=== PATIENT | female | born 1950 | race Caucasian/White ===

== ENCOUNTER 2017-08-13 12:01 | Emergency (ER) | payer MEDICARE, MEDICAID ==
[2017-08-13 12:45] VITALS: BP 138/78
--- NOTE | 2017-08-13 13:11 | EDM.PDOCBH ---
ED HPI GENERAL MEDICAL PROBLEM - General Chief Complaint: Drug or Alcohol Abuse Stated Complaint: DRINKING FOR A WHILD Time Seen by Provider: 08/13/17 13:10 Source of Information: Reports: Patient, Family History Limitations: Reports: No Limitations - History of Present Illness INITIAL COMMENTS - FREE TEXT/NARRATIVE: pt has been drinking heavily since mid May. She is drinking about a liter per day. She has been dry for a long time and then started drinking heavily again. Onset: Other ( drinking for several monthes/ ) Duration: Week(s): Associated Symptoms: Reports: No Other Symptoms - Related Data Allergies Allergy/AdvReac Type Severity Reaction Status Date / Time No Known Allergies Allergy Verified 08/13/17 12:45 Home Meds: Home Meds Atenolol 02/27/16 [History] DULoxetine [Cymbalta] 02/27/16 [History] Folic Acid 02/27/16 [History] Furosemide [Lasix] 02/27/16 [History] Gabapentin [Neurontin] 02/27/16 [History] Levothyroxine 02/27/16 [History] Omeprazole 02/27/16 [History] traZODone 50 mg PO BEDTIME 02/27/16 [History] Past Medical History HEENT History: Reports: Cataract, Impaired Vision Cardiovascular History: Reports: Heart Failure, Hypertension 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 Psychiatric History: Reports: Addiction - Past Surgical History Female Surgical History: Reports: Cervical Conization Musculoskeletal Surgical History: Reports: Shoulder Surgery Social & Family History - Tobacco Use Smoking Status *Q: Never Smoker - Alcohol Use Days Per Week of Alcohol Use: 7 Number of Drinks Per Day: 10 Total Drinks Per Week: 70 - Recreational Drug Use Recreational Drug Use: Yes Recreational Drug Type: Reports: Marijuana/Hashish Recreational Drug Use Frequency: Daily ED ROS GENERAL - Review of Systems Review Of Systems: See Below Constitutional: Reports: No Symptoms HEENT: Reports: No Symptoms Respiratory: Reports: No Symptoms Cardiovascular: Reports: No Symptoms Endocrine: Reports: No Symptoms GI/Abdominal: Reports: No Symptoms, Other (pt has not been omiting. ) : Reports: No Symptoms Musculoskeletal: Reports: No Symptoms Neurological: Reports: Other (pt is intoxicated. ) Psychiatric: Reports: Other (pt is intoxicated. ) ED EXAM, BEHAVIORAL HEALTH - Physical Exam Exam: See Below Text/Narrative:: pt arrived with a history of heavy drinking for several monthes . She wants help and wants to go to detox. Exam Limited By: No Limitations General Appearance: Alert, Other (pt is able to answer questions. She is intoxicated but has not been vomiting. ) Ears: Normal TMs Nose: Normal Inspection Throat/Mouth: Normal Inspection Head: Atraumatic Neck: Normal Inspection Respiratory/Chest: No Respiratory Distress, Other (pt has no rales present. ) Cardiovascular: Regular Rate, Rhythm GI/Abdominal: Soft, Non-Tender (Female) Exam: Deferred Rectal (Female) Exam: Deferred Back Exam: Normal Inspection Extremities: Normal Inspection Neurological: Alert, Normal Cognition, Other (intoxicated. ) Psychiatric: Alert, Normal Cognition COURSE, BEHAVIORAL HEALTH COMP - Course Vital Signs: Last Vital Signs Temp 35.9 C 08/13/17 12:43 Pulse 79 08/13/17 12:43 Resp 16 08/13/17 12:43 BP 138/78 08/13/17 12:43 Pulse Ox 90 L 08/13/17 12:43 Orders, Labs, Meds: Active Orders 24 hr Category Date Time Status UA W/MICROSCOPIC [URIN] Urgent Lab 08/13/17 12:46 Ordered Laboratory Tests 08/13/17 08/13/17 08/13/17 Range/Units 12:32 12:32 12:32 WBC 7.0 (4.5-11.0) K/uL RBC 4.93 (3.30-5.50) M/uL Hgb 15.2 H (12.0-15.0) g/dL Hct 45.8 (36.0-48.0) % MCV 93 (80-98) fL MCH 31 (27-31) pg MCHC 33 (32-36) % Plt Count 332 (150-400) K/uL Neut % (Auto) 36 (36-66) % Lymph % (Auto) 57 H (24-44) % [place] % (Auto) 6 (2-6) % Eos % (Auto) 1 L (2-4) % Baso % (Auto) 1 (0-1) % Sodium 148 (140-148) mmol/L Potassium 3.9 (3.6-5.2) mmol/L Chloride 105 (100-108) mmol/L Carbon Dioxide 34 H (21-32) mmol/L Anion Gap 12.9 (5.0-14.0) mmol/L BUN 7 (7-18) mg/dL Creatinine 0.6 (0.6-1.0) mg/dL Est Cr Clr Drug Dosing 80.72 mL/min Estimated GFR (MDRD) > 60 (>60) Glucose 92 (74-106) mg/dL Calcium 9.0 (8.5-10.1) mg/dL Total Bilirubin 0.2 (0.2-1.0) mg/dL AST 21 (15-37) U/L ALT 26 (12-78) U/L Alkaline Phosphatase 66 (46-116) U/L Total Protein 7.8 (6.4-8.2) g/dL Albumin 4.2 (3.4-5.0) g/dL Globulin 3.6 H (2.3-3.5) g/dL Albumin/Globulin Ratio 1.2 (1.2-2.2) Ethyl Alcohol 346 mg/dL Medications Discontinued Medications Generic Name Dose Route Start Last Admin Trade Name Freq PRN Reason Stop Dose Admin Lorazepam 1 mg 08/13/17 13:39 Ativan PO 08/13/17 13:40 ONETIME ONE Medical Clearance: 08/13/17 13:16 pt has a etoh level of .346, her other labs look good except she is on the dry side. oral fluids will be pushed. 08/13/17 13:59 The daughter in law was not able to take her to detox. She left her car keys here at the hospital. There is no other transportation to [place] and there is no bed until tomorrow at [facility]. Departure - Departure Time of Disposition: 14:01 Disposition: Home, Self-Care 01 Clinical Impression: Acute alcohol intoxication - Discharge Information Referrals: PCP,None [Primary Care Provider] - Forms: ED Department Discharge Care Plan Goals: pt is cleared for [facility]-- go to [facility] tomorrow. put labs in a envelope. - My Orders Last 24 Hours: My Active Orders 08/13/17 12:46 UA W/MICROSCOPIC [URIN] Urgent - Assessment/Plan Last 24 Hours: My Active Orders 08/13/17 12:46 UA W/MICROSCOPIC [URIN] Urgent
[2017-08-13] MEDS ORDERED: LORazepam 1 MG Tab PO ONE (13:39)
== END 2017-08-13 14:57 | disposition home or self-care (01) ==
LOC: JP.ED 12:01
DX: F10.129 Alcohol abuse with intoxication, unspecified (principal); Y90.8 Blood alcohol level of 240 mg/100 ml or more; I11.0 Hypertensive heart disease with heart failure; I50.9 Heart failure, unspecified
CPT/HCPCS: 36415; 80053; 85025; 99284; A9270; G0480

== ENCOUNTER 2017-08-30 08:15 | Emergency (ER) | payer MEDICARE, BC ==
[2017-08-30] MEDS ORDERED: LORazepam 1 MG Tab PO ONE (08:44)
--- NOTE | 2017-08-30 08:50 | EDM.PDOCBH ---
ED HPI GENERAL MEDICAL PROBLEM - General Chief Complaint: Drug or Alcohol Abuse Stated Complaint: EVAL FOR DETOX Time Seen by Provider: 08/30/17 08:45 Source of Information: Reports: Patient History Limitations: Reports: No Limitations - History of Present Illness INITIAL COMMENTS - FREE TEXT/NARRATIVE: pt arrived stating that she definitely wants to quit drinking. Her mother and grandmother were alcoholics. She has had a drinking problem all of her life. Onset: Other (pt hs not drank since yesterday and she is very shakey. ) Duration: Hour(s):, Other ( Pt was dry for year and now she is back drinking heavily. ) Location: Reports: Generalized Associated Symptoms: Reports: Other (pt is very shakey and is already starting withdrawal. 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 Psychiatric History: Reports: Addiction Endocrine/Metabolic History: Reports: Hypothyroidism - Past Surgical History Female Surgical History: Reports: Cervical Conization Musculoskeletal Surgical History: Reports: Shoulder Surgery Social & Family History - Tobacco Use Smoking Status *Q: Unknown Ever Smoked - Alcohol Use Days Per Week of Alcohol Use: 7 Number of Drinks Per Day: 10 Total Drinks Per Week: 70 - Recreational Drug Use Recreational Drug Use: Yes Recreational Drug Type: Reports: Marijuana/Hashish Recreational Drug Use Frequency: Daily ED ROS GENERAL - Review of Systems Review Of Systems: See Below Constitutional: Reports: Weakness, Other (pt is very shakey. ) HEENT: Reports: No Symptoms Respiratory: Reports: No Symptoms Cardiovascular: Reports: No Symptoms Endocrine: Reports: No Symptoms GI/Abdominal: Reports: No Symptoms : Reports: No Symptoms Musculoskeletal: Reports: Other ( very shakey) Skin: Reports: No Symptoms Neurological: Reports: Other ( withdrawal tremor) ED EXAM, BEHAVIORAL HEALTH - Physical Exam Exam: See Below Text/Narrative:: pt arrived stating that she had her last drink yesterday. She is very shakey. She was evaluated 2 weeks ago but [facility] not [facility] a bed. Exam Limited By: No Limitations General Appearance: Alert, Mild Distress, Other ( very shakey. pupils are equal and reactive. ) Ears: Normal TMs Nose: Normal Inspection Throat/Mouth: Normal Inspection Head: Atraumatic Neck: Normal Inspection Respiratory/Chest: No Respiratory Distress Cardiovascular: Regular Rate, Rhythm, Tachycardia GI/Abdominal: Soft, Non-Tender (Female) Exam: Deferred Rectal (Female) Exam: Deferred Back Exam: Normal Inspection Extremities: Normal Inspection Neurological: Alert, Normal Cognition Psychiatric: Alert COURSE, BEHAVIORAL HEALTH COMP - Course Vital Signs: Last Vital Signs Temp 36.5 C 08/30/17 08:26 Pulse 111 H 08/30/17 08:26 Resp 16 08/30/17 08:26 BP 131/94 H 08/30/17 08:26 Pulse Ox 99 08/30/17 08:26 Orders, Labs, Meds: Active Orders 24 hr Category Date Time Status DRUG SCREEN, URINE [URCHEM] Stat Lab 08/30/17 08:57 Ordered TSH ULTRASENSITIVE [CHEM] Stat Lab 08/30/17 09:13 Ordered UA W/MICROSCOPIC [URIN] Urgent Lab 08/30/17 08:57 Ordered Levofloxacin/Dextrose 5%-Water [Levaquin in D5W 500 MG/ Med 08/30/17 09:17 Active 100 ML] 500 mg Premix Bag 1 bag IV ONETIME Sodium Chloride 0.9% [Normal Saline] 1,000 ml Med 08/30/17 09:30 Active IV ASDIRECTED Medication Orders Sodium Chloride (Normal Saline) 1,000 mls @ 999 mls/hr IV ASDIRECTED NIRAJ Levofloxacin/Dextrose 500 mg/ (Premix) 100 mls @ 100 mls/hr IV ONETIME ONE Stop: 08/30/17 10:16 Laboratory Tests 08/30/17 08/30/17 08/30/17 Range/Units 08:51 08:51 08:51 WBC 12.8 H (4.5-11.0) K/uL RBC 5.79 H (3.30-5.50) M/uL Hgb 17.6 H D (12.0-15.0) g/dL Hct 51.6 H (36.0-48.0) % MCV 89 (80-98) fL MCH 30 (27-31) pg MCHC 34 (32-36) % Plt Count 368 (150-400) K/uL Neut % (Auto) 81 H (36-66) % Lymph % (Auto) 10 L (24-44) % [place] % (Auto) 8 H (2-6) % Eos % (Auto) 0 L (2-4) % Baso % (Auto) 0 (0-1) % Sodium 134 L (140-148) mmol/L Potassium 3.7 (3.6-5.2) mmol/L Chloride 92 L (100-108) mmol/L Carbon Dioxide 22 (21-32) mmol/L Anion Gap 23.7 H (5.0-14.0) mmol/L BUN 7 (7-18) mg/dL Creatinine 0.9 (0.6-1.0) mg/dL Est Cr Clr Drug Dosing 53.81 mL/min Estimated GFR (MDRD) > 60 (>60) Glucose 136 H (74-106) mg/dL Calcium 9.9 (8.5-10.1) mg/dL Total Bilirubin 1.4 H D (0.2-1.0) mg/dL AST 32 (15-37) U/L ALT 34 (12-78) U/L Alkaline Phosphatase 72 (46-116) U/L Total Protein 8.1 (6.4-8.2) g/dL Albumin 4.4 (3.4-5.0) g/dL Globulin 3.7 H (2.3-3.5) g/dL Albumin/Globulin Ratio 1.2 (1.2-2.2) Urine Color Urine Appearance Urine pH (4.5-8.0) Ur Specific [place] (1.008-1.030) Urine Protein (NEGATIVE) mg/dL Urine Glucose (UA) (NEGATIVE) mg/dL Urine Ketones (NEGATIVE) mg/dL Urine Occult Blood (NEGATIVE) Urine Nitrite (NEGATIVE) Urine Bilirubin (NEGATIVE) Urine Urobilinogen (NORMAL) mg/dL Ur Leukocyte Esterase (NEGATIVE) Urine RBC (0-5) Urine WBC (0-5) Ur Epithelial Cells Amorphous Sediment Urine Bacteria Urine Mucus Urine Other Urine Opiates Screen (NEGATIVE) Ur Oxycodone Screen (NEGATIVE) Urine Methadone Screen (NEGATIVE) Ur Propoxyphene Screen (NEGATIVE) Ur Barbiturates Screen (NEGATIVE) Ur Tricyclics Screen (NEGATIVE) Ur Phencyclidine Scrn (NEGATIVE) Ur Amphetamine Screen (NEGATIVE) U Methamphetamines Scrn (NEGATIVE) Urine MDMA Screen (NEGATIVE) U Benzodiazepines Scrn (NEGATIVE) U Cocaine Metab Screen (NEGATIVE) U Marijuana (THC) Screen (NEGATIVE) Ethyl Alcohol < 3 mg/dL 08/30/17 08/30/17 Range/Units 08:57 08:57 WBC (4.5-11.0) K/uL RBC (3.30-5.50) M/uL Hgb (12.0-15.0) g/dL Hct (36.0-48.0) % MCV (80-98) fL MCH (27-31) pg MCHC (32-36) % Plt Count (150-400) K/uL Neut % (Auto) (36-66) % Lymph % (Auto) (24-44) % [place] % (Auto) (2-6) % Eos % (Auto) (2-4) % Baso % (Auto) (0-1) % Sodium (140-148) mmol/L Potassium (3.6-5.2) mmol/L Chloride (100-108) mmol/L Carbon Dioxide (21-32) mmol/L Anion Gap (5.0-14.0) mmol/L BUN (7-18) mg/dL Creatinine (0.6-1.0) mg/dL Est Cr Clr Drug Dosing mL/min Estimated GFR (MDRD) (>60) Glucose (74-106) mg/dL Calcium (8.5-10.1) mg/dL Total Bilirubin (0.2-1.0) mg/dL AST (15-37) U/L ALT (12-78) U/L Alkaline Phosphatase (46-116) U/L Total Protein (6.4-8.2) g/dL Albumin (3.4-5.0) g/dL Globulin (2.3-3.5) g/dL Albumin/Globulin Ratio (1.2-2.2) Urine Color Yellow Urine Appearance Cloudy Urine pH 5.0 (4.5-8.0) Ur Specific [place] 1.025 (1.008-1.030) Urine Protein 500 H (NEGATIVE) mg/dL Urine Glucose (UA) 50 H (NEGATIVE) mg/dL Urine Ketones 150 H (NEGATIVE) mg/dL Urine Occult Blood Moderate (NEGATIVE) Urine Nitrite Negative (NEGATIVE) Urine Bilirubin Small (NEGATIVE) Urine Urobilinogen 1 (NORMAL) mg/dL Ur Leukocyte Esterase Large (NEGATIVE) Urine RBC 5-10 H (0-5) Urine WBC 30-40 H (0-5) Ur Epithelial Cells Moderate Amorphous Sediment Few Urine Bacteria Many Urine Mucus Many Urine Other See note Urine Opiates Screen Positive H (NEGATIVE) Ur Oxycodone Screen Negative (NEGATIVE) Urine Methadone Screen Negative (NEGATIVE) Ur Propoxyphene Screen Negative (NEGATIVE) Ur Barbiturates Screen Negative (NEGATIVE) Ur Tricyclics Screen Negative (NEGATIVE) Ur Phencyclidine Scrn Negative (NEGATIVE) Ur Amphetamine Screen Negative (NEGATIVE) U Methamphetamines Scrn Negative (NEGATIVE) Urine MDMA Screen Negative (NEGATIVE) U Benzodiazepines Scrn Negative (NEGATIVE) U Cocaine Metab Screen Negative (NEGATIVE) U Marijuana (THC) Screen Positive H (NEGATIVE) Ethyl Alcohol mg/dL Medications Generic Name Dose Route Start Last Admin Trade Name Freq PRN Reason Stop Dose Admin Sodium Chloride 1,000 mls @ 999 mls/hr 08/30/17 09:30 Normal Saline IV ASDIRECTED NIRAJ Levofloxacin/Dextrose 500 mg/ 100 mls @ 100 mls/hr 08/30/17 09:17 Premix IV 08/30/17 10:16 ONETIME ONE Discontinued Medications Generic Name Dose Route Start Last Admin Trade Name Freq PRN Reason Stop Dose Admin Lorazepam 1 mg 08/30/17 08:44 08/30/17 08:50 Ativan PO 08/30/17 08:45 1 mg ONETIME ONE Administration Medical Clearance: 08/30/17 09:18 pt is dehydrated and was found to have a UTI. She does have opiates in her urine and marajauna. 08/30/17 09:19 Pt will have a liter of fluid and levoquin Departure - Departure Time of Disposition: 09:20 Disposition: DC/Tfer to [facility] Hosp/Unit 65 Condition: Fair Clinical Impression: Withdrawal symptoms, alcohol, Dehydration, UTI (urinary tract infection) - Discharge Information Referrals: PCP,None [Primary Care Provider] - Forms: ED Department Discharge Care Plan Goals: transfer to [facility] 500mg bid for UTI - My Orders Last 24 Hours: My Active Orders 08/30/17 08:57 DRUG SCREEN, URINE [URCHEM] Stat UA W/MICROSCOPIC [URIN] Urgent 08/30/17 09:13 TSH ULTRASENSITIVE [CHEM] Stat 08/30/17 09:17 Levofloxacin/Dextrose 5%-Water [Levaquin in D5W 500 MG/100 ML] 500 mg Premix Bag 1 bag IV ONETIME 08/30/17 09:30 Sodium Chloride 0.9% [Normal Saline] 1,000 ml IV ASDIRECTED - Assessment/Plan Last 24 Hours: My Active Orders 08/30/17 08:57 DRUG SCREEN, URINE [URCHEM] Stat UA W/MICROSCOPIC [URIN] Urgent 08/30/17 09:13 TSH ULTRASENSITIVE [CHEM] Stat 08/30/17 09:17 Levofloxacin/Dextrose 5%-Water [Levaquin in D5W 500 MG/100 ML] 500 mg Premix Bag 1 bag IV ONETIME 08/30/17 09:30 Sodium Chloride 0.9% [Normal Saline] 1,000 ml IV ASDIRECTED
[2017-08-30] MEDS ORDERED: Levofloxacin/Dextrose 5%-Water 500 MG in Premix Bag 1 BAG IV ONE (09:17)
[2017-08-30] MEDS ORDERED: LORazepam 2 MG/ML SDV IVPUSH ONE (09:23)
[2017-08-30] MEDS ORDERED: Sodium Chloride 0.9% 1,000 ML IV SCH (09:30)
[2017-08-30 11:02] VITALS: BP 127/71
== END 2017-08-30 11:04 ==
LOC: JP.ED 08:15
DX: N39.0 Urinary tract infection, site not specified (principal); E86.0 Dehydration; I11.0 Hypertensive heart disease with heart failure; I50.9 Heart failure, unspecified; Z79.899 Other long term (current) drug therapy
CPT/HCPCS: 36415; 80053; 80305; 81001; 84443; 85025; 96365; 96375; 99285; A9270; G0480; J1956; J2060; J7040

== ENCOUNTER 2017-09-04 09:32 | Emergency (ER) | payer MEDICARE, MEDICAID ==
[2017-09-04 09:51] VITALS: BP 119/50
--- NOTE | 2017-09-04 10:18 | EDM.PDOCBH ---
ED HPI GENERAL MEDICAL PROBLEM - General Chief Complaint: Drug or Alcohol Abuse Stated Complaint: DRINKING PAST SEVERAL DAYS Time Seen by Provider: 09/04/17 10:11 Source of Information: Reports: Patient, Family, Old Records, RN Notes Reviewed History Limitations: Reports: Intoxication - History of Present Illness INITIAL COMMENTS - FREE TEXT/NARRATIVE: 67-year-old female presents to the emergency department today requesting detoxification facility placement. She was recently here on 30 August the same evaluation found to have a urinary tract infection at that time treated with Levaquin. She did go to [facility] detoxification facility was discharged on Tuesday, started drinking again over the last 24 hours now has return to the emergency department requesting detoxification - Related Data Allergies Allergy/AdvReac Type Severity Reaction Status Date / Time No Known Allergies Allergy Verified 08/30/17 08:28 Home Meds: Home Meds DULoxetine [Cymbalta] 60 mg PO DAILY 02/27/16 [History] Furosemide [Lasix] 20 mg PO ASDIRECTED PRN 02/27/16 [History] Gabapentin [Neurontin] 300 mg PO BID 02/27/16 [History] Levothyroxine 150 mcg PO DAILY 02/27/16 [History] Omeprazole 20 mg PO ASDIRECTED PRN 02/27/16 [History] traZODone 200 mg PO BEDTIME 02/27/16 [History] Past Medical History HEENT History: Reports: Cataract, Impaired Vision 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 Psychiatric History: Reports: Addiction Endocrine/Metabolic History: Reports: Hypothyroidism - Past Surgical History GI Surgical History: Reports: Hernia, Abdominal Other GI Surgeries/Procedures: tummy tuck Female Surgical History: Reports: Cervical Conization Musculoskeletal Surgical History: Reports: Shoulder Surgery Social & Family History - Tobacco Use Smoking Status *Q: Never Smoker - Caffeine Use Caffeine Use: Reports: Coffee, Energy Drinks, Soda, Tea - Alcohol Use Date of Last Drink: 09/04/17 - Recreational Drug Use Recreational Drug Type: Reports: Marijuana/Hashish Recreational Drug Use Frequency: Daily ED ROS GENERAL - Review of Systems Review Of Systems: ROS reveals no pertinent complaints other than HPI. ED EXAM, BEHAVIORAL HEALTH - Physical Exam Exam: See Below Exam Limited By: Intoxication General Appearance: Alert, No Apparent Distress Respiratory/Chest: No Respiratory Distress, Lungs Clear, Normal Breath Sounds, No Accessory Muscle Use Cardiovascular: Regular Rate, Rhythm, No Murmur GI/Abdominal: Soft, Non-Tender COURSE, BEHAVIORAL HEALTH COMP - Course Vital Signs: Last Vital Signs Temp 96.4 F 09/04/17 09:49 Pulse 80 09/04/17 09:49 Resp 20 09/04/17 09:49 BP 119/50 L 09/04/17 09:49 Pulse Ox 95 09/04/17 09:49 Orders, Labs, Meds: Active Orders 24 hr Category Date Time Status DRUG SCREEN, URINE [URCHEM] Stat Lab 09/04/17 10:26 Ordered Laboratory Tests 09/04/17 09/04/17 09/04/17 Range/Units 10:26 10:26 10:26 WBC 5.5 (4.5-11.0) K/uL RBC 4.63 (3.30-5.50) M/uL Hgb 14.5 D (12.0-15.0) g/dL Hct 43.0 (36.0-48.0) % MCV 93 (80-98) fL MCH 31 (27-31) pg MCHC 34 (32-36) % Plt Count 247 (150-400) K/uL Neut % (Auto) 36 (36-66) % Lymph % (Auto) 53 H (24-44) % [place] % (Auto) 8 H (2-6) % Eos % (Auto) 2 (2-4) % Baso % (Auto) 1 (0-1) % Sodium 148 (140-148) mmol/L Potassium 4.1 (3.6-5.2) mmol/L Chloride 108 (100-108) mmol/L Carbon Dioxide 32 (21-32) mmol/L Anion Gap 7.7 (5.0-14.0) mmol/L BUN 9 (7-18) mg/dL Creatinine 0.6 (0.6-1.0) mg/dL Est Cr Clr Drug Dosing 80.72 mL/min Estimated GFR (MDRD) > 60 (>60) Glucose 91 (74-106) mg/dL Calcium 8.1 L D (8.5-10.1) mg/dL Total Bilirubin 0.2 D (0.2-1.0) mg/dL AST 19 (15-37) U/L ALT 26 (12-78) U/L Alkaline Phosphatase 60 (46-116) U/L Total Protein 7.2 (6.4-8.2) g/dL Albumin 3.7 (3.4-5.0) g/dL Globulin 3.5 (2.3-3.5) g/dL Albumin/Globulin Ratio 1.1 L (1.2-2.2) Urine Opiates Screen (NEGATIVE) Ur Oxycodone Screen (NEGATIVE) Urine Methadone Screen (NEGATIVE) Ur Propoxyphene Screen (NEGATIVE) Ur Barbiturates Screen (NEGATIVE) Ur Tricyclics Screen (NEGATIVE) Ur Phencyclidine Scrn (NEGATIVE) Ur Amphetamine Screen (NEGATIVE) U Methamphetamines Scrn (NEGATIVE) Urine MDMA Screen (NEGATIVE) U Benzodiazepines Scrn (NEGATIVE) U Cocaine Metab Screen (NEGATIVE) U Marijuana (THC) Screen (NEGATIVE) Ethyl Alcohol 292 mg/dL 09/04/17 Range/Units 10:26 WBC (4.5-11.0) K/uL RBC (3.30-5.50) M/uL Hgb (12.0-15.0) g/dL Hct (36.0-48.0) % MCV (80-98) fL MCH (27-31) pg MCHC (32-36) % Plt Count (150-400) K/uL Neut % (Auto) (36-66) % Lymph % (Auto) (24-44) % [place] % (Auto) (2-6) % Eos % (Auto) (2-4) % Baso % (Auto) (0-1) % Sodium (140-148) mmol/L Potassium (3.6-5.2) mmol/L Chloride (100-108) mmol/L Carbon Dioxide (21-32) mmol/L Anion Gap (5.0-14.0) mmol/L BUN (7-18) mg/dL Creatinine (0.6-1.0) mg/dL Est Cr Clr Drug Dosing mL/min Estimated GFR (MDRD) (>60) Glucose (74-106) mg/dL Calcium (8.5-10.1) mg/dL Total Bilirubin (0.2-1.0) mg/dL AST (15-37) U/L ALT (12-78) U/L Alkaline Phosphatase (46-116) U/L Total Protein (6.4-8.2) g/dL Albumin (3.4-5.0) g/dL Globulin (2.3-3.5) g/dL Albumin/Globulin Ratio (1.2-2.2) Urine Opiates Screen Negative (NEGATIVE) Ur Oxycodone Screen Positive H (NEGATIVE) Urine Methadone Screen Positive H (NEGATIVE) Ur Propoxyphene Screen Negative (NEGATIVE) Ur Barbiturates Screen Negative (NEGATIVE) Ur Tricyclics Screen Negative (NEGATIVE) Ur Phencyclidine Scrn Negative (NEGATIVE) Ur Amphetamine Screen Negative (NEGATIVE) U Methamphetamines Scrn Negative (NEGATIVE) Urine MDMA Screen Negative (NEGATIVE) U Benzodiazepines Scrn Negative (NEGATIVE) U Cocaine Metab Screen Negative (NEGATIVE) U Marijuana (THC) Screen Negative (NEGATIVE) Ethyl Alcohol mg/dL Medications Discontinued Medications Generic Name Dose Route Start Last Admin Trade Name Freq PRN Reason Stop Dose Admin Lorazepam 2 mg 09/04/17 10:48 09/04/17 10:58 Ativan PO 09/04/17 10:49 2 mg ONETIME ONE Administration Departure - Departure Time of Disposition: 11:21 Disposition: DC/Tfer to In Rehab Fac 62 Condition: Poor Clinical Impression: Acute alcohol intoxication Qualifiers: Complication of substance-induced condition: uncomplicated Qualified Code(s): F10.929 - Alcohol use, unspecified with intoxication, unspecified - Discharge Information Referrals: PCP,None [Primary Care Provider] - Forms: ED Department Discharge Additional Instructions: Please report to [facility] for treatment - My Orders Last 24 Hours: My Active Orders 09/04/17 10:26 DRUG SCREEN, URINE [URCHEM] Stat - Assessment/Plan Last 24 Hours: My Active Orders 09/04/17 10:26 DRUG SCREEN, URINE [URCHEM] Stat Plan: Assessment Acuity = acute Site and laterality = alcohol abuse and intoxication Etiology = EtOH Manifestations = none Location of injury = Home Lab values = alcohol level is 292, CBC, CMP unremarkable urine drug screen positive for methadone and opiates Plan There is a bed available at [facility] family members will drive her to this facility This note was dictated using [email or web address] voice recognition software please call with any questions on syntax or grammar.
[2017-09-04] MEDS ORDERED: LORazepam 1 MG Tab PO ONE (10:48)
== END 2017-09-04 11:43 ==
LOC: JP.ED 09:32
DX: F10.120 Alcohol abuse with intoxication, uncomplicated (principal); Y90.8 Blood alcohol level of 240 mg/100 ml or more; I11.0 Hypertensive heart disease with heart failure; I50.9 Heart failure, unspecified; E03.9 Hypothyroidism, unspecified; Z79.899 Other long term (current) drug therapy
CPT/HCPCS: 36415; 80053; 85025; 99284; A9270; G0480

== ENCOUNTER 2017-10-01 13:52 | Emergency (ER) | payer MEDICARE, BC ==
[2017-10-01] MEDS ORDERED: LORazepam 2 MG/ML SDV IM ONE (14:25)
--- NOTE | 2017-10-01 14:36 | EDM.PDOCBH ---
ED HPI GENERAL MEDICAL PROBLEM - General Chief Complaint: Drug or Alcohol Abuse Stated Complaint: WITHDRAWEL, DETOX Time Seen by Provider: 10/01/17 14:19 Source of Information: Reports: Patient, EMS Notes Reviewed, RN Notes Reviewed History Limitations: Reports: No Limitations - History of Present Illness INITIAL COMMENTS - FREE TEXT/NARRATIVE: 7-year-old female presents emergency department with complaint of alcohol abuse and is requesting, she emergency department multiple times does have a plan to go to a focus group in [place] for alcohol treatment. Last consumed alcohol this morning - Related Data Allergies Allergy/AdvReac Type Severity Reaction Status Date / Time No Known Allergies Allergy Verified 10/01/17 14:23 Home Meds: Home Meds DULoxetine [Cymbalta] 60 mg PO DAILY 02/27/16 [History] Furosemide [Lasix] 20 mg PO ASDIRECTED PRN 02/27/16 [History] Gabapentin [Neurontin] 300 mg PO BID 02/27/16 [History] Levothyroxine 150 mcg PO DAILY 02/27/16 [History] Omeprazole 20 mg PO ASDIRECTED PRN 02/27/16 [History] traZODone 200 mg PO BEDTIME 02/27/16 [History] Past Medical History HEENT History: Reports: Cataract, Impaired Vision Cardiovascular History: Reports: Heart Failure, Hypertension 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 Psychiatric History: Reports: Addiction Endocrine/Metabolic History: Reports: Hypothyroidism - Past Surgical History GI Surgical History: Reports: Hernia, Abdominal Other GI Surgeries/Procedures: tummy tuck Female Surgical History: Reports: Cervical Conization Musculoskeletal Surgical History: Reports: Shoulder Surgery Social & Family History - Tobacco Use Smoking Status *Q: Current Every Day Smoker - Caffeine Use Caffeine Use: Reports: Coffee, Energy Drinks, Soda, Tea ED ROS GENERAL - Review of Systems Review Of Systems: See Below Constitutional: Reports: No Symptoms HEENT: Reports: No Symptoms Respiratory: Reports: No Symptoms Cardiovascular: Reports: No Symptoms GI/Abdominal: Reports: No Symptoms Musculoskeletal: Reports: No Symptoms Skin: Reports: No Symptoms Neurological: Reports: Tremors ED EXAM, BEHAVIORAL HEALTH - Physical Exam Exam: See Below Exam Limited By: Intoxication General Appearance: Alert, WD/WN, No Apparent Distress Neck: Normal Inspection, Supple, Non-Tender, Full Range of Motion Respiratory/Chest: No Respiratory Distress, Lungs Clear, Normal Breath Sounds, No Accessory Muscle Use, Chest Non-Tender Cardiovascular: Regular Rate, Rhythm, No Murmur GI/Abdominal: Soft, Non-Tender COURSE, BEHAVIORAL HEALTH COMP - Course Vital Signs: Last Vital Signs Temp 97.4 F 10/01/17 14:16 Pulse 87 10/01/17 14:16 Resp 16 10/01/17 14:16 BP 143/59 H 10/01/17 14:16 Pulse Ox 92 L 10/01/17 14:16 Orders, Labs, Meds: Active Orders 24 hr Category Date Time Status DRUG SCREEN, URINE [URCHEM] Stat Lab 10/01/17 14:30 Ordered UA W/MICROSCOPIC [URIN] Urgent Lab 10/01/17 14:30 Ordered Laboratory Tests 10/01/17 10/01/17 10/01/17 Range/Units 14:30 14:30 14:43 WBC 5.2 (4.5-11.0) K/uL RBC 4.72 (3.30-5.50) M/uL Hgb 14.8 (12.0-15.0) g/dL Hct 43.8 (36.0-48.0) % MCV 93 (80-98) fL MCH 31 (27-31) pg MCHC 34 (32-36) % Plt Count 265 (150-400) K/uL Neut % (Auto) 39 (36-66) % Lymph % (Auto) 52 H (24-44) % [place] % (Auto) 8 H (2-6) % Eos % (Auto) 1 L (2-4) % Baso % (Auto) 1 (0-1) % Sodium (140-148) mmol/L Potassium (3.6-5.2) mmol/L Chloride (100-108) mmol/L Carbon Dioxide (21-32) mmol/L Anion Gap (5.0-14.0) mmol/L BUN (7-18) mg/dL Creatinine (0.6-1.0) mg/dL Est Cr Clr Drug Dosing mL/min Estimated GFR (MDRD) (>60) Glucose (74-106) mg/dL Calcium (8.5-10.1) mg/dL Total Bilirubin (0.2-1.0) mg/dL AST (15-37) U/L ALT (12-78) U/L Alkaline Phosphatase (46-116) U/L Total Protein (6.4-8.2) g/dL Albumin (3.4-5.0) g/dL Globulin (2.3-3.5) g/dL Albumin/Globulin Ratio (1.2-2.2) Urine Color Yellow Urine Appearance Clear Urine pH 6.0 (4.5-8.0) Ur Specific [place] 1.010 (1.008-1.030) Urine Protein Negative (NEGATIVE) mg/dL Urine Glucose (UA) Normal (NEGATIVE) mg/dL Urine Ketones Negative (NEGATIVE) mg/dL Urine Occult Blood Negative (NEGATIVE) Urine Nitrite Negative (NEGATIVE) Urine Bilirubin Negative (NEGATIVE) Urine Urobilinogen Normal (NORMAL) mg/dL Ur Leukocyte Esterase Negative (NEGATIVE) Urine RBC Not seen (0-5) Urine WBC 0-5 (0-5) Ur Epithelial Cells Rare Amorphous Sediment Not seen Urine Bacteria Rare Urine Mucus Not seen Urine Opiates Screen Negative (NEGATIVE) Ur Oxycodone Screen Negative (NEGATIVE) Urine Methadone Screen Negative (NEGATIVE) Ur Propoxyphene Screen Negative (NEGATIVE) Ur Barbiturates Screen Negative (NEGATIVE) Ur Tricyclics Screen Negative (NEGATIVE) Ur Phencyclidine Scrn Negative (NEGATIVE) Ur Amphetamine Screen Negative (NEGATIVE) U Methamphetamines Scrn Negative (NEGATIVE) Urine MDMA Screen Negative (NEGATIVE) U Benzodiazepines Scrn Positive H (NEGATIVE) U Cocaine Metab Screen Negative (NEGATIVE) U Marijuana (THC) Screen Positive H (NEGATIVE) Ethyl Alcohol mg/dL 10/01/17 10/01/17 Range/Units 14:43 14:43 WBC (4.5-11.0) K/uL RBC (3.30-5.50) M/uL Hgb (12.0-15.0) g/dL Hct (36.0-48.0) % MCV (80-98) fL MCH (27-31) pg MCHC (32-36) % Plt Count (150-400) K/uL Neut % (Auto) (36-66) % Lymph % (Auto) (24-44) % [place] % (Auto) (2-6) % Eos % (Auto) (2-4) % Baso % (Auto) (0-1) % Sodium 140 (140-148) mmol/L Potassium 4.0 (3.6-5.2) mmol/L Chloride 101 (100-108) mmol/L Carbon Dioxide 32 (21-32) mmol/L Anion Gap 7.2 (5.0-14.0) mmol/L BUN 6 L (7-18) mg/dL Creatinine 0.7 (0.6-1.0) mg/dL Est Cr Clr Drug Dosing 69.19 mL/min Estimated GFR (MDRD) > 60 (>60) Glucose 77 (74-106) mg/dL Calcium 8.3 L (8.5-10.1) mg/dL Total Bilirubin 0.3 (0.2-1.0) mg/dL AST 22 (15-37) U/L ALT 28 (12-78) U/L Alkaline Phosphatase 69 (46-116) U/L Total Protein 7.2 (6.4-8.2) g/dL Albumin 3.8 (3.4-5.0) g/dL Globulin 3.4 (2.3-3.5) g/dL Albumin/Globulin Ratio 1.1 L (1.2-2.2) Urine Color Urine Appearance Urine pH (4.5-8.0) Ur Specific [place] (1.008-1.030) Urine Protein (NEGATIVE) mg/dL Urine Glucose (UA) (NEGATIVE) mg/dL Urine Ketones (NEGATIVE) mg/dL Urine Occult Blood (NEGATIVE) Urine Nitrite (NEGATIVE) Urine Bilirubin (NEGATIVE) Urine Urobilinogen (NORMAL) mg/dL Ur Leukocyte Esterase (NEGATIVE) Urine RBC (0-5) Urine WBC (0-5) Ur Epithelial Cells Amorphous Sediment Urine Bacteria Urine Mucus Urine Opiates Screen (NEGATIVE) Ur Oxycodone Screen (NEGATIVE) Urine Methadone Screen (NEGATIVE) Ur Propoxyphene Screen (NEGATIVE) Ur Barbiturates Screen (NEGATIVE) Ur Tricyclics Screen (NEGATIVE) Ur Phencyclidine Scrn (NEGATIVE) Ur Amphetamine Screen (NEGATIVE) U Methamphetamines Scrn (NEGATIVE) Urine MDMA Screen (NEGATIVE) U Benzodiazepines Scrn (NEGATIVE) U Cocaine Metab Screen (NEGATIVE) U Marijuana (THC) Screen (NEGATIVE) Ethyl Alcohol 214 mg/dL Medications Discontinued Medications Generic Name Dose Route Start Last Admin Trade Name Freq PRN Reason Stop Dose Admin Lorazepam 1 mg 10/01/17 14:25 10/01/17 14:50 Ativan IM 10/01/17 14:26 1 mg ONETIME ONE Administration Departure - Departure Time of Disposition: 15:40 Disposition: DC/Tfer to Inpt Rehab Fac 62 Condition: Poor Clinical Impression: Alcohol abuse Acute alcohol intoxication Qualifiers: Complication of substance-induced condition: uncomplicated Qualified Code(s): F10.929 - Alcohol use, unspecified with intoxication, unspecified - Discharge Information Referrals: PCP,None [Primary Care Provider] - Forms: ED Department Discharge Additional Instructions: Please report to [facility] for further treatment - My Orders Last 24 Hours: My Active Orders 10/01/17 14:30 DRUG SCREEN, URINE [URCHEM] Stat UA W/MICROSCOPIC [URIN] Urgent - Assessment/Plan Last 24 Hours: My Active Orders 10/01/17 14:30 DRUG SCREEN, URINE [URCHEM] Stat UA W/MICROSCOPIC [URIN] Urgent Plan: Assessment Acuity = acute Site and laterality = alcohol abuse and dependence complicated with cannabis use Etiology = EtOH Manifestations = none Location of injury = Home Lab values = CBC CMP unremarkable urine drug screen positive for benzodiazepines and cannabis alcohol level at 214 Plan Female that was available at [facility] detox[facility] facility she will be transported with family members This note was dictated using [employer] voice recognition software please call with any questions on syntax or grammar.
[2017-10-01 15:44] VITALS: BP 106/57
== END 2017-10-01 16:02 ==
LOC: JP.ED 13:52
DX: F10.120 Alcohol abuse with intoxication, uncomplicated (principal); Y90.7 Blood alcohol level of 200-239 mg/100 ml; F12.90 Cannabis use, unspecified, uncomplicated; Z79.899 Other long term (current) drug therapy; F17.200 Nicotine dependence, unspecified, uncomplicated; I11.0 Hypertensive heart disease with heart failure; I50.9 Heart failure, unspecified; E03.9 Hypothyroidism, unspecified
CPT/HCPCS: 36415; 80053; 80305; 81001; 85025; 99284; G0480; J2060

== ENCOUNTER 2018-05-17 17:17 | Emergency (ER) | payer MEDICARE, BC ==
--- NOTE | 2018-05-17 17:51 | EDM.PDOCBH ---
ED HPI GENERAL MEDICAL PROBLEM - General Chief Complaint: Drug or Alcohol Abuse Stated Complaint: MEDICAL VIA [facility] Time Seen by Provider: 05/17/18 17:35 Source of Information: Reports: Patient, EMS History Limitations: Reports: No Limitations - History of Present Illness INITIAL COMMENTS - FREE TEXT/NARRATIVE: 67-year-old female, chronic alcoholic who has been drinking for 5 straight days and wants to go to detox. This is a chronic recurring problem. She has no other complaints. Onset: Unknown/Unsure Associated Symptoms: Reports: No Other Symptoms general Pain Score (Numeric/FACES): 4 - Related Data Allergies Allergy/AdvReac Type Severity Reaction Status Date / Time No Known Allergies Allergy Verified 05/17/18 17:23 Home Meds: Home Meds DULoxetine [Cymbalta] 60 mg PO DAILY 02/27/16 [History] Furosemide [Lasix] 20 mg PO ASDIRECTED PRN 02/27/16 [History] Gabapentin [Neurontin] 900 mg PO BID 02/27/16 [History] Levothyroxine 88 mcg PO DAILY 02/27/16 [History] Omeprazole 20 mg PO ASDIRECTED PRN 02/27/16 [History] traZODone 200 mg PO BEDTIME 02/27/16 [History] Potassium Chloride [Klor-Con M20] 20 meq PO DAILY PRN 11/22/17 [History] Spironolactone [Aldactone] 25 mg PO DAILY 11/22/17 [History] busPIRone [Buspar] 10 mg PO BID 11/22/17 [History] hydrOXYzine pamoate [Vistaril] 1 - 2 tab PO QID PRN 11/22/17 [History] Past Medical History HEENT History: Reports: Cataract, Impaired Vision Cardiovascular History: Reports: Heart Failure, Hypertension 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 Psychiatric History: Reports: Addiction, Anxiety, Depression Endocrine/Metabolic History: Reports: Hypothyroidism - Past Surgical History GI Surgical History: Reports: Hernia, Abdominal Other GI Surgeries/Procedures: tummy tuck Female Surgical History: Reports: Cervical Conization Musculoskeletal Surgical History: Reports: Shoulder Surgery Social & Family History - Family History Family Medical History: Noncontributory - Tobacco Use Smoking Status *Q: Never Smoker - Caffeine Use Caffeine Use: Reports: Coffee - Alcohol Use Days Per Week of Alcohol Use: 7 Number of Drinks Per Day: 12 Total Drinks Per Week: 84 - Recreational Drug Use Recreational Drug Use: Yes Recreational Drug Type: Reports: Marijuana/Hashish Recreational Drug Use Frequency: Monthly ED ROS GENERAL - Review of Systems Review Of Systems: See Below Constitutional: Reports: Malaise, Decreased Appetite. Denies: Fever, Chills Respiratory: Denies: Shortness of Breath Cardiovascular: Denies: Chest Pain GI/Abdominal: Reports: Nausea. Denies: Abdominal Pain, Vomiting : Reports: No Symptoms Neurological: Denies: Headache Psychiatric: Reports: No Symptoms ED EXAM, BEHAVIORAL HEALTH - Physical Exam Exam: See Below Exam Limited By: Intoxication General Appearance: Alert, No Apparent Distress Eye Exam: Bilateral Eye: EOMI Head: Atraumatic Respiratory/Chest: No Respiratory Distress, Lungs Clear Cardiovascular: Regular Rate, Rhythm Extremities: Normal Inspection Neurological: Alert, Other (Patient is fairly intoxicated) Skin Exam: Warm, Dry COURSE, BEHAVIORAL HEALTH COMP - Course Vital Signs: Last Vital Signs Temp 95.3 F L 05/17/18 22:20 Pulse 89 05/17/18 22:20 Resp 16 05/17/18 22:20 BP 149/84 H 05/17/18 22:20 Pulse Ox 89 L 05/17/18 22:20 Orders, Labs, Meds: Laboratory Tests 05/17/18 05/17/18 05/17/18 Range/Units 18:00 18:00 18:00 WBC 7.2 (4.5-11.0) K/uL RBC 4.98 (3.30-5.50) M/uL Hgb 16.1 H (12.0-15.0) g/dL Hct 47.4 (36.0-48.0) % MCV 95 (80-98) fL MCH 32 H (27-31) pg MCHC 34 (32-36) % Plt Count 286 (150-400) K/uL Neut % (Auto) 51 (36-66) % Lymph % (Auto) 43 (24-44) % [place] % (Auto) 5 (2-6) % Eos % (Auto) 1 L (2-4) % Baso % (Auto) 1 (0-1) % Sodium 145 (140-148) mmol/L Potassium 3.9 (3.6-5.2) mmol/L Chloride 105 (100-108) mmol/L Carbon Dioxide 26 (21-32) mmol/L Anion Gap 14.0 (5.0-14.0) mmol/L BUN 8 D (7-18) mg/dL Creatinine 0.6 (0.6-1.0) mg/dL Est Cr Clr Drug Dosing 80.72 mL/min Estimated GFR (MDRD) > 60 (>60) Glucose 85 (74-106) mg/dL Calcium 8.5 (8.5-10.1) mg/dL Ethyl Alcohol 348 mg/dL Medications Discontinued Medications Generic Name Dose Route Start Last Admin Trade Name Freq PRN Reason Stop Dose Admin Lorazepam 1 mg 05/17/18 20:00 05/17/18 20:13 Ativan PO 05/17/18 20:01 1 mg ONETIME ONE Administration Re-Assessment/Re-Exam: EtOH is 0.348, CBC and CMP were otherwise reassuring. Normal saline was continued and arrangements were made for the patient to go to [facility] for detoxification. Departure - Departure Time of Disposition: 22:25 Disposition: DC/Tfer to Other 70 Condition: Fair Clinical Impression: Alcohol abuse, Alcohol intoxication - Discharge Information Instructions: Alcohol Intoxication, [id number] Referrals: PCP,None [Primary Care Provider] - Forms: ED Department Discharge Care Plan Goals: Patient is to be transferred to [place] for detoxification and possibly treatment.
[2018-05-17] MEDS ORDERED: LORazepam 1 MG Tab PO ONE (20:00)
[2018-05-17 22:21] VITALS: BP 149/84
== END 2018-05-17 22:15 | disposition other institution (70) ==
LOC: JP.ED 17:17
DX: F10.129 Alcohol abuse with intoxication, unspecified (principal); Y90.8 Blood alcohol level of 240 mg/100 ml or more; I50.9 Heart failure, unspecified; I10 Essential (primary) hypertension; G89.29 Other chronic pain; M54.9 Dorsalgia, unspecified; M54.2 Cervicalgia; M79.7 Fibromyalgia; F41.9 Anxiety disorder, unspecified; F32.9 Major depressive disorder, single episode, unspecified; E03.9 Hypothyroidism, unspecified; Z79.899 Other long term (current) drug therapy
CPT/HCPCS: 36415; 80048; 85025; 99285; A9270; G0480

== ENCOUNTER 2018-06-06 23:54 | Emergency (ER) | payer MEDICARE, BC ==
[2018-06-06 23:58] VITALS: BP 139/84
--- NOTE | 2018-06-07 01:02 | EDM.PDOC ---
<Oscar Bacon - Last Filed: 06/07/18 06:48> ED HPI GENERAL MEDICAL PROBLEM - General Chief Complaint: Drug or Alcohol Abuse Stated Complaint: ETOH ABUSE Time Seen by Provider: 06/07/18 00:15 Source of Information: Reports: Patient, EMS History Limitations: Reports: Intoxication - History of Present Illness INITIAL COMMENTS - FREE TEXT/NARRATIVE: 67-year-old female with chronic alcoholism, who I just sent to detox 2 weeks ago arrives by ambulance after drinking several liters of alcohol over the past several days. She again wants to go to detox. Onset: Unknown/Unsure Associated Symptoms: Reports: No Other Symptoms Throat Pain Score (Numeric/FACES): 3 - Related Data Allergies Allergy/AdvReac Type Severity Reaction Status Date / Time No Known Allergies Allergy Verified 06/07/18 00:00 Home Meds: Home Meds DULoxetine [Cymbalta] 60 mg PO DAILY 02/27/16 [History] Furosemide [Lasix] 20 mg PO ASDIRECTED PRN 02/27/16 [History] Gabapentin [Neurontin] 900 mg PO BID 02/27/16 [History] Levothyroxine 88 mcg PO DAILY 02/27/16 [History] Omeprazole 20 mg PO ASDIRECTED PRN 02/27/16 [History] traZODone 200 mg PO BEDTIME 02/27/16 [History] Potassium Chloride [Klor-Con M20] 20 meq PO DAILY PRN 11/22/17 [History] Spironolactone [Aldactone] 25 mg PO DAILY 11/22/17 [History] busPIRone [Buspar] 10 mg PO BID 11/22/17 [History] hydrOXYzine pamoate [Vistaril] 1 - 2 tab PO QID PRN 11/22/17 [History] Acamprosate Calcium 333 mg PO TID 06/06/18 [History] Past Medical History HEENT History: Reports: Cataract, Impaired Vision Cardiovascular History: Reports: Heart Failure, Hypertension 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 Psychiatric History: Reports: Addiction, Anxiety, Depression Endocrine/Metabolic History: Reports: Hypothyroidism - Past Surgical History GI Surgical History: Reports: Hernia, Abdominal Other GI Surgeries/Procedures: cesia bro Female Surgical History: Reports: Cervical Conization Musculoskeletal Surgical History: Reports: Shoulder Surgery Social & Family History - Family History Family Medical History: Noncontributory - Tobacco Use Smoking Status *Q: Never Smoker - Caffeine Use Caffeine Use: Reports: Coffee - Alcohol Use Days Per Week of Alcohol Use: 7 Number of Drinks Per Day: 40 Total Drinks Per Week: 280 Date of Last Drink: 06/07/18 - Recreational Drug Use Recreational Drug Use: Yes Drug Use in Last 12 Months: Yes Recreational Drug Type: Reports: Marijuana/Hashish Recreational Drug Use Frequency: Weekly ED ROS GENERAL - Review of Systems Review Of Systems: See Below Constitutional: Denies: Fever Respiratory: Denies: Shortness of Breath Cardiovascular: Denies: Chest Pain GI/Abdominal: Denies: Vomiting Neurological: Denies: Headache - Physical Exam Exam: See Below Exam Limited By: Intoxication General Appearance: Alert, No Apparent Distress, Other (Patient is fairly intoxicated, very sleepy and difficult to get a history from) Respiratory/Chest: No Respiratory Distress Cardiovascular: Regular Rate, Rhythm Neuro Exam (Abbreviated): Slow to Respond, Other (Very intoxicated) Course - Vital Signs Last Recorded V/S: Last Vital Signs Temp 94.6 F L 06/06/18 23:57 Pulse 95 06/06/18 23:57 Resp 16 06/06/18 23:57 BP 139/84 06/06/18 23:57 Pulse Ox 90 L 06/06/18 23:57 - Orders/Labs/Meds Labs: Laboratory Tests 06/07/18 Range/Units 00:25 Ethyl Alcohol 250 mg/dL - Re-Assessments/Exams Free Text/Narrative Re-Assessment/Exam: 06/07/18 01:02 EtOH is 0.250. Unfortunately [facility] no female beds available. She has no way to get home, her boyfriend doesn't drive. She'll be able to rest here tonight and [facility] may have a bed opening in the morning, if not she'll have to find a way home. 06/07/18 06:48 Patient slept all night, stable. Did get up wants to go to the bathroom and seemed much more coherent. [facility] may have a bed opening up this morning. Care is turned over to Dr. Boyd pending discharge. Departure - Departure Disposition: Home, Self-Care 01 Clinical Impression: Alcohol abuse - Discharge Information Referrals: PCP,Brina [Primary Care Provider] - Forms: ED Department Discharge Additional Instructions: Recommend stop using alcohol, Please followup with your primary care provider in 3-5 days if not better, please call return to the emergency department with worsening of symptoms. <Lukasz Boyd - Last Filed: 06/07/18 08:34> Departure - Departure Time of Disposition: 08:34 Condition: Poor - Assessment/Plan Plan: Assessment Acuity = acute on chronic Site and laterality = alcohol abuse and intoxication Etiology = EtOH Manifestations = none Location of injury = Home Lab values = alcohol level is 250 Plan She declined further help or treatment to go to detoxification prefer to be discharged home recommend refrain from alcohol follow-up with primary care as needed This note was dictated using [employer] voice recognition software please call with any questions on syntax or grammar.
[2018-06-07] MEDS ORDERED: Ibuprofen 600 MG Tab PO ONE (09:58)
== END 2018-06-07 11:13 | disposition home or self-care (01) ==
LOC: JP.ED 23:54
DX: F10.129 Alcohol abuse with intoxication, unspecified (principal); F41.9 Anxiety disorder, unspecified; F32.9 Major depressive disorder, single episode, unspecified; Y90.8 Blood alcohol level of 240 mg/100 ml or more
CPT/HCPCS: 36415; 99284; A9270; G0480

== ENCOUNTER 2018-07-29 20:31 | Emergency (ER) | payer BC, MEDICARE ==
[2018-07-29 20:39] VITALS: BP 142/78
--- NOTE | 2018-07-29 21:30 | EDM.PDOCBH ---
ED HPI GENERAL MEDICAL PROBLEM - General Chief Complaint: Drug or Alcohol Abuse Stated Complaint: MEDICAL VIA [facility] Time Seen by Provider: 07/29/18 20:50 Source of Information: Reports: Patient, EMS History Limitations: Reports: Intoxication - History of Present Illness INITIAL COMMENTS - FREE TEXT/NARRATIVE: 68-year-old chronic alcoholic is drinking again, brought in by ambulance requesting detox at [facility]. She has no pain or significant nausea or vomiting. Onset: Unknown/Unsure Associated Symptoms: Reports: No Other Symptoms - Related Data Allergies Allergy/AdvReac Type Severity Reaction Status Date / Time No Known Allergies Allergy Verified 07/29/18 20:39 Home Meds: Home Meds DULoxetine [Cymbalta] 60 mg PO DAILY 02/27/16 [History] Furosemide [Lasix] 20 mg PO ASDIRECTED PRN 02/27/16 [History] Gabapentin [Neurontin] 900 mg PO BID 02/27/16 [History] Levothyroxine 88 mcg PO DAILY 02/27/16 [History] Omeprazole 20 mg PO ASDIRECTED PRN 02/27/16 [History] traZODone 200 mg PO BEDTIME 02/27/16 [History] Potassium Chloride [Klor-Con M20] 20 meq PO DAILY PRN 11/22/17 [History] Spironolactone [Aldactone] 25 mg PO DAILY 11/22/17 [History] busPIRone [Buspar] 10 mg PO BID 11/22/17 [History] Metoprolol Succinate 1 tab PO 07/29/18 [History] Past Medical History HEENT History: Reports: Cataract, Impaired Vision Cardiovascular History: Reports: Heart Failure, Hypertension 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 Psychiatric History: Reports: Addiction, Anxiety, Depression Endocrine/Metabolic History: Reports: Hypothyroidism - Past Surgical History GI Surgical History: Reports: Hernia, Abdominal Other GI Surgeries/Procedures: tummy tuck Female Surgical History: Reports: Cervical Conization Musculoskeletal Surgical History: Reports: Shoulder Surgery Social & Family History - Family History Family Medical History: Noncontributory - Tobacco Use Smoking Status *Q: Never Smoker - Caffeine Use Caffeine Use: Reports: Coffee ED ROS GENERAL - Review of Systems Review Of Systems: See Below Constitutional: Denies: Fever, Chills Respiratory: Denies: Shortness of Breath Cardiovascular: Denies: Chest Pain GI/Abdominal: Denies: Abdominal Pain, Nausea, Vomiting Skin: Reports: No Symptoms. Denies: Bruising Neurological: Denies: Headache ED EXAM, BEHAVIORAL HEALTH - Physical Exam Exam: See Below Exam Limited By: Intoxication General Appearance: Alert, No Apparent Distress Eye Exam: Bilateral Eye: EOMI (No jaundice) Respiratory/Chest: No Respiratory Distress, Lungs Clear Cardiovascular: Regular Rate, Rhythm GI/Abdominal: Non-Tender Neurological: Alert Psychiatric: No: Depressed Mood, Flat Affect Skin Exam: Warm, Dry COURSE, BEHAVIORAL HEALTH COMP - Course Vital Signs: Last Vital Signs Temp 94.8 F L 07/29/18 20:46 Pulse 84 07/29/18 20:46 Resp 16 07/29/18 20:46 BP 142/78 H 07/29/18 20:46 Pulse Ox 96 07/29/18 20:46 Orders, Labs, Meds: Laboratory Tests 07/29/18 07/29/18 07/29/18 Range/Units 20:52 20:52 20:52 WBC 6.8 (4.5-11.0) K/uL RBC 4.71 (3.30-5.50) M/uL Hgb 14.8 (12.0-15.0) g/dL Hct 44.2 (36.0-48.0) % MCV 94 (80-98) fL MCH 31 (27-31) pg MCHC 34 (32-36) % Plt Count 229 (150-400) K/uL Neut % (Auto) 40 (36-66) % Lymph % (Auto) 50 H (24-44) % [place] % (Auto) 7 H (2-6) % Eos % (Auto) 3 (2-4) % Baso % (Auto) 0 (0-1) % Sodium 140 (140-148) mmol/L Potassium 4.3 (3.6-5.2) mmol/L Chloride 102 (100-108) mmol/L Carbon Dioxide 30 (21-32) mmol/L Anion Gap 8.2 (5.0-14.0) mmol/L BUN 10 (7-18) mg/dL Creatinine 0.7 (0.6-1.0) mg/dL Est Cr Clr Drug Dosing 71.14 mL/min Estimated GFR (MDRD) > 60 (>60) Glucose 84 (74-106) mg/dL Calcium 8.9 (8.5-10.1) mg/dL Ethyl Alcohol 231 mg/dL Re-Assessment/Re-Exam: CBC and CMP are normal, EtOH was 0.324. She is accepted to [facility] and transferred. Departure - Departure Time of Disposition: 21:44 Disposition: DC/Tfer to Other Condition: Fair Clinical Impression: Alcohol abuse Alcohol intoxication Qualifiers: Complication of substance-induced condition: uncomplicated Qualified Code(s): F10.920 - Alcohol use, unspecified with intoxication, uncomplicated - Discharge Information Instructions: Alcohol Intoxication, [id number] Referrals: PCP,None [Primary Care Provider] - Forms: ED Department Discharge Care Plan Goals: Patient will be transferred to [facility] for detoxification.
== END 2018-07-29 21:44 | disposition other institution (70) ==
LOC: JP.ED 20:31
DX: F10.120 Alcohol abuse with intoxication, uncomplicated (principal); Y90.7 Blood alcohol level of 200-239 mg/100 ml; I11.0 Hypertensive heart disease with heart failure; I50.9 Heart failure, unspecified; F41.9 Anxiety disorder, unspecified; F32.9 Major depressive disorder, single episode, unspecified; Z79.899 Other long term (current) drug therapy
CPT/HCPCS: 36415; 80048; 85025; 99284; G0480

== ENCOUNTER 2018-09-03 21:26 | Emergency (ER) | payer MEDICARE, BC ==
--- NOTE | 2018-09-03 21:39 | EDM.PDOC ---
<Omar Reynolds G - Last Filed: 09/03/18 23:30> ED HPI GENERAL MEDICAL PROBLEM - General Chief Complaint: Drug or Alcohol Abuse Stated Complaint: medical Time Seen by Provider: 09/03/18 22:00 Source of Information: Reports: Patient, EMS, Old Records History Limitations: Reports: No Limitations - History of Present Illness INITIAL COMMENTS - FREE TEXT/NARRATIVE: 68 yo female alcoholic comes in from her home via EMS requesting detox at [place]. Wants alcohol rehab. Has done both detox and rehab several times. Developed some chest pain in the ambulance that completely resolved with NTG SL x 1. She does not have a hx of CAD, but says she has CHF for over 5 yrs. She had her thyroid level checked within the past 6 mos. She has never smoked and denies lung dz, but thinks she may have sleep apnea. She does not feel that she has worse SOB than usual currently. Onset: Unknown/Unsure (recurrent) Duration: Chronic (alcoholism), Recurring Location: Reports: Generalized Quality: Reports: Dull (chest pain, now gone) Severity: Mild Improves with: Reports: Medication (NTG) Worsens with: Reports: Other (unknown) Context: Reports: Other (See HPI) Associated Symptoms: Reports: Other (alcohol intoxication) Treatments CLAMP REMOVER: Reports: Nitroglycerin (x one dose ) - Related Data Allergies Allergy/AdvReac Type Severity Reaction Status Date / Time No Known Allergies Allergy Verified 09/03/18 21:39 Home Meds: Home Meds DULoxetine [Cymbalta] 60 mg PO DAILY 02/27/16 [History] Furosemide [Lasix] 20 mg PO ASDIRECTED PRN 02/27/16 [History] Gabapentin [Neurontin] 900 mg PO BID 02/27/16 [History] Levothyroxine 88 mcg PO DAILY 02/27/16 [History] Omeprazole 20 mg PO DAILY 02/27/16 [History] traZODone 200 mg PO BEDTIME 02/27/16 [History] Potassium Chloride [Klor-Con M20] 20 meq PO DAILY PRN 11/22/17 [History] Spironolactone [Aldactone] 25 mg PO DAILY 11/22/17 [History] busPIRone [Buspar] 20 mg PO BID 11/22/17 [History] Metoprolol Succinate 25 mg PO DAILY 07/29/18 [History] Cholecalciferol (Vitamin D3) [Vitamin D3] 1,000 unit PO DAILY 08/22/18 [History] FA/Lycopene/Lut/MV,Ca,Iron,Min [Centrum] 1 tab PO DAILY 08/22/18 [History] Gluc 2KCl/Chondr/Maggi Hy/Hy Ac [Glucosamine & Chondroitin Cap] 1 tab PO DAILY [History] L.acidoph,Paracasei, B.lactis [Probiotic] 1 tab PO DAILY 08/22/18 [History] Milk Thistle 150 mg PO DAILY 08/22/18 [History] Multivitamin with Minerals [Hair, Skin and Nails] 1 tab PO DAILY 08/22/18 [ History] Turmeric 400 mg PO DAILY 08/22/18 [History] Ubidecarenone/[place]-3/Vit E [Co Q-10-Vit E-Fish Oil Sfgl] 1 tab PO DAILY [History] Vitamin B Complex [B Complex] 1 each PO DAILY 08/22/18 [History] Past Medical History HEENT History: Reports: Cataract, Impaired Vision Cardiovascular History: Reports: Heart Failure, Hypertension Respiratory History: Reports: None Gastrointestinal History: Reports: None Genitourinary History: Reports: None 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 Psychiatric History: Reports: Addiction, Anxiety, Depression Endocrine/Metabolic History: Reports: Hypothyroidism Hematologic History: Reports: None Immunologic History: Reports: None Oncologic (Cancer) History: Reports: None Dermatologic History: Reports: None - Past Surgical History Head Surgeries/Procedures: Reports: None Cardiovascular Surgical History: Reports: None GI Surgical History: Reports: Hernia, Abdominal Other GI Surgeries/Procedures: tummy tuck Female Surgical History: Reports: Cervical Conization Musculoskeletal Surgical History: Reports: Shoulder Surgery Social & Family History - Family History Family Medical History: Noncontributory - Caffeine Use Caffeine Use: Reports: Coffee ED ROS GENERAL - Review of Systems Review Of Systems: See Below Constitutional: Reports: No Symptoms HEENT: Reports: Other (dry mouth) Respiratory: Reports: Shortness of Breath (mild chronic) Cardiovascular: Reports: Chest Pain (now gone) Endocrine: Reports: No Symptoms, Polyuria : Reports: No Symptoms Musculoskeletal: Reports: No Symptoms Skin: Reports: No Symptoms Neurological: Reports: No Symptoms Psychiatric: Reports: Other (intoxication) - Physical Exam Exam: See Below Exam Limited By: Intoxication General Appearance: Alert, WD/WN, No Apparent Distress Eye Exam: Bilateral Eye: Normal Inspection Ears: Normal External Exam, Normal Canal, Hearing Grossly Normal, Normal TMs Nose: Normal Inspection, Normal Mucosa, No Blood Throat/Mouth: Normal Inspection, Normal Oropharynx, Normal Voice, No Airway Compromise, Other (dry lips and oral mucosa) Head Exam: Atraumatic, Normocephalic Neck: Normal Inspection, Non-Tender Respiratory/Chest: No Respiratory Distress, Lungs Clear, Normal Breath Sounds, No Accessory Muscle Use Cardiovascular: Regular Rate, Rhythm, No Edema GI/Abdominal: Normal Bowel Sounds, Soft, Non-Tender, No Distention Neuro Exam (Abbreviated): Alert, Oriented, CN II-XII Intact, Normal Cognition, No Motor/Sensory Deficits, Other (alcohol intoxication) Back Exam: Normal Inspection. No: CVA Tenderness (R), CVA Tenderness (L) Extremities: Normal Inspection, Normal Range of Motion, Non-Tender, No Pedal Edema Psychiatric: Normal Affect, Normal Mood Skin Exam: Warm, Dry, Intact, Normal Color, No Rash EKG INTERPRETATION EKG Date: 09/03/18 Time: 21:45 Rhythm: NSR Rate (Beats/Min): 80 [place]: Normal P-Wave: Present QRS: Normal ST-T: Normal QT: Normal Comparison: NA - No Prior EKG (Old Q's in III, and AVF) Course - Vital Signs Last Recorded V/S: Last Vital Signs Temp 98.4 F 09/03/18 22:08 Pulse 75 09/04/18 06:10 Resp 12 09/03/18 23:01 BP 122/65 09/04/18 06:10 Pulse Ox 96 09/04/18 06:10 - Orders/Labs/Meds Orders: Active Orders 24 hr Category Date Time Status EKG Documentation Completion [RC] ASDIRECTED Care 09/03/18 21:31 Active EKG 12 Lead [EK] Routine Ther 09/03/18 21:31 Ordered Labs: Laboratory Tests 09/03/18 09/03/18 09/03/18 Range/Units 22:07 22:07 22:07 D-Dimer, Quantitative (0.0-400.0) ng/mL Sodium 144 (140-148) mmol/L Potassium 4.1 (3.6-5.2) mmol/L Chloride 104 (100-108) mmol/L Carbon Dioxide 30 (21-32) mmol/L Anion Gap 10.1 (5.0-14.0) mmol/L BUN 11 (7-18) mg/dL Creatinine 0.8 (0.6-1.0) mg/dL Est Cr Clr Drug Dosing 59.73 mL/min Estimated GFR (MDRD) > 60 (>60) Glucose 98 (74-106) mg/dL Calcium 8.7 (8.5-10.1) mg/dL Troponin I < 0.017 (0.000-0.056) ng/mL Urine Color Urine Appearance Urine pH (4.5-8.0) Ur Specific [place] (1.008-1.030) Urine Protein (NEGATIVE) mg/dL Urine Glucose (UA) (NEGATIVE) mg/dL Urine Ketones (NEGATIVE) mg/dL Urine Occult Blood (NEGATIVE) Urine Nitrite (NEGATIVE) Urine Bilirubin (NEGATIVE) Urine Urobilinogen (NORMAL) mg/dL Ur Leukocyte Esterase (NEGATIVE) Urine RBC (0-5) Urine WBC (0-5) Ur Epithelial Cells Amorphous Sediment Urine Bacteria Urine Mucus Urine Opiates Screen (NEGATIVE) Ur Oxycodone Screen (NEGATIVE) Urine Methadone Screen (NEGATIVE) Ur Propoxyphene Screen (NEGATIVE) Ur Barbiturates Screen (NEGATIVE) Ur Tricyclics Screen (NEGATIVE) Ur Phencyclidine Scrn (NEGATIVE) Ur Amphetamine Screen (NEGATIVE) U Methamphetamines Scrn (NEGATIVE) Urine MDMA Screen (NEGATIVE) U Benzodiazepines Scrn (NEGATIVE) U Cocaine Metab Screen (NEGATIVE) U Marijuana (THC) Screen (NEGATIVE) Ethyl Alcohol 310 mg/dL 09/03/18 09/03/18 09/03/18 Range/Units 22:08 23:12 23:12 D-Dimer, Quantitative 171 (0.0-400.0) ng/mL Sodium (140-148) mmol/L Potassium (3.6-5.2) mmol/L Chloride (100-108) mmol/L Carbon Dioxide (21-32) mmol/L Anion Gap (5.0-14.0) mmol/L BUN (7-18) mg/dL Creatinine (0.6-1.0) mg/dL Est Cr Clr Drug Dosing mL/min Estimated GFR (MDRD) (>60) Glucose (74-106) mg/dL Calcium (8.5-10.1) mg/dL Troponin I (0.000-0.056) ng/mL Urine Color Yellow Urine Appearance Clear Urine pH 5.0 (4.5-8.0) Ur Specific [place] 1.010 (1.008-1.030) Urine Protein Negative (NEGATIVE) mg/dL Urine Glucose (UA) Normal (NEGATIVE) mg/dL Urine Ketones Negative (NEGATIVE) mg/dL Urine Occult Blood Negative (NEGATIVE) Urine Nitrite Negative (NEGATIVE) Urine Bilirubin Negative (NEGATIVE) Urine Urobilinogen Normal (NORMAL) mg/dL Ur Leukocyte Esterase Negative (NEGATIVE) Urine RBC 0-5 (0-5) Urine WBC 0-5 (0-5) Ur Epithelial Cells Few Amorphous Sediment Not seen Urine Bacteria Few Urine Mucus Not seen Urine Opiates Screen Negative (NEGATIVE) Ur Oxycodone Screen Negative (NEGATIVE) Urine Methadone Screen Negative (NEGATIVE) Ur Propoxyphene Screen Negative (NEGATIVE) Ur Barbiturates Screen Negative (NEGATIVE) Ur Tricyclics Screen Presumptive positive H (NEGATIVE) Ur Phencyclidine Scrn Negative (NEGATIVE) Ur Amphetamine Screen Negative (NEGATIVE) U Methamphetamines Scrn Negative (NEGATIVE) Urine MDMA Screen Negative (NEGATIVE) U Benzodiazepines Scrn Presumptive positive H (NEGATIVE) U Cocaine Metab Screen Negative (NEGATIVE) U Marijuana (THC) Screen Negative (NEGATIVE) Ethyl Alcohol mg/dL Meds: Medications Discontinued Medications Generic Name Dose Route Start Last Admin Trade Name Freq PRN Reason Stop Dose Admin Diazepam 5 mg 09/04/18 07:46 09/04/18 07:51 Valium. PO 09/04/18 07:47 5 mg ONETIME ONE Administration - Radiology Interpretation Free Text/Narrative:: CXR-negative Departure - Departure Disposition: Home, Self-Care 01 Condition: Fair Clinical Impression: Alcoholism Alcohol intoxication Qualifiers: Complication of substance-induced condition: uncomplicated Qualified Code(s): F10.920 - Alcohol use, unspecified with intoxication, uncomplicated - Discharge Information *PRESCRIPTION DRUG MONITORING PROGRAM REVIEWED*: No *COPY OF PRESCRIPTION DRUG MONITORING REPORT IN PATIENT SYEDA: No Instructions: Alcohol Use Disorder Referrals: PCP,None [Primary Care Provider] - Forms: ED Department Discharge Additional Instructions: Recommend refraining from alcohol, Please followup with your primary care provider in 3-5 days if not better, please call return to the emergency department with worsening of symptoms. <OfficerLukasz - Last Filed: 09/04/18 10:27> Departure - Departure Time of Disposition: 10:27 Condition: Poor - Assessment/Plan Plan: Took over care from Dr. Teran at 7 AM Assessment Acuity = acute Site and laterality = alcohol abuse and dependence Etiology = EtOH] Manifestations = none Location of injury = Home Lab values = alcohol is at 350, CBC, CMP, urinalysis unremarkable Plan She was offered treatment a bed was available however she declined she is going to go home with family member This note was dictated using [employer] voice recognition software please call with any questions on syntax or grammar.
--- NOTE | 2018-09-03 23:40 | CRLCR ---
Indication: Mild hypoxia Technique: Chest 2 views Comparison: None Findings: Cardiovascular and mediastinum: Normal heart size with aortic tortuosity. Lungs and pleural spaces: Lungs are clear. No sign of infiltrate or mass. No sign of pleural effusion. No pneumothorax. Bones and soft tissues: Status post cervical spine surgery. Status post distal right clavicular resection. Old T12 compression fracture. Impression: No acute cardiopulmonary abnormality. Dictated by Ivan Campbell MD @ Sep 03 2018 11:36PM Signed by Dr. Ivan Campbell @ Sep 03 2018 11:39PM
[2018-09-04 06:10] VITALS: BP 122/65
[2018-09-04] MEDS ORDERED: Diazepam 5 MG Tab PO ONE (07:46)
== END 2018-09-04 10:33 | disposition home or self-care (01) ==
LOC: JP.ED 21:26
DX: F10.20 Alcohol dependence, uncomplicated (principal); Y90.8 Blood alcohol level of 240 mg/100 ml or more; I11.0 Hypertensive heart disease with heart failure; I50.9 Heart failure, unspecified; F41.9 Anxiety disorder, unspecified; F32.9 Major depressive disorder, single episode, unspecified; E03.9 Hypothyroidism, unspecified; Z79.899 Other long term (current) drug therapy
CPT/HCPCS: 36415; 71046; 80048; 80305; 81001; 84484; 85379; 93005; 99284; A9270; G0480

== ENCOUNTER 2018-09-09 17:50 | Emergency (ER) | payer MEDICARE, BC ==
[2018-09-09 18:15] VITALS: BP 179/71
[2018-09-09] MEDS ORDERED: LORazepam 1 MG Tab PO ONE (19:06)
--- NOTE | 2018-09-09 19:47 | EDM.PDOCBH ---
ED HPI GENERAL MEDICAL PROBLEM - General Chief Complaint: Drug or Alcohol Abuse Stated Complaint: DETOX Time Seen by Provider: 09/09/18 19:30 Source of Information: Reports: Patient History Limitations: Reports: No Limitations - History of Present Illness INITIAL COMMENTS - FREE TEXT/NARRATIVE: 69-year-old female has a history of chronic alcoholism. She is seeking admission to [facility]. This is voluntary. She has been instructed to come to the emergency room to have an alcohol level done prior to transfer. She has been drinking alcohol today and her last drink was about an hour ago. She does not appear intoxicated at this time. She does complain of little bit of withdrawal and is feeling shaky. She does have a history of alcohol withdrawal seizures in the past. She has no other physical complaints at this time. Denies any drug abuse. Lower Back Pain Score (Numeric/FACES): 5 - Related Data Allergies Allergy/AdvReac Type Severity Reaction Status Date / Time No Known Allergies Allergy Verified 09/09/18 18:23 Home Meds: Home Meds DULoxetine [Cymbalta] 60 mg PO DAILY 02/27/16 [History] Furosemide [Lasix] 20 mg PO ASDIRECTED PRN 02/27/16 [History] Gabapentin [Neurontin] 900 mg PO BID 02/27/16 [History] Levothyroxine 88 mcg PO DAILY 02/27/16 [History] Omeprazole 20 mg PO DAILY 02/27/16 [History] traZODone 200 mg PO BEDTIME 02/27/16 [History] Potassium Chloride [Klor-Con M20] 20 meq PO DAILY PRN 11/22/17 [History] Spironolactone [Aldactone] 25 mg PO DAILY 11/22/17 [History] busPIRone [Buspar] 20 mg PO BID 11/22/17 [History] Metoprolol Succinate 25 mg PO DAILY 07/29/18 [History] Cholecalciferol (Vitamin D3) [Vitamin D3] 1,000 unit PO DAILY 08/22/18 [History] FA/Lycopene/Lut/MV,Ca,Iron,Min [Centrum] 1 tab PO DAILY 08/22/18 [History] Gluc 2KCl/Chondr/Maggi Hy/Hy Ac [Glucosamine & Chondroitin Cap] 1 tab PO DAILY [History] L.acidoph,Paracasei, B.lactis [Probiotic] 1 tab PO DAILY 08/22/18 [History] Milk Thistle 150 mg PO DAILY 08/22/18 [History] Multivitamin with Minerals [Hair, Skin and Nails] 1 tab PO DAILY 08/22/18 [ History] Turmeric 400 mg PO DAILY 08/22/18 [History] Ubidecarenone/[facility]-3/Vit E [Co Q-10-Vit E-Fish Oil Sfgl] 1 tab PO DAILY [History] Vitamin B Complex [B Complex] 1 each PO DAILY 08/22/18 [History] Past Medical History HEENT History: Reports: Cataract, Impaired Vision Cardiovascular History: Reports: Heart Failure, Hypertension Respiratory History: Reports: None Gastrointestinal History: Reports: None Genitourinary History: Reports: None 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, Musculoskeletal History: Reports: Back Pain, Chronic, Fibromyalgia, Neck Pain, Chronic Other Musculoskeletal History: torn rotator cuff Neurological History: Reports: Concussion, Seizure, Other (See Below) Other Neuro History: 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 Psychiatric History: Reports: Addiction, Anxiety, Depression, Panic Attack, PTSD Endocrine/Metabolic History: Reports: Hypothyroidism, Obesity/BMI 30+ Hematologic History: Reports: None Immunologic History: Reports: None Oncologic (Cancer) History: Reports: None Dermatologic History: Reports: None - Past Surgical History Head Surgeries/Procedures: Reports: None HEENT Surgical History: Reports: Cataract Surgery Cardiovascular Surgical History: Reports: None GI Surgical History: Reports: Hernia, Abdominal Other GI Surgeries/Procedures: tummy tuck Female Surgical History: Reports: Cervical Conization Endocrine Surgical History: Reports: None Neurological Surgical History: Reports: Spinal Fusion Musculoskeletal Surgical History: Reports: Shoulder Surgery Dermatological Surgical History: Reports: None Social & Family History - Family History Family Medical History: Noncontributory - Tobacco Use Smoking Status *Q: Never Smoker Second Hand Smoke Exposure: No - Caffeine Use Caffeine Use: Reports: Coffee, Soda - Alcohol Use Days Per Week of Alcohol Use: 7 Number of Drinks Per Day: 1 Total Drinks Per Week: 7 - Recreational Drug Use Recreational Drug Use: Yes Drug Use in Last 12 Months: No ED ROS GENERAL - Review of Systems Review Of Systems: See Below Constitutional: Denies: Fever, Chills, Weakness HEENT: Reports: No Symptoms Respiratory: Reports: No Symptoms Cardiovascular: Reports: No Symptoms GI/Abdominal: Reports: Nausea. Denies: Abdominal Pain, Vomiting : Reports: No Symptoms Psychiatric: Reports: No Symptoms ED EXAM, BEHAVIORAL HEALTH - Physical Exam Exam: See Below Exam Limited By: No Limitations General Appearance: Alert, No Apparent Distress Ears: Normal External Exam Nose: Normal Inspection Throat/Mouth: Normal Inspection Neck: Normal Inspection Respiratory/Chest: No Respiratory Distress, Lungs Clear, Normal Breath Sounds Cardiovascular: Normal Peripheral Pulses, Regular Rate, Rhythm Neurological: Alert, Normal Mood/Affect, Normal Cognition, Other (Mild shakiness.) Psychiatric: Alert, Normal Cognition COURSE, BEHAVIORAL HEALTH COMP - Course Vital Signs: Last Vital Signs Temp 35.9 C 09/09/18 18:26 Pulse 92 09/09/18 18:26 Resp 16 09/09/18 18:26 BP 179/71 H 09/09/18 18:26 Pulse Ox 94 L 09/09/18 18:26 Orders, Labs, Meds: Laboratory Tests 09/09/18 Range/Units 18:51 Ethyl Alcohol 163 mg/dL Medications Discontinued Medications Generic Name Dose Route Start Last Admin Trade Name Anu PRN Reason Stop Dose Admin Lorazepam 1 mg 09/09/18 19:06 09/09/18 19:19 Ativan PO 09/09/18 19:07 1 mg ONETIME ONE Administration Re-Assessment/Re-Exam: She was given 1 mg of Ativan by mouth for her shakiness caused by withdrawal. Departure - Departure Time of Disposition: 22:50 Disposition: DC/Tfer to [facility]/Unit 65 Condition: Good Clinical Impression: Desire for detoxification - Discharge Information *PRESCRIPTION DRUG MONITORING PROGRAM REVIEWED*: No *COPY OF PRESCRIPTION DRUG MONITORING REPORT IN PATIENT SYEDA: No Instructions: Alcohol Use Disorder Referrals: Van Perez MD [Primary Care Provider] - Forms: ED Department Discharge Care Plan Goals: Patient will be transferred to [place] at this time. - Problem List & Annotations (1) Desire for detoxification SNOMED Code(s): 271712222 Code(s): CYG5552 - Status: Acute
== END 2018-09-09 22:51 ==
LOC: JP.ED 17:50
DX: F10.239 Alcohol dependence with withdrawal, unspecified (principal); I11.0 Hypertensive heart disease with heart failure; I50.9 Heart failure, unspecified; E66.9 Obesity, unspecified; Z79.899 Other long term (current) drug therapy; Z98.49 Cataract extraction status, unspecified eye; Y90.6 Blood alcohol level of 120-199 mg/100 ml
CPT/HCPCS: 36415; 99285; A9270; G0480

== ENCOUNTER 2018-09-23 12:44 | Emergency (ER) | payer BC, MEDICARE ==
[2018-09-23 13:18] VITALS: BP 147/91
--- NOTE | 2018-09-23 13:38 | EDM.PDOC ---
ED HPI GENERAL MEDICAL PROBLEM - General Chief Complaint: Drug or Alcohol Abuse Stated Complaint: EVAL-DETOX Time Seen by Provider: 09/23/18 13:15 Source of Information: Reports: Patient, Family, RN Notes Reviewed History Limitations: Reports: Intoxication - History of Present Illness INITIAL COMMENTS - FREE TEXT/NARRATIVE: Juanis presents today with request to go to [facility] for detox. She denies fever, chills, nausea, vomiting, recent injury, trauma, falling or other drug use. - Related Data Allergies Allergy/AdvReac Type Severity Reaction Status Date / Time No Known Allergies Allergy Verified 09/23/18 13:05 Home Meds: Home Meds DULoxetine [Cymbalta] 60 mg PO DAILY 02/27/16 [History] Furosemide [Lasix] 20 mg PO ASDIRECTED PRN 02/27/16 [History] Gabapentin [Neurontin] 900 mg PO BID 02/27/16 [History] Levothyroxine 88 mcg PO DAILY 02/27/16 [History] Omeprazole 20 mg PO DAILY 02/27/16 [History] traZODone 200 mg PO BEDTIME 02/27/16 [History] Potassium Chloride [Klor-Con M20] 20 meq PO DAILY PRN 11/22/17 [History] Spironolactone [Aldactone] 25 mg PO DAILY 11/22/17 [History] busPIRone [Buspar] 20 mg PO BID 11/22/17 [History] Metoprolol Succinate 25 mg PO DAILY 07/29/18 [History] Cholecalciferol (Vitamin D3) [Vitamin D3] 1,000 unit PO DAILY 08/22/18 [History] FA/Lycopene/Lut/MV,Ca,Iron,Min [Centrum] 1 tab PO DAILY 08/22/18 [History] Gluc 2KCl/Chondr/Maggi Hy/Hy Ac [Glucosamine & Chondroitin Cap] 1 tab PO DAILY [History] L.acidoph,Paracasei, B.lactis [Probiotic] 1 tab PO DAILY 08/22/18 [History] Milk Thistle 150 mg PO DAILY 08/22/18 [History] Multivitamin with Minerals [Hair, Skin and Nails] 1 tab PO DAILY 08/22/18 [ History] Turmeric 400 mg PO DAILY 08/22/18 [History] Ubidecarenone/[place]-3/Vit E [Co Q-10-Vit E-Fish Oil Sfgl] 1 tab PO DAILY [History] Vitamin B Complex [B Complex] 1 each PO DAILY 08/22/18 [History] Past Medical History HEENT History: Reports: Cataract, Impaired Vision Cardiovascular History: Reports: Heart Failure, Hypertension Respiratory History: Reports: None Gastrointestinal History: Reports: None Genitourinary History: Reports: None 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: Reports: None, Musculoskeletal History: Reports: Back Pain, Chronic, Fibromyalgia, Neck Pain, Chronic Other Musculoskeletal History: torn rotator cuff Neurological History: Reports: Concussion, Seizure, Other (See Below) Other Neuro History: 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 Psychiatric History: Reports: Addiction, Anxiety, Depression, Panic Attack, PTSD Endocrine/Metabolic History: Reports: Hypothyroidism, Obesity/BMI 30+ Hematologic History: Reports: None Immunologic History: Reports: None Oncologic (Cancer) History: Reports: None Dermatologic History: Reports: None - Past Surgical History Head Surgeries/Procedures: Reports: None HEENT Surgical History: Reports: Cataract Surgery Cardiovascular Surgical History: Reports: None GI Surgical History: Reports: Hernia, Abdominal Other GI Surgeries/Procedures: tummy tuck Female Surgical History: Reports: Cervical Conization Endocrine Surgical History: Reports: None Neurological Surgical History: Reports: Spinal Fusion Musculoskeletal Surgical History: Reports: Shoulder Surgery Oncologic Surgical History: Reports: None Dermatological Surgical History: Reports: None Social & Family History - Family History Family Medical History: Noncontributory - Tobacco Use Smoking Status *Q: Never Smoker Second Hand Smoke Exposure: No - Caffeine Use Caffeine Use: Reports: Soda - Alcohol Use Days Per Week of Alcohol Use: 7 Number of Drinks Per Day: 1 Total Drinks Per Week: 7 - Recreational Drug Use Recreational Drug Use: No ED ROS GENERAL - Review of Systems Review Of Systems: See Below Constitutional: Reports: No Symptoms HEENT: Reports: No Symptoms Respiratory: Reports: No Symptoms Cardiovascular: Reports: No Symptoms Endocrine: Reports: No Symptoms GI/Abdominal: Reports: No Symptoms : Reports: No Symptoms Musculoskeletal: Reports: No Symptoms Skin: Reports: No Symptoms Neurological: Reports: Other (intoxicated). Denies: Confusion, Dizziness, Headache, Numbness, Tingling, Difficulty Walking, Weakness, Gait Disturbance Psychiatric: Reports: No Symptoms Hematologic/Lymphatic: Reports: No Symptoms Immunologic: Reports: No Symptoms ED EXAM, GENERAL - Physical Exam Exam: See Below Exam Limited By: Intoxication General Appearance: Alert, WD/WN, No Apparent Distress Eye Exam: Bilateral Eye: EOMI, Normal Inspection, PERRL Ears: Normal External Exam, Normal Canal, Hearing Grossly Normal, Normal TMs Ear Exam: Bilateral Ear: Auricle Normal, Canal Normal, TM normal Nose: Normal Inspection, Normal Mucosa, No Blood Throat/Mouth: Normal Inspection, Normal Lips, Normal Teeth, Normal Gums, Normal Oropharynx, Normal Voice, No Airway Compromise Head: Atraumatic, Normocephalic Neck: Normal Inspection, Supple, Non-Tender, Full Range of Motion. No: Lymphadenopathy (R), Lymphadenopathy (L) Respiratory/Chest: No Respiratory Distress, Lungs Clear, Normal Breath Sounds, No Accessory Muscle Use, Chest Non-Tender Cardiovascular: Normal Peripheral Pulses, Regular Rate, Rhythm, No Edema, No Gallop, No Murmur, No Rub Peripheral Pulses: 2+: Radial (L), Radial (R) GI/Abdominal: Normal Bowel Sounds, Soft, Non-Tender, No Organomegaly, No Distention, No Mass Back Exam: Normal Inspection, Full Range of Motion. No: CVA Tenderness (R), CVA Tenderness (L) Extremities: Normal Inspection, Normal Range of Motion, Non-Tender, No Pedal Edema, Normal Capillary Refill Neurological: Alert, Oriented, Normal Cognition, Normal Gait, No Motor/Sensory Deficits, Other (ETOH on board) Psychiatric: Normal Affect, Normal Mood Skin Exam: Warm, Dry, Intact, Normal Color, No Rash Lymphatic: No Adenopathy Course - Vital Signs Last Recorded V/S: Last Vital Signs Temp 36.2 C 09/23/18 13:22 Pulse 77 09/23/18 13:22 Resp 22 H 09/23/18 13:22 BP 147/91 H 09/23/18 13:22 Pulse Ox 90 L 09/23/18 13:22 - Orders/Labs/Meds Labs: Laboratory Tests 09/23/18 Range/Units 13:01 Ethyl Alcohol 287 mg/dL Patient notified of blood alcohol level, [facility]incon contacted. Patient transferred to [facility]. Departure - Departure Time of Disposition: 13:37 Disposition: Home, Self-Care 01 Condition: Fair Clinical Impression: Alcohol abuse - Discharge Information *PRESCRIPTION DRUG MONITORING PROGRAM REVIEWED*: Not Applicable *COPY OF PRESCRIPTION DRUG MONITORING REPORT IN PATIENT SYEDA: Not Applicable Instructions: Alcohol Use Disorder Referrals: Van Perez MD [Primary Care Provider] - Forms: ED Department Discharge Additional Instructions: Report to [facility] rincon as directed. - Assessment/Plan Assessment:: Alcohol use disorder Plan: Patient evaluated for safety to detox. Blood alcohol under 300. Patient will report to [facility] Rincon as arranged.
== END 2018-09-23 13:45 | disposition home or self-care (01) ==
LOC: JP.ED 12:44
DX: F10.10 Alcohol abuse, uncomplicated (principal); Y90.8 Blood alcohol level of 240 mg/100 ml or more; I11.0 Hypertensive heart disease with heart failure; I50.9 Heart failure, unspecified; F41.9 Anxiety disorder, unspecified; F32.9 Major depressive disorder, single episode, unspecified; E03.9 Hypothyroidism, unspecified; Z79.899 Other long term (current) drug therapy
CPT/HCPCS: 36415; 99284; G0480

== ENCOUNTER 2018-10-13 19:53 | Emergency (ER) | payer MEDICARE ==
[2018-10-13 20:10] VITALS: BP 134/80
--- NOTE | 2018-10-13 20:44 | EDM.PDOCBH ---
ED HPI GENERAL MEDICAL PROBLEM - General Chief Complaint: Drug or Alcohol Abuse Stated Complaint: EVAL Time Seen by Provider: 10/13/18 20:30 Source of Information: Reports: Patient, Old Records, RN History Limitations: Reports: No Limitations - History of Present Illness INITIAL COMMENTS - FREE TEXT/NARRATIVE: 68 yo female presents for medical clearance before going to [facility]. Drinks mostly beer and wine. Has been to detox several times, the last time 3 weeks ago. Denies any fever, bleeding, seizures or dysuria. Has not felt well the last week, but when she drinks it makes her feel better. Can't tell me how much she drank today. Onset: Gradual Duration: Chronic, Waxing/Waning Location: Reports: Generalized Quality: Reports: Other (Some migratory abdominal and R flank pain, has been worked up and nothing found so far. ) Severity: Moderate Improves with: Reports: Other (unknown) Worsens with: Reports: Other (? drinking ETOH) Context: Reports: Other (alcoholism) Associated Symptoms: Reports: Malaise Treatments GANG TAILER: Reports: Other (see below) (none) Lower Back Pain Score (Numeric/FACES): 6 - Related Data Allergies Allergy/AdvReac Type Severity Reaction Status Date / Time No Known Allergies Allergy Verified 09/23/18 13:05 Home Meds: Home Meds DULoxetine [Cymbalta] 60 mg PO DAILY 02/27/16 [History] Furosemide [Lasix] 20 mg PO ASDIRECTED PRN 02/27/16 [History] Gabapentin [Neurontin] 900 mg PO BID 02/27/16 [History] Levothyroxine 88 mcg PO DAILY 02/27/16 [History] Omeprazole 20 mg PO DAILY 02/27/16 [History] traZODone 200 mg PO BEDTIME 02/27/16 [History] Potassium Chloride [Klor-Con M20] 20 meq PO DAILY PRN 11/22/17 [History] Spironolactone [Aldactone] 25 mg PO DAILY 11/22/17 [History] busPIRone [Buspar] 20 mg PO BID 11/22/17 [History] Metoprolol Succinate 25 mg PO DAILY 07/29/18 [History] Cholecalciferol (Vitamin D3) [Vitamin D3] 1,000 unit PO DAILY 08/22/18 [History] FA/Lycopene/Lut/MV,Ca,Iron,Min [Centrum] 1 tab PO DAILY 08/22/18 [History] Gluc 2KCl/Chondr/Maggi Hy/Hy Ac [Glucosamine & Chondroitin Cap] 1 tab PO DAILY [History] L.acidoph,Paracasei, B.lactis [Probiotic] 1 tab PO DAILY 08/22/18 [History] Milk Thistle 150 mg PO DAILY 08/22/18 [History] Multivitamin with Minerals [Hair, Skin and Nails] 1 tab PO DAILY 08/22/18 [ History] Turmeric 400 mg PO DAILY 08/22/18 [History] Ubidecarenone/[place]-3/Vit E [Co Q-10-Vit E-Fish Oil Sfgl] 1 tab PO DAILY [History] Vitamin B Complex [B Complex] 1 each PO DAILY 08/22/18 [History] Past Medical History HEENT History: Reports: Cataract, Impaired Vision Cardiovascular History: Reports: Heart Failure, Hypertension Respiratory History: Reports: None Gastrointestinal History: Reports: None Genitourinary History: Reports: None 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, Musculoskeletal History: Reports: Back Pain, Chronic, Fibromyalgia, Neck Pain, Chronic Other Musculoskeletal History: torn rotator cuff Neurological History: Reports: Concussion, Seizure, Other (See Below) Other Neuro History: 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 Psychiatric History: Reports: Addiction, Anxiety, Depression, Panic Attack, PTSD Endocrine/Metabolic History: Reports: Hypothyroidism, Obesity/BMI 30+ Hematologic History: Reports: None Immunologic History: Reports: None Oncologic (Cancer) History: Reports: None Dermatologic History: Reports: None - Past Surgical History Head Surgeries/Procedures: Reports: None HEENT Surgical History: Reports: Cataract Surgery Cardiovascular Surgical History: Reports: None GI Surgical History: Reports: Hernia, Abdominal Other GI Surgeries/Procedures: tummy tuck Female Surgical History: Reports: Cervical Conization Endocrine Surgical History: Reports: None Neurological Surgical History: Reports: Spinal Fusion Musculoskeletal Surgical History: Reports: Shoulder Surgery Oncologic Surgical History: Reports: None Dermatological Surgical History: Reports: None Social & Family History - Family History Family Medical History: Noncontributory - Tobacco Use Smoking Status *Q: Never Smoker - Caffeine Use Caffeine Use: Reports: Soda Caffeine Use Comment: none lately - Alcohol Use Days Per Week of Alcohol Use: 7 Number of Drinks Per Day: 10 Total Drinks Per Week: 70 Date of Last Drink: 10/13/18 Time of Last Drink: 19:00 - Recreational Drug Use Recreational Drug Use: No ED ROS GENERAL - Review of Systems Review Of Systems: See Below Constitutional: Reports: Malaise HEENT: Reports: No Symptoms Respiratory: Reports: No Symptoms Cardiovascular: Reports: No Symptoms GI/Abdominal: Reports: Abdominal Pain (intermittently). Denies: Black Stool, Constipation, Diarrhea, Hematemesis, Hematochezia, Melena, Nausea, Vomiting : Reports: Flank Pain (R side at times) Musculoskeletal: Reports: No Symptoms Skin: Reports: No Symptoms Neurological: Reports: No Symptoms ED EXAM, BEHAVIORAL HEALTH - Physical Exam Exam: See Below Exam Limited By: No Limitations General Appearance: Alert, WD/WN, No Apparent Distress Eye Exam: Bilateral Eye: EOMI, Nystagmus, PERRL Ears: Normal External Exam, Normal Canal, Hearing Grossly Normal, Normal TMs Nose: Normal Inspection, No Blood Throat/Mouth: Normal Inspection, Normal Lips, Normal Oropharynx, Normal Voice, No Airway Compromise Head: Atraumatic, Normocephalic Neck: Normal Inspection, Non-Tender Respiratory/Chest: No Respiratory Distress, Lungs Clear, Normal Breath Sounds, No Accessory Muscle Use Cardiovascular: Regular Rate, Rhythm, No Edema GI/Abdominal: Normal Bowel Sounds, Soft, Non-Tender, No Distention Back Exam: Normal Inspection. No: CVA Tenderness (R), CVA Tenderness (L) Extremities: Normal Inspection, Normal Range of Motion, Non-Tender, No Pedal Edema Neurological: Alert, Normal Mood/Affect, CN II-XII Intact, Normal Cognition, No Motor/Sensory Deficits, Oriented x 3 Psychiatric: Alert, Normal Affect, Normal Cognition, Normal Mood, Other ( alcohol intoxication) Skin Exam: Warm, Dry, Intact, Normal color, No rash COURSE, BEHAVIORAL HEALTH COMP - Course Vital Signs: Last Vital Signs Temp 35.6 C 10/13/18 20:06 Pulse 94 10/13/18 20:06 Resp 12 10/13/18 20:06 BP 134/80 10/13/18 20:06 Pulse Ox 93 L 10/13/18 20:06 Orders, Labs, Meds: Laboratory Tests 10/13/18 10/13/18 Range/Units 20:45 20:46 Urine Opiates Screen Negative (NEGATIVE) Ur Oxycodone Screen Negative (NEGATIVE) Urine Methadone Screen Negative (NEGATIVE) Ur Propoxyphene Screen Negative (NEGATIVE) Ur Barbiturates Screen Negative (NEGATIVE) Ur Tricyclics Screen Negative (NEGATIVE) Ur Phencyclidine Scrn Negative (NEGATIVE) Ur Amphetamine Screen Negative (NEGATIVE) U Methamphetamines Scrn Negative (NEGATIVE) Urine MDMA Screen Negative (NEGATIVE) U Benzodiazepines Scrn Presumptive positive H (NEGATIVE) U Cocaine Metab Screen Negative (NEGATIVE) U Marijuana (THC) Screen Negative (NEGATIVE) Ethyl Alcohol 253 mg/dL Medical Clearance: 10/13/18 21:13 Accepted by [facility], bed available there starting at 11 pm. Departure - Departure Time of Disposition: 23:00 Disposition: DC/Tfer to Other 70 Condition: Fair Clinical Impression: Alcohol abuse Alcohol intoxication Qualifiers: Complication of substance-induced condition: uncomplicated Qualified Code(s): F10.920 - Alcohol use, unspecified with intoxication, uncomplicated Alcohol dependence Qualifiers: Substance use status: with intoxication Complication of substance-induced condition: uncomplicated Qualified Code(s): F10.220 - Alcohol dependence with intoxication, uncomplicated - Discharge Information *PRESCRIPTION DRUG MONITORING PROGRAM REVIEWED*: No *COPY OF PRESCRIPTION DRUG MONITORING REPORT IN PATIENT SYEDA: No Referrals: Van Perez MD [Primary Care Provider] - Forms: ED Department Discharge
== END 2018-10-13 21:34 | disposition other institution (70) ==
LOC: JP.ED 19:53
DX: F10.129 Alcohol abuse with intoxication, unspecified (principal); Z79.899 Other long term (current) drug therapy; Y90.8 Blood alcohol level of 240 mg/100 ml or more; I11.0 Hypertensive heart disease with heart failure; I50.9 Heart failure, unspecified; E03.9 Hypothyroidism, unspecified; F41.9 Anxiety disorder, unspecified; F32.9 Major depressive disorder, single episode, unspecified; E66.9 Obesity, unspecified; Z68.33 Body mass index [BMI] 33.0-33.9, adult
CPT/HCPCS: 36415; 80305; 99284; G0480

== ENCOUNTER 2018-10-14 13:26 | Emergency (ER) | payer MEDICARE ==
[2018-10-14 13:31] VITALS: BP 131/81
--- NOTE | 2018-10-14 14:09 | EDM.PDOCBH ---
ED HPI GENERAL MEDICAL PROBLEM - General Chief Complaint: Drug or Alcohol Abuse Stated Complaint: VIA [facility] AM Time Seen by Provider: 10/14/18 13:28 Source of Information: Reports: Patient History Limitations: Reports: No Limitations - History of Present Illness INITIAL COMMENTS - FREE TEXT/NARRATIVE: 68 yo female presents with etOH intoxication and request to go to [facility]. She had presented to ER last night but do to her having to go after dark she was unable to go last evening do to transportation issues. She continued to drink through the night and presented to ER via ambulance this afternoon - Related Data Allergies Allergy/AdvReac Type Severity Reaction Status Date / Time No Known Allergies Allergy Verified 10/14/18 13:31 Home Meds: Home Meds DULoxetine [Cymbalta] 60 mg PO DAILY 02/27/16 [History] Furosemide [Lasix] 20 mg PO ASDIRECTED PRN 02/27/16 [History] Gabapentin [Neurontin] 900 mg PO BID 02/27/16 [History] Levothyroxine 88 mcg PO DAILY 02/27/16 [History] Omeprazole 20 mg PO DAILY 02/27/16 [History] traZODone 200 mg PO BEDTIME 02/27/16 [History] Potassium Chloride [Klor-Con M20] 20 meq PO DAILY PRN 11/22/17 [History] Spironolactone [Aldactone] 25 mg PO DAILY 11/22/17 [History] busPIRone [Buspar] 20 mg PO BID 11/22/17 [History] Metoprolol Succinate 25 mg PO DAILY 07/29/18 [History] Cholecalciferol (Vitamin D3) [Vitamin D3] 1,000 unit PO DAILY 08/22/18 [History] FA/Lycopene/Lut/MV,Ca,Iron,Min [Centrum] 1 tab PO DAILY 08/22/18 [History] Gluc 2KCl/Chondr/Maggi Hy/Hy Ac [Glucosamine & Chondroitin Cap] 1 tab PO DAILY [History] L.acidoph,Paracasei, B.lactis [Probiotic] 1 tab PO DAILY 08/22/18 [History] Milk Thistle 150 mg PO DAILY 08/22/18 [History] Multivitamin with Minerals [Hair, Skin and Nails] 1 tab PO DAILY 08/22/18 [ History] Turmeric 400 mg PO DAILY 08/22/18 [History] Ubidecarenone/[place]-3/Vit E [Co Q-10-Vit E-Fish Oil Sfgl] 1 tab PO DAILY [History] Vitamin B Complex [B Complex] 1 each PO DAILY 08/22/18 [History] Past Medical History HEENT History: Reports: Cataract, Impaired Vision Cardiovascular History: Reports: Heart Failure, Hypertension Respiratory History: Reports: None Gastrointestinal History: Reports: None Genitourinary History: Reports: None 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, Musculoskeletal History: Reports: Back Pain, Chronic, Fibromyalgia, Neck Pain, Chronic Other Musculoskeletal History: torn rotator cuff Neurological History: Reports: Concussion, Seizure, Other (See Below) Other Neuro History: 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 Psychiatric History: Reports: Addiction, Anxiety, Depression, Panic Attack, PTSD Endocrine/Metabolic History: Reports: Hypothyroidism, Obesity/BMI 30+ Hematologic History: Reports: None Immunologic History: Reports: None Oncologic (Cancer) History: Reports: None Dermatologic History: Reports: None - Past Surgical History Head Surgeries/Procedures: Reports: None HEENT Surgical History: Reports: Cataract Surgery Cardiovascular Surgical History: Reports: None GI Surgical History: Reports: Hernia, Abdominal Other GI Surgeries/Procedures: tummy tuck Female Surgical History: Reports: Cervical Conization Endocrine Surgical History: Reports: None Neurological Surgical History: Reports: Spinal Fusion Musculoskeletal Surgical History: Reports: Shoulder Surgery Oncologic Surgical History: Reports: None Dermatological Surgical History: Reports: None Social & Family History - Family History Family Medical History: Noncontributory - Tobacco Use Smoking Status *Q: Never Smoker Second Hand Smoke Exposure: No - Caffeine Use Caffeine Use: Reports: Coffee Caffeine Use Comment: rare - Alcohol Use Days Per Week of Alcohol Use: 7 Number of Drinks Per Day: 10 Total Drinks Per Week: 70 Date of Last Drink: 10/14/18 Time of Last Drink: 12:00 - Recreational Drug Use Recreational Drug Use: Yes Drug Use in Last 12 Months: No Recreational Drug Type: Reports: Marijuana/Hashish Recreational Drug Use Frequency: Rarely ED ROS GENERAL - Review of Systems Review Of Systems: See Below Constitutional: Denies: Fever, Chills Respiratory: Denies: Shortness of Breath Cardiovascular: Denies: Chest Pain ED EXAM, BEHAVIORAL HEALTH - Physical Exam Exam: See Below Exam Limited By: Intoxication General Appearance: Alert, WD/WN Throat/Mouth: Other (dry mucous membranes) Head: Atraumatic, Normocephalic Respiratory/Chest: No Respiratory Distress, Lungs Clear, Normal Breath Sounds. No: Crackles, Rhonchi, Wheezing Cardiovascular: Normal Peripheral Pulses, Regular Rate, Rhythm, No Edema, No Murmur Neurological: Alert, Normal Mood/Affect Psychiatric: No: Suicidal Plan, Suicidal Thoughts Skin Exam: Warm, Dry, Intact COURSE, BEHAVIORAL HEALTH COMP - Course Vital Signs: Last Vital Signs Temp 35.6 C 10/14/18 13:27 Pulse 84 10/14/18 13:27 Resp 16 10/14/18 13:27 BP 131/81 10/14/18 13:27 Pulse Ox 90 L 10/14/18 13:27 Orders, Labs, Meds: Laboratory Tests 10/14/18 Range/Units 13:28 Ethyl Alcohol 277 mg/dL Discharge vs Psych Eval/Treatment:: 10/14/18 14:09 accepted at [facility] Departure - Departure Time of Disposition: 14:09 Disposition: DC/Tfer to Psych Hosp/Unit 65 Condition: Fair Clinical Impression: Alcohol dependence Qualifiers: Substance use status: with intoxication Complication of substance-induced condition: uncomplicated Qualified Code(s): F10.220 - Alcohol dependence with intoxication, uncomplicated - Discharge Information *PRESCRIPTION DRUG MONITORING PROGRAM REVIEWED*: Not Applicable *COPY OF PRESCRIPTION DRUG MONITORING REPORT IN PATIENT SYEDA: Not Applicable Instructions: Alcohol Use Disorder Referrals: PCP,None [Primary Care Provider] - Additional Instructions: transfer to [place]
== END 2018-10-14 15:19 ==
LOC: JP.ED 13:26
DX: F10.220 Alcohol dependence with intoxication, uncomplicated (principal); Y90.8 Blood alcohol level of 240 mg/100 ml or more; I11.0 Hypertensive heart disease with heart failure; I50.9 Heart failure, unspecified; E03.9 Hypothyroidism, unspecified; E66.9 Obesity, unspecified; Z79.899 Other long term (current) drug therapy; Z68.31 Body mass index [BMI] 31.0-31.9, adult
CPT/HCPCS: 36415; 99284; G0480

== ENCOUNTER 2019-06-02 17:13 | Emergency (ER) | payer MEDICAID, MEDICARE ==
--- NOTE | 2019-06-02 18:10 | EDM.PDOCBH ---
ED HPI GENERAL MEDICAL PROBLEM - General Chief Complaint: Drug or Alcohol Abuse Stated Complaint: MEDICAL [facility]IA [facility] Time Seen by Provider: 06/02/19 18:00 Source of Information: Reports: Patient, Old Records History Limitations: Reports: No Limitations - History of Present Illness INITIAL COMMENTS - FREE TEXT/NARRATIVE: 68 yo female from [place] arrives via EMS requesting detox at [facility]. Says she lives alone. May not be willing to go somewhere else for detox if no beds are available, but has no idea how she would get home in that event. Denies vomiting, diarrhea, or melena. No recent illnesses. Has been drinking since r developer. Has a pHx of ETOH abuse. Onset: Today Onset Date: 06/02/19 Onset Time: 08:00 Duration: Hour(s):, Constant Location: Reports: Generalized Quality: Reports: Other (denies pain) Severity: Moderate Improves with: Reports: None Worsens with: Reports: Other (alcohol consumption) Context: Reports: Other (see HPI) Associated Symptoms: Reports: Other (feels like she might pass out). 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 (see below) (none) - Related Data Allergies Allergy/AdvReac Type Severity Reaction Status Date / Time No Known Allergies Allergy Verified 06/02/19 17:28 Home Meds: Home Meds DULoxetine [Cymbalta] 90 mg PO DAILY 02/27/16 [History] Furosemide [Lasix] 20 mg PO ASDIRECTED PRN 02/27/16 [History] Gabapentin [Neurontin] 900 mg PO BID 02/27/16 [History] Levothyroxine 88 mcg PO DAILY 02/27/16 [History] Omeprazole 20 mg PO DAILY 02/27/16 [History] traZODone 200 mg PO BEDTIME PRN 02/27/16 [History] Potassium Chloride [Klor-Con M20] 20 meq PO DAILY PRN 11/22/17 [History] Spironolactone [Aldactone] 25 mg PO DAILY 11/22/17 [History] busPIRone [Buspar] 15 mg PO BID 11/22/17 [History] Metoprolol Succinate 25 mg PO DAILY 07/29/18 [History] Cholecalciferol (Vitamin D3) [Vitamin D3] 1,000 unit PO DAILY 08/22/18 [History] FA/Lycopene/Lut/MV,Ca,Iron,Min [Centrum] 1 tab PO DAILY 08/22/18 [History] Glucosam/Chondr/Collagn/Hyalur [Glucosamine & Chondroitin Cap] 1 tab PO DAILY [History] L.acidoph,Paracasei, B.lactis [Probiotic] 1 tab PO DAILY 08/22/18 [History] Milk Thistle 150 mg PO DAILY 08/22/18 [History] Multivitamin with Minerals [Hair, Skin and Nails] 1 tab PO DAILY 08/22/18 [ History] Turmeric 400 mg PO DAILY 08/22/18 [History] Ubidecarenone/[place]-3/Vit E [Co Q-10-Vit E-Fish Oil Sfgl] 1 tab PO DAILY [History] Vitamin B Complex [B Complex] 1 each PO DAILY 08/22/18 [History] Past Medical History HEENT History: Reports: Cataract, Impaired Vision Cardiovascular History: Reports: Heart Failure, Hypertension Respiratory History: Reports: None Gastrointestinal History: Reports: GERD Genitourinary History: Reports: None 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: Musculoskeletal History: Reports: Back Pain, Chronic, Fibromyalgia, Neck Pain, Chronic Other Musculoskeletal History: torn rotator cuff Neurological History: Reports: Concussion, Seizure, Other (See Below) Other Neuro History: 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 Psychiatric History: Reports: Addiction, Anxiety, Depression, Panic Attack, PTSD Endocrine/Metabolic History: Reports: Hypothyroidism, Obesity/BMI 30+ Hematologic History: Reports: None Immunologic History: Reports: None Oncologic (Cancer) History: Reports: None Dermatologic History: Reports: None - Past Surgical History Head Surgeries/Procedures: Reports: None HEENT Surgical History: Reports: Cataract Surgery Cardiovascular Surgical History: Reports: None GI Surgical History: Reports: Hernia, Abdominal Other GI Surgeries/Procedures: tummy tuck Female Surgical History: Reports: Cervical Conization Endocrine Surgical History: Reports: None Neurological Surgical History: Reports: Spinal Fusion Musculoskeletal Surgical History: Reports: Shoulder Surgery Oncologic Surgical History: Reports: None Dermatological Surgical History: Reports: None Social & Family History - Family History Family Medical History: Noncontributory - Tobacco Use Smoking Status *Q: Never Smoker - Caffeine Use Caffeine Use: Reports: Coffee Caffeine Use Comment: rare - Recreational Drug Use Recreational Drug Use: Yes Recreational Drug Type: Reports: Marijuana/Hashish ED ROS GENERAL - Review of Systems Review Of Systems: See Below Constitutional: Reports: Other (feels somewhat like she might pass out. ) HEENT: Reports: No Symptoms Respiratory: Reports: No Symptoms Cardiovascular: Reports: No Symptoms Endocrine: Reports: No Symptoms GI/Abdominal: Reports: No Symptoms : Reports: No Symptoms Musculoskeletal: Reports: No Symptoms Skin: Reports: No Symptoms Neurological: Reports: Other (intoxication) Psychiatric: Reports: No Symptoms ED EXAM, BEHAVIORAL HEALTH - Physical Exam Exam: See Below Exam Limited By: No Limitations General Appearance: Alert, WD/WN, No Apparent Distress Eye Exam: Bilateral Eye: Normal Inspection Ears: Normal External Exam, Normal Canal, Hearing Grossly Normal Nose: Normal Inspection, No Blood Throat/Mouth: Normal Inspection, Normal Lips, Normal Oropharynx, Normal Voice, No Airway Compromise Head: Atraumatic, Normocephalic Neck: Normal Inspection Respiratory/Chest: No Respiratory Distress, Lungs Clear, Normal Breath Sounds, No Accessory Muscle Use Cardiovascular: Regular Rate, Rhythm, No Edema GI/Abdominal: Normal Bowel Sounds, Soft, Non-Tender, No Distention Back Exam: Normal Inspection. No: CVA Tenderness (R), CVA Tenderness (L), Decreased Range of Motion, Paraspinal Tenderness Extremities: Normal Inspection, Normal Range of Motion, Non-Tender, No Pedal Edema Neurological: Alert, Normal Mood/Affect, CN II-XII Intact, Normal Cognition, No Motor/Sensory Deficits, Oriented x 3 Psychiatric: Alert, Normal Affect, Normal Cognition, Normal Mood, Oriented Skin Exam: Warm, Dry, Intact, Normal color, No rash COURSE, BEHAVIORAL HEALTH COMP - Course Vital Signs: Last Vital Signs Temp 35.5 C 06/02/19 17:30 Pulse 94 06/02/19 19:27 Resp 15 06/02/19 19:27 BP 108/60 06/02/19 19:27 Pulse Ox 95 06/02/19 18:30 Orders, Labs, Meds: Laboratory Tests 06/02/19 Range/Units 18:04 Ethyl Alcohol 260 mg/dL Departure - Departure Time of Disposition: 21:13 Disposition: Home, Self-Care 01 Condition: Fair Clinical Impression: Alcohol abuse Alcohol intoxication Qualifiers: Complication of substance-induced condition: uncomplicated Qualified Code(s): F10.920 - Alcohol use, unspecified with intoxication, uncomplicated - Discharge Information *PRESCRIPTION DRUG MONITORING PROGRAM REVIEWED*: No *COPY OF PRESCRIPTION DRUG MONITORING REPORT IN PATIENT SYEDA: No Instructions: Alcohol Use Disorder Referrals: PCP,None [Primary Care Provider] - Forms: ED Department Discharge Additional Instructions: No alcohol. Still recommend detox at [facility] or other once you can arrange for transportation. Follow up with your doctor as needed. Sepsis Event Note - Evaluation Sepsis Screening Result: No Definite Risk - Focused Exam Vital Signs: Vital Signs Temp Pulse Resp BP Pulse Ox 06/02/19 19:27 94 15 108/60 06/02/19 18:30 87 15 125/54 L 95 06/02/19 18:14 12 119/62 98 06/02/19 17:45 12 103/62 96 06/02/19 17:30 35.5 C 92 12 119/42 L 96 Date Exam was Performed: 06/02/19 Time Exam was Performed: 21:12
[2019-06-02 19:28] VITALS: BP 108/60; PULSE 94
== END 2019-06-02 22:04 | disposition home or self-care (01) ==
LOC: JP.ED 17:13
DX: F10.120 Alcohol abuse with intoxication, uncomplicated (principal); I11.0 Hypertensive heart disease with heart failure; I50.9 Heart failure, unspecified; K21.9 Gastro-esophageal reflux disease without esophagitis; E66.9 Obesity, unspecified; E03.9 Hypothyroidism, unspecified; F32.9 Major depressive disorder, single episode, unspecified; F41.9 Anxiety disorder, unspecified; Z79.890 Hormone replacement therapy; Z79.899 Other long term (current) drug therapy; Z68.28 Body mass index [BMI] 28.0-28.9, adult; Y90.8 Blood alcohol level of 240 mg/100 ml or more
CPT/HCPCS: 36415; 80307; 99283; 99284

== ENCOUNTER 2019-06-27 14:50 | Emergency (ER) | payer MEDICARE ==
[2019-06-27 15:01] VITALS: BP 105/52; PULSE 81
--- NOTE | 2019-06-27 15:04 | EDM.PDOCBH ---
ED HPI GENERAL MEDICAL PROBLEM - General Chief Complaint: Drug or Alcohol Abuse Stated Complaint: MEDICAL VIA [facility] Time Seen by Provider: 06/27/19 14:50 Source of Information: Reports: Patient, EMS, Old Records History Limitations: Reports: Intoxication - History of Present Illness Onset: Other (Known chronic alcoholic. Has been through previous months of sobriety. Wanted to stop drinking but developed precursor signs of drawl seizure (visual hallucinations) so she started drinking in order to prevent a seizure.) Duration: Chronic Associated Symptoms: Reports: No Other Symptoms - Related Data Allergies Allergy/AdvReac Type Severity Reaction Status Date / Time No Known Allergies Allergy Verified 06/27/19 15:01 Home Meds: Home Meds DULoxetine [Cymbalta] 90 mg PO DAILY 02/27/16 [History] Furosemide [Lasix] 20 mg PO ASDIRECTED PRN 02/27/16 [History] Gabapentin [Neurontin] 900 mg PO BID 02/27/16 [History] Levothyroxine 88 mcg PO DAILY 02/27/16 [History] Omeprazole 20 mg PO DAILY 02/27/16 [History] traZODone 200 mg PO BEDTIME PRN 02/27/16 [History] Potassium Chloride [Klor-Con M20] 20 meq PO DAILY PRN 11/22/17 [History] Spironolactone [Aldactone] 25 mg PO DAILY 11/22/17 [History] busPIRone [Buspar] 15 mg PO BID 11/22/17 [History] Metoprolol Succinate 25 mg PO DAILY 07/29/18 [History] Cholecalciferol (Vitamin D3) [Vitamin D3] 1,000 unit PO DAILY 08/22/18 [History] FA/Lycopene/Lut/MV,Ca,Iron,Min [Centrum] 1 tab PO DAILY 08/22/18 [History] Glucosam/Chondr/Collagn/Hyalur [Glucosamine & Chondroitin Cap] 1 tab PO DAILY [History] L.acidoph,Paracasei, B.lactis [Probiotic] 1 tab PO DAILY 08/22/18 [History] Milk Thistle 150 mg PO DAILY 08/22/18 [History] Multivitamin with Minerals [Hair, Skin and Nails] 1 tab PO DAILY 08/22/18 [ History] Turmeric 400 mg PO DAILY 08/22/18 [History] Ubidecarenone/[place]-3/Vit E [Co Q-10-Vit E-Fish Oil Sfgl] 1 tab PO DAILY [History] Vitamin B Complex [B Complex] 1 each PO DAILY 08/22/18 [History] Past Medical History HEENT History: Reports: Cataract, Impaired Vision Cardiovascular History: Reports: Heart Failure, Hypertension Respiratory History: Reports: None Gastrointestinal History: Reports: GERD Genitourinary History: Reports: 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: Musculoskeletal History: Reports: Back Pain, Chronic, Fibromyalgia, Neck Pain, Chronic Other Musculoskeletal History: torn rotator cuff Neurological History: Reports: Concussion, Seizure, Other (See Below) Other Neuro History: 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 Psychiatric History: Reports: Addiction, Anxiety, Depression, Panic Attack, PTSD Endocrine/Metabolic History: Reports: Hypothyroidism, Obesity/BMI 30+ Hematologic History: Reports: None Immunologic History: Reports: None Oncologic (Cancer) History: Reports: None Dermatologic History: Reports: None - Past Surgical History Head Surgeries/Procedures: Reports: None HEENT Surgical History: Reports: Cataract Surgery Cardiovascular Surgical History: Reports: None GI Surgical History: Reports: Hernia, Abdominal Other GI Surgeries/Procedures: tummy tuck Female Surgical History: Reports: Cervical Conization Endocrine Surgical History: Reports: None Neurological Surgical History: Reports: Spinal Fusion Musculoskeletal Surgical History: Reports: Shoulder Surgery Oncologic Surgical History: Reports: None Dermatological Surgical History: Reports: None Social & Family History - Family History Family Medical History: Noncontributory - Caffeine Use Caffeine Use: Reports: Coffee Caffeine Use Comment: rare - Alcohol Use Alcohol Use History: Yes Alcohol Use Frequency: Daily (In the last 24 hours has been drinking wine and vodka) ED ROS GENERAL - Review of Systems Review Of Systems: See Below Constitutional: Reports: Malaise, Diaphoresis HEENT: Reports: No Symptoms Respiratory: Denies: Shortness of Breath, Wheezing Endocrine: Reports: Fatigue GI/Abdominal: Reports: No Symptoms Musculoskeletal: Reports: No Symptoms Skin: Denies: Pallor, Rash Neurological: Denies: Headache, Seizure, Trouble Speaking Psychiatric: Reports: Depression (Intermittently tearful and makes self deprecating statements due to her recognition of alcoholism and inability to control herself) ED EXAM, BEHAVIORAL HEALTH - Physical Exam Exam: See Below Exam Limited By: Intoxication General Appearance: Alert, No Apparent Distress Eye Exam: Bilateral Eye: PERRL Ears: Normal External Exam Nose: Normal Mucosa Throat/Mouth: Normal Inspection, Normal Voice Head: Atraumatic, Normocephalic Neck: Supple, Non-Tender Respiratory/Chest: No Respiratory Distress, Lungs Clear Cardiovascular: Regular Rate, Rhythm, No JVD GI/Abdominal: Soft, Non-Tender Extremities: Normal Inspection, Normal Range of Motion Neurological: Alert, Normal Mood/Affect Psychiatric: Alert. No: Suicidal Thoughts Skin Exam: Warm, Dry, No rash COURSE, BEHAVIORAL HEALTH COMP - Course Vital Signs: Last Vital Signs Temp 34.8 C L 06/27/19 14:58 Pulse 81 06/27/19 14:58 Resp 18 06/27/19 14:58 BP 105/52 L 06/27/19 14:58 Pulse Ox 92 L 06/27/19 14:58 Orders, Labs, Meds: Active Orders 24 hr Category Date Time Status Overnight Pulse Oximetry [RC] Click to Edit Care 06/27/19 14:58 Active Pulse Oximetry Continuous Monitoring [OM.PC] Routine Oth 06/27/19 14:57 Ordered Laboratory Tests 06/27/19 06/27/19 06/27/19 Range/Units 15:01 15:01 15:01 WBC 4.5 (4.5-11.0) K/uL RBC 4.44 (3.30-5.50) M/uL Hgb 13.7 (12.0-15.0) g/dL Hct 43.9 (36.0-48.0) % MCV 99 H (80-98) fL MCH 31 (27-31) pg MCHC 31 L (32-36) % Plt Count 182 (150-400) K/uL Sodium 147 (140-148) mmol/L Potassium 3.9 (3.6-5.2) mmol/L Chloride 107 (100-108) mmol/L Carbon Dioxide 31 (21-32) mmol/L Anion Gap 9.4 (5.0-14.0) mmol/L BUN 8 (7-18) mg/dL Creatinine 0.7 (0.6-1.0) mg/dL Est Cr Clr Drug Dosing 70.18 mL/min Estimated GFR (MDRD) > 60 (>60) Glucose 79 (74-106) mg/dL Calcium 8.2 L (8.5-10.1) mg/dL Total Bilirubin 0.1 L D (0.2-1.0) mg/dL AST 22 (15-37) U/L ALT 28 (12-78) U/L Alkaline Phosphatase 68 (46-116) U/L Total Protein 7.0 (6.4-8.2) g/dL Albumin 3.7 (3.4-5.0) g/dL Globulin 3.3 (2.3-3.5) g/dL Albumin/Globulin Ratio 1.1 L (1.2-2.2) Urine Color (YELLOW) Urine Appearance (CLEAR) Urine pH (5.0-8.0) Ur Specific Welcome (1.008-1.030) Urine Protein (NEGATIVE) mg/dL Urine Glucose (UA) (NEGATIVE) mg/dL Urine Ketones (NEGATIVE) mg/dL Urine Occult Blood (NEGATIVE) Urine Nitrite (NEGATIVE) Urine Bilirubin (NEGATIVE) Urine Urobilinogen (0.2-1.0) EU/dL Ur Leukocyte Esterase (NEGATIVE) Urine RBC (0-5) Urine WBC (0-5) Ur Epithelial Cells Amorphous Sediment Urine Bacteria Urine Mucus Urine Opiates Screen (NEGATIVE) Ur Oxycodone Screen (NEGATIVE) Urine Methadone Screen (NEGATIVE) Ur Propoxyphene Screen (NEGATIVE) Ur Barbiturates Screen (NEGATIVE) Ur Tricyclics Screen (NEGATIVE) Ur Phencyclidine Scrn (NEGATIVE) Ur Amphetamine Screen (NEGATIVE) U Methamphetamines Scrn (NEGATIVE) Urine MDMA Screen (NEGATIVE) U Benzodiazepines Scrn (NEGATIVE) U Cocaine Metab Screen (NEGATIVE) U Marijuana (THC) Screen (NEGATIVE) Ethyl Alcohol 288 mg/dL 06/27/19 06/27/19 Range/Units 15:22 15:22 WBC (4.5-11.0) K/uL RBC (3.30-5.50) M/uL Hgb (12.0-15.0) g/dL Hct (36.0-48.0) % MCV (80-98) fL MCH (27-31) pg MCHC (32-36) % Plt Count (150-400) K/uL Sodium (140-148) mmol/L Potassium (3.6-5.2) mmol/L Chloride (100-108) mmol/L Carbon Dioxide (21-32) mmol/L Anion Gap (5.0-14.0) mmol/L BUN (7-18) mg/dL Creatinine (0.6-1.0) mg/dL Est Cr Clr Drug Dosing mL/min Estimated GFR (MDRD) (>60) Glucose (74-106) mg/dL Calcium (8.5-10.1) mg/dL Total Bilirubin (0.2-1.0) mg/dL AST (15-37) U/L ALT (12-78) U/L Alkaline Phosphatase (46-116) U/L Total Protein (6.4-8.2) g/dL Albumin (3.4-5.0) g/dL Globulin (2.3-3.5) g/dL Albumin/Globulin Ratio (1.2-2.2) Urine Color Yellow (YELLOW) Urine Appearance Clear (CLEAR) Urine pH 5.0 (5.0-8.0) Ur Specific Welcome 1.020 (1.008-1.030) Urine Protein Negative (NEGATIVE) mg/dL Urine Glucose (UA) Negative (NEGATIVE) mg/dL Urine Ketones Negative (NEGATIVE) mg/dL Urine Occult Blood Negative (NEGATIVE) Urine Nitrite Negative (NEGATIVE) Urine Bilirubin Negative (NEGATIVE) Urine Urobilinogen 0.2 (0.2-1.0) EU/dL Ur Leukocyte Esterase Negative (NEGATIVE) Urine RBC Not seen (0-5) Urine WBC 0-5 (0-5) Ur Epithelial Cells Few Amorphous Sediment Not seen Urine Bacteria Not seen Urine Mucus Not seen Urine Opiates Screen Negative (NEGATIVE) Ur Oxycodone Screen Negative (NEGATIVE) Urine Methadone Screen Negative (NEGATIVE) Ur Propoxyphene Screen Negative (NEGATIVE) Ur Barbiturates Screen Negative (NEGATIVE) Ur Tricyclics Screen Negative (NEGATIVE) Ur Phencyclidine Scrn Negative (NEGATIVE) Ur Amphetamine Screen Negative (NEGATIVE) U Methamphetamines Scrn Negative (NEGATIVE) Urine MDMA Screen Negative (NEGATIVE) U Benzodiazepines Scrn Presumptive positive H (NEGATIVE) U Cocaine Metab Screen Negative (NEGATIVE) U Marijuana (THC) Screen Presumptive positive H (NEGATIVE) Ethyl Alcohol mg/dL Medications Discontinued Medications Generic Name Dose Route Start Last Admin Trade Name Freq PRN Reason Stop Dose Admin Lorazepam 1 mg 06/27/19 14:56 06/27/19 15:30 Ativan IM 06/27/19 14:57 1 mg ONETIME ONE Administration Departure - Departure Time of Disposition: 15:40 (Prior to arrival patient had made arrangements for detoxification and she is planning on going there after being discharged from our facility.) Disposition: Home, Self-Care 01 Condition: Good Clinical Impression: Alcohol dependence Qualifiers: Substance use status: with intoxication Complication of substance-induced condition: uncomplicated Qualified Code(s): F10.220 - Alcohol dependence with intoxication, uncomplicated - Discharge Information Instructions: Alcohol Use Disorder Referrals: PCP,None [Primary Care Provider] - Forms: ED Department Discharge Sepsis Event Note - Focused Exam Vital Signs: Vital Signs Temp Pulse Resp BP Pulse Ox 06/27/19 14:58 34.8 C L 81 18 105/52 L 92 L Date Exam was Performed: 06/27/19 Time Exam was Performed: 15:42 - My Orders Last 24 Hours: My Active Orders 06/27/19 14:57 Pulse Oximetry Continuous Monitoring [OM.PC] Routine 06/27/19 14:58 Overnight Pulse Oximetry [RC] Click to Edit - Assessment/Plan Last 24 Hours: My Active Orders 06/27/19 14:57 Pulse Oximetry Continuous Monitoring [OM.PC] Routine 06/27/19 14:58 Overnight Pulse Oximetry [RC] Click to Edit
[2019-06-27] MEDS: LORazepam 2 MG/ML SDV IM ONE (15:30)
== END 2019-06-27 16:33 | disposition home or self-care (01) ==
LOC: JP.ED 14:50
DX: F10.220 Alcohol dependence with intoxication, uncomplicated (principal); I11.0 Hypertensive heart disease with heart failure; I50.9 Heart failure, unspecified; F41.9 Anxiety disorder, unspecified; F32.9 Major depressive disorder, single episode, unspecified; Z79.899 Other long term (current) drug therapy
CPT/HCPCS: 36415; 80053; 80305; 80307; 81001; 85027; 96372; 99283; 99285; J2060

== ENCOUNTER 2019-07-03 09:43 | Emergency (ER) | payer MEDICARE, MEDICAID ==
[2019-07-03 09:46] VITALS: BP 139/77; PULSE 87
[2019-07-03] MEDS ORDERED: LORazepam 1 MG Tab PO ONE ×2 (10:28→12:00)
--- NOTE | 2019-07-03 10:34 | EDM.PDOCBH ---
ED HPI GENERAL MEDICAL PROBLEM - General Chief Complaint: Drug or Alcohol Abuse Stated Complaint: FABRICIOEL Time Seen by Provider: 07/03/19 10:29 Source of Information: Reports: Patient History Limitations: Reports: No Limitations - History of Present Illness INITIAL COMMENTS - FREE TEXT/NARRATIVE: pt has been drinking heavily. She was at detox and left there this week end. She started drinking immediately. She had been sober from September to the first june. She was at the focus unit in [place] and she states that she does know what to do. Onset: Gradual Duration: Hour(s): Location: Reports: Generalized, Other (pt last drank this am. ) Associated Symptoms: Reports: Weakness - Related Data Allergies Allergy/AdvReac Type Severity Reaction Status Date / Time No Known Allergies Allergy Verified 07/03/19 09:52 Home Meds: Home Meds DULoxetine [Cymbalta] 90 mg PO DAILY 02/27/16 [History] Furosemide [Lasix] 20 mg PO ASDIRECTED PRN 02/27/16 [History] Gabapentin [Neurontin] 900 mg PO BID 02/27/16 [History] Levothyroxine 88 mcg PO DAILY 02/27/16 [History] Omeprazole 20 mg PO DAILY 02/27/16 [History] traZODone 200 mg PO BEDTIME PRN 02/27/16 [History] Potassium Chloride [Klor-Con M20] 20 meq PO DAILY PRN 11/22/17 [History] Spironolactone [Aldactone] 25 mg PO DAILY 11/22/17 [History] busPIRone [Buspar] 15 mg PO BID 11/22/17 [History] Metoprolol Succinate 25 mg PO DAILY 07/29/18 [History] Cholecalciferol (Vitamin D3) [Vitamin D3] 1,000 unit PO DAILY 08/22/18 [History] FA/Lycopene/Lut/MV,Ca,Iron,Min [Centrum] 1 tab PO DAILY 08/22/18 [History] Glucosam/Chondr/Collagn/Hyalur [Glucosamine & Chondroitin Cap] 1 tab PO DAILY [History] L.acidoph,Paracasei, B.lactis [Probiotic] 1 tab PO DAILY 08/22/18 [History] Milk Thistle 150 mg PO DAILY 08/22/18 [History] Multivitamin with Minerals [Hair, Skin and Nails] 1 tab PO DAILY 08/22/18 [ History] Turmeric 400 mg PO DAILY 08/22/18 [History] Ubidecarenone/[place]-3/Vit E [Co Q-10-Vit E-Fish Oil Sfgl] 1 tab PO DAILY [History] Vitamin B Complex [B Complex] 1 each PO DAILY 08/22/18 [History] Past Medical History HEENT History: Reports: Cataract, Impaired Vision Cardiovascular History: Reports: Heart Failure, Hypertension Respiratory History: Reports: None Gastrointestinal History: Reports: GERD Genitourinary History: Reports: 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: Musculoskeletal History: Reports: Back Pain, Chronic, Fibromyalgia, Neck Pain, Chronic Other Musculoskeletal History: torn rotator cuff Neurological History: Reports: Concussion, Seizure, Other (See Below) Other Neuro History: 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 Psychiatric History: Reports: Addiction, Anxiety, Depression, Panic Attack, PTSD Endocrine/Metabolic History: Reports: Hypothyroidism, Obesity/BMI 30+ Hematologic History: Reports: None Immunologic History: Reports: None Oncologic (Cancer) History: Reports: None Dermatologic History: Reports: None - Past Surgical History Head Surgeries/Procedures: Reports: None HEENT Surgical History: Reports: Cataract Surgery Cardiovascular Surgical History: Reports: None GI Surgical History: Reports: Hernia, Abdominal Other GI Surgeries/Procedures: tummy tuck Female Surgical History: Reports: Cervical Conization Endocrine Surgical History: Reports: None Neurological Surgical History: Reports: Spinal Fusion Musculoskeletal Surgical History: Reports: Shoulder Surgery Oncologic Surgical History: Reports: None Dermatological Surgical History: Reports: None Social & Family History - Family History Family Medical History: Noncontributory - Tobacco Use Smoking Status *Q: Never Smoker Second Hand Smoke Exposure: No - Caffeine Use Caffeine Use: Reports: Coffee Other Caffeine Use: 3 cups per day Caffeine Use Comment: rare - Alcohol Use Days Per Week of Alcohol Use: 7 Number of Drinks Per Day: 4 Total Drinks Per Week: 28 - Recreational Drug Use Recreational Drug Use: No ED ROS GENERAL - Review of Systems Review Of Systems: See Below Constitutional: Reports: No Symptoms HEENT: Reports: No Symptoms Respiratory: Reports: No Symptoms Cardiovascular: Reports: No Symptoms Endocrine: Reports: No Symptoms GI/Abdominal: Reports: No Symptoms : Reports: No Symptoms Musculoskeletal: Reports: No Symptoms Skin: Reports: No Symptoms ED EXAM, BEHAVIORAL HEALTH - Physical Exam Exam: See Below Text/Narrative:: pt is alert. She states she last drank this am. She talked at length and she states she definitely knows what to do. She states her boyfriend is coming back from [place] and he is a sober person. Exam Limited By: No Limitations General Appearance: Alert, No Apparent Distress, Other (pupils are equal and reactive. ) Ears: Normal TMs Nose: Normal Inspection Throat/Mouth: Normal Inspection Head: Atraumatic Neck: Normal Inspection Respiratory/Chest: No Respiratory Distress Cardiovascular: Regular Rate, Rhythm, Tachycardia GI/Abdominal: Soft, Non-Tender (Female) Exam: Deferred Rectal (Female) Exam: Deferred Back Exam: Normal Inspection Extremities: Normal Inspection Neurological: Alert, Normal Cognition COURSE, BEHAVIORAL HEALTH COMP - Course Vital Signs: Last Vital Signs Temp 36.3 C 07/03/19 09:49 Pulse 87 07/03/19 09:49 Resp 16 07/03/19 09:49 BP 139/77 07/03/19 09:49 Pulse Ox 93 L 07/03/19 09:49 Orders, Labs, Meds: Laboratory Tests 07/03/19 07/03/19 07/03/19 Range/Units 10:05 10:05 10:09 WBC 8.3 (4.5-11.0) K/uL RBC 4.78 (3.30-5.50) M/uL Hgb 14.8 (12.0-15.0) g/dL Hct 47.3 (36.0-48.0) % MCV 99 H (80-98) fL MCH 31 (27-31) pg MCHC 31 L (32-36) % Plt Count 328 (150-400) K/uL Neut % (Auto) 55 (36-66) % Lymph % (Auto) 36 (24-44) % [place] % (Auto) 8 H (2-6) % Eos % (Auto) 1 L (2-4) % Baso % (Auto) 1 (0-1) % Sodium (140-148) mmol/L Potassium (3.6-5.2) mmol/L Chloride (100-108) mmol/L Carbon Dioxide (21-32) mmol/L Anion Gap (5.0-14.0) mmol/L BUN (7-18) mg/dL Creatinine (0.6-1.0) mg/dL Est Cr Clr Drug Dosing mL/min Estimated GFR (MDRD) (>60) Glucose (74-106) mg/dL Calcium (8.5-10.1) mg/dL Total Bilirubin (0.2-1.0) mg/dL AST (15-37) U/L ALT (12-78) U/L Alkaline Phosphatase (46-116) U/L Total Protein (6.4-8.2) g/dL Albumin (3.4-5.0) g/dL Globulin (2.3-3.5) g/dL Albumin/Globulin Ratio (1.2-2.2) Urine Color Yellow (YELLOW) Urine Appearance Clear (CLEAR) Urine pH 5.5 (5.0-8.0) Ur Specific [place] 1.010 (1.008-1.030) Urine Protein Negative (NEGATIVE) mg/dL Urine Glucose (UA) Negative (NEGATIVE) mg/dL Urine Ketones Negative (NEGATIVE) mg/dL Urine Occult Blood Negative (NEGATIVE) Urine Nitrite Negative (NEGATIVE) Urine Bilirubin Negative (NEGATIVE) Urine Urobilinogen 0.2 (0.2-1.0) EU/dL Ur Leukocyte Esterase Small H (NEGATIVE) Urine RBC 0-5 (0-5) Urine WBC 5-10 H (0-5) Ur Epithelial Cells Few Amorphous Sediment Not seen Urine Bacteria Few Urine Mucus Not seen Urine Opiates Screen Negative (NEGATIVE) Ur Oxycodone Screen Negative (NEGATIVE) Urine Methadone Screen Negative (NEGATIVE) Ur Propoxyphene Screen Negative (NEGATIVE) Ur Barbiturates Screen Negative (NEGATIVE) Ur Tricyclics Screen Negative (NEGATIVE) Ur Phencyclidine Scrn Negative (NEGATIVE) Ur Amphetamine Screen Negative (NEGATIVE) U Methamphetamines Scrn Negative (NEGATIVE) Urine MDMA Screen Negative (NEGATIVE) U Benzodiazepines Scrn Presumptive positive H (NEGATIVE) U Cocaine Metab Screen Negative (NEGATIVE) U Marijuana (THC) Screen Negative (NEGATIVE) Ethyl Alcohol mg/dL 07/03/19 07/03/19 Range/Units 10:09 10:09 WBC (4.5-11.0) K/uL RBC (3.30-5.50) M/uL Hgb (12.0-15.0) g/dL Hct (36.0-48.0) % MCV (80-98) fL MCH (27-31) pg MCHC (32-36) % Plt Count (150-400) K/uL Neut % (Auto) (36-66) % Lymph % (Auto) (24-44) % [place] % (Auto) (2-6) % Eos % (Auto) (2-4) % Baso % (Auto) (0-1) % Sodium 143 (140-148) mmol/L Potassium 4.3 (3.6-5.2) mmol/L Chloride 102 (100-108) mmol/L Carbon Dioxide 34 H (21-32) mmol/L Anion Gap 11.3 (5.0-14.0) mmol/L BUN 8 (7-18) mg/dL Creatinine 0.6 (0.6-1.0) mg/dL Est Cr Clr Drug Dosing 81.87 mL/min Estimated GFR (MDRD) > 60 (>60) Glucose 97 (74-106) mg/dL Calcium 8.7 (8.5-10.1) mg/dL Total Bilirubin 0.2 D (0.2-1.0) mg/dL AST 15 (15-37) U/L ALT 27 (12-78) U/L Alkaline Phosphatase 62 (46-116) U/L Total Protein 7.5 (6.4-8.2) g/dL Albumin 3.9 (3.4-5.0) g/dL Globulin 3.6 H (2.3-3.5) g/dL Albumin/Globulin Ratio 1.1 L (1.2-2.2) Urine Color (YELLOW) Urine Appearance (CLEAR) Urine pH (5.0-8.0) Ur Specific [place] (1.008-1.030) Urine Protein (NEGATIVE) mg/dL Urine Glucose (UA) (NEGATIVE) mg/dL Urine Ketones (NEGATIVE) mg/dL Urine Occult Blood (NEGATIVE) Urine Nitrite (NEGATIVE) Urine Bilirubin (NEGATIVE) Urine Urobilinogen (0.2-1.0) EU/dL Ur Leukocyte Esterase (NEGATIVE) Urine RBC (0-5) Urine WBC (0-5) Ur Epithelial Cells Amorphous Sediment Urine Bacteria Urine Mucus Urine Opiates Screen (NEGATIVE) Ur Oxycodone Screen (NEGATIVE) Urine Methadone Screen (NEGATIVE) Ur Propoxyphene Screen (NEGATIVE) Ur Barbiturates Screen (NEGATIVE) Ur Tricyclics Screen (NEGATIVE) Ur Phencyclidine Scrn (NEGATIVE) Ur Amphetamine Screen (NEGATIVE) U Methamphetamines Scrn (NEGATIVE) Urine MDMA Screen (NEGATIVE) U Benzodiazepines Scrn (NEGATIVE) U Cocaine Metab Screen (NEGATIVE) U Marijuana (THC) Screen (NEGATIVE) Ethyl Alcohol 324 mg/dL Medications Discontinued Medications Generic Name Dose Route Start Last Admin Trade Name Boogieq PRN Reason Stop Dose Admin Lorazepam 1 mg 07/03/19 10:28 07/03/19 10:33 Ativan PO 07/03/19 10:29 1 mg ONETIME ONE Administration Medical Clearance: 07/03/19 10:39 pt has good looking labs. Her etoh is .324. She is willin to go to [facility] once again for detox. Departure - Departure Time of Disposition: 10:40 Disposition: DC/Tfer to [facility]/Unit [facility] Condition: Fair Clinical Impression: Acute alcohol intoxication, ETOH abuse - Discharge Information Referrals: PCP,None [Primary Care Provider] - Forms: ED Department Discharge Care Plan Goals: transfer to [facility] detox. Sepsis Event Note - Evaluation Sepsis Screening Result: No Definite Risk - Focused Exam Vital Signs: Vital Signs Temp Pulse Resp BP Pulse Ox 07/03/19 09:49 36.3 C 87 16 139/77 93 L 07/03/19 09:45 36.3 C 87 16 139/77 93 L Date Exam was Performed: 07/03/19 Time Exam was Performed: 10:39
== END 2019-07-03 12:40 ==
LOC: JP.ED 09:43
DX: F10.129 Alcohol abuse with intoxication, unspecified (principal); Y90.7 Blood alcohol level of 200-239 mg/100 ml; I11.0 Hypertensive heart disease with heart failure; I50.9 Heart failure, unspecified; K21.9 Gastro-esophageal reflux disease without esophagitis; F41.9 Anxiety disorder, unspecified; F32.9 Major depressive disorder, single episode, unspecified; E66.9 Obesity, unspecified; Z68.30 Body mass index [BMI] 30.0-30.9, adult; E03.9 Hypothyroidism, unspecified; Z79.899 Other long term (current) drug therapy
CPT/HCPCS: 36415; 80053; 80305; 80307; 81001; 85025; 99283; 99285; A9270

== ENCOUNTER 2019-08-15 16:11 | Emergency (ER) | payer MEDICARE ==
[2019-08-15 16:18] VITALS: BP 128/72; PULSE 79
--- NOTE | 2019-08-15 17:25 | EDM.PDOCBH ---
ED HPI GENERAL MEDICAL PROBLEM - General Chief Complaint: Drug or Alcohol Abuse Stated Complaint: DRINKING SINCE TUESDAY Time Seen by Provider: 08/15/19 16:20 Source of Information: Reports: Patient, EMS History Limitations: Reports: Intoxication - History of Present Illness INITIAL COMMENTS - FREE TEXT/NARRATIVE: 69-year-old female with chronic alcoholism, has been to detox 5 times in the last 5 weeks. She has been drinking for the past 6 days. Today she became nauseated and had one emesis, and wanted to go to detox so called the ambulance. No abdominal pain. Onset: Unknown/Unsure Associated Symptoms: Reports: Nausea/Vomiting. Denies: Confusion, Chest Pain, Cough, Fever/Chills, Shortness of Breath Right Back Pain Score (Numeric/FACES): 4 - Related Data Allergies Allergy/AdvReac Type Severity Reaction Status Date / Time No Known Allergies Allergy Verified 07/03/19 09:52 Home Meds: Home Meds DULoxetine [Cymbalta] 90 mg PO DAILY 02/27/16 [History] Furosemide [Lasix] 20 mg PO ASDIRECTED PRN 02/27/16 [History] Gabapentin [Neurontin] 900 mg PO BID 02/27/16 [History] Levothyroxine 88 mcg PO DAILY 02/27/16 [History] Omeprazole 20 mg PO DAILY 02/27/16 [History] traZODone 200 mg PO BEDTIME PRN 02/27/16 [History] Potassium Chloride [Klor-Con M20] 20 meq PO DAILY PRN 11/22/17 [History] Spironolactone [Aldactone] 25 mg PO DAILY 11/22/17 [History] busPIRone [Buspar] 15 mg PO BID 11/22/17 [History] Metoprolol Succinate 25 mg PO DAILY 07/29/18 [History] Cholecalciferol (Vitamin D3) [Vitamin D3] 1,000 unit PO DAILY 08/22/18 [History] FA/Lycopene/Lut/MV,Ca,Iron,Min [Centrum] 1 tab PO DAILY 08/22/18 [History] Glucosam/Chondr/Collagn/Hyalur [Glucosamine & Chondroitin Cap] 1 tab PO DAILY [History] L.acidoph,Paracasei, B.lactis [Probiotic] 1 tab PO DAILY 08/22/18 [History] Milk Thistle 150 mg PO DAILY 08/22/18 [History] Multivitamin with Minerals [Hair, Skin and Nails] 1 tab PO DAILY 08/22/18 [ History] Turmeric 400 mg PO DAILY 08/22/18 [History] Ubidecarenone/[place]-3/Vit E [Co Q-10-Vit E-Fish Oil Sfgl] 1 tab PO DAILY [History] Vitamin B Complex [B Complex] 1 each PO DAILY 08/22/18 [History] Past Medical History HEENT History: Reports: Cataract, Impaired Vision Cardiovascular History: Reports: Heart Failure, Hypertension Respiratory History: Reports: None Gastrointestinal History: Reports: GERD Genitourinary History: Reports: None [employer] History: Reports: Musculoskeletal History: Reports: Back Pain, Chronic, Fibromyalgia, Neck Pain, Chronic Other Musculoskeletal History: torn rotator cuff Neurological History: Reports: Concussion, Seizure, Other (See Below) Other Neuro History: 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 Psychiatric History: Reports: Addiction, Anxiety, Depression, Panic Attack, PTSD Endocrine/Metabolic History: Reports: Hypothyroidism, Obesity/BMI 30+ Hematologic History: Reports: None Immunologic History: Reports: None Oncologic (Cancer) History: Reports: None Dermatologic History: Reports: None - Past Surgical History Head Surgeries/Procedures: Reports: None HEENT Surgical History: Reports: Cataract Surgery Cardiovascular Surgical History: Reports: None GI Surgical History: Reports: Hernia, Abdominal Other GI Surgeries/Procedures: tummy tuck Female Surgical History: Reports: Cervical Conization Endocrine Surgical History: Reports: None Neurological Surgical History: Reports: Spinal Fusion Musculoskeletal Surgical History: Reports: Shoulder Surgery Oncologic Surgical History: Reports: None Dermatological Surgical History: Reports: None Social & Family History - Family History Family Medical History: Noncontributory - Tobacco Use Smoking Status *Q: Unknown Ever Smoked - Caffeine Use Caffeine Use: Reports: Coffee Other Caffeine Use: 3 cups per day Caffeine Use Comment: rare - Recreational Drug Use Recreational Drug Use: No ED ROS GENERAL - Review of Systems Review Of Systems: See Below Constitutional: Reports: Malaise. Denies: Fever, Chills HEENT: Reports: No Symptoms Respiratory: Denies: Shortness of Breath Cardiovascular: Denies: Chest Pain GI/Abdominal: Reports: Nausea, Vomiting. Denies: Abdominal Pain Skin: Reports: No Symptoms Neurological: Denies: Headache ED EXAM, BEHAVIORAL HEALTH - Physical Exam Exam: See Below Exam Limited By: No Limitations General Appearance: Alert, No Apparent Distress, Other (Patient is obviously intoxicated) Eye Exam: Bilateral Eye: Normal Inspection (No jaundice) Head: Atraumatic Respiratory/Chest: No Respiratory Distress, Lungs Clear Cardiovascular: Regular Rate, Rhythm GI/Abdominal: Soft, Non-Tender Extremities: Normal Inspection. No: Pedal Edema Psychiatric: Other (Patient is intoxicated) Skin Exam: Warm, Dry COURSE, BEHAVIORAL HEALTH COMP - Course Vital Signs: Last Vital Signs Temp 96.1 F L 08/15/19 16:18 Pulse 79 08/15/19 16:18 Resp 16 08/15/19 16:18 BP 128/72 08/15/19 16:18 Pulse Ox 96 08/15/19 16:18 Orders, Labs, Meds: Laboratory Tests 08/15/19 08/15/19 08/15/19 Range/Units 16:37 16:37 16:37 WBC 8.9 (4.5-11.0) K/uL RBC 4.95 (3.30-5.50) M/uL Hgb 15.5 H (12.0-15.0) g/dL Hct 47.8 (36.0-48.0) % MCV 97 (80-98) fL MCH 31 (27-31) pg MCHC 32 (32-36) % Plt Count 298 (150-400) K/uL Neut % (Auto) 52 (36-66) % Lymph % (Auto) 41 (24-44) % [place] % (Auto) 6 (2-6) % Eos % (Auto) 1 L (2-4) % Baso % (Auto) 1 (0-1) % Sodium 143 (140-148) mmol/L Potassium 3.8 (3.6-5.2) mmol/L Chloride 102 (100-108) mmol/L Carbon Dioxide 33 H (21-32) mmol/L Anion Gap 11.8 (5.0-14.0) mmol/L BUN 9 (7-18) mg/dL Creatinine 0.7 (0.6-1.0) mg/dL Est Cr Clr Drug Dosing 110.01 mL/min Estimated GFR (MDRD) > 60 (>60) Glucose 88 (74-106) mg/dL Calcium 8.7 (8.5-10.1) mg/dL Lipase 128 (73-393) U/L Ethyl Alcohol mg/dL 08/15/19 Range/Units 16:37 WBC (4.5-11.0) K/uL RBC (3.30-5.50) M/uL Hgb (12.0-15.0) g/dL Hct (36.0-48.0) % MCV (80-98) fL MCH (27-31) pg MCHC (32-36) % Plt Count (150-400) K/uL Neut % (Auto) (36-66) % Lymph % (Auto) (24-44) % [place] % (Auto) (2-6) % Eos % (Auto) (2-4) % Baso % (Auto) (0-1) % Sodium (140-148) mmol/L Potassium (3.6-5.2) mmol/L Chloride (100-108) mmol/L Carbon Dioxide (21-32) mmol/L Anion Gap (5.0-14.0) mmol/L BUN (7-18) mg/dL Creatinine (0.6-1.0) mg/dL Est Cr Clr Drug Dosing mL/min Estimated GFR (MDRD) (>60) Glucose (74-106) mg/dL Calcium (8.5-10.1) mg/dL Lipase (73-393) U/L Ethyl Alcohol 297 mg/dL Re-Assessment/Re-Exam: CBC and CMP are normal including a lipase. EtOH is 0.297. Explained to the patient that there are no inpatient beds available for detox at [place], patient then paid garcía to be transported back to her home in [place]. She was ambulating without problem and looked medically stable on discharge. She was also given 5 doses of Zofran to take as an as-needed basis for nausea and vomiting, encouraged to avoid further alcohol intake. Departure - Departure Time of Disposition: 18:00 Disposition: Home, Self-Care 01 Clinical Impression: Acute alcohol intoxication Qualifiers: Complication of substance-induced condition: uncomplicated Qualified Code(s): F10.920 - Alcohol use, unspecified with intoxication, uncomplicated - Discharge Information Instructions: Alcohol Intoxication Referrals: PCP,None [Primary Care Provider] - Forms: ED Department Discharge Care Plan Goals: Use Zofran under your tongue every 6-8 hours for nausea and vomiting, it is strongly recommended you avoid alcohol in the future. Sepsis Event Note - Evaluation Sepsis Screening Result: No Definite Risk - Focused Exam Vital Signs: Vital Signs Temp Pulse Resp BP Pulse Ox 08/15/19 16:18 96.1 F L 79 16 128/72 96 08/15/19 16:14 96.1 F L 79 16 128/72 96 Date Exam was Performed: 08/15/19 Time Exam was Performed: 18:57
== END 2019-08-15 18:00 | disposition home or self-care (01) ==
LOC: JP.ED 16:11
DX: F10.229 Alcohol dependence with intoxication, unspecified (principal); Y90.8 Blood alcohol level of 240 mg/100 ml or more; I11.0 Hypertensive heart disease with heart failure; I50.9 Heart failure, unspecified; K21.9 Gastro-esophageal reflux disease without esophagitis; R56.9 Unspecified convulsions; F41.9 Anxiety disorder, unspecified; F32.9 Major depressive disorder, single episode, unspecified; E03.9 Hypothyroidism, unspecified; E66.9 Obesity, unspecified; Z68.1 Body mass index [BMI] 19.9 or less, adult
CPT/HCPCS: 36415; 80048; 80307; 83690; 85025; 99283; 99284

== ENCOUNTER 2019-09-07 16:02 | Emergency (ER) | payer MEDICARE ==
[2019-09-07] MEDS ORDERED: Ondansetron 4 MG Tab.DIS PO ONE (16:26)
[2019-09-07] MEDS ORDERED: Thiamine 100 MG Tab PO ONE (16:26)
--- NOTE | 2019-09-07 16:33 | EDM.PDOCBH ---
<Omar Reynolds G - Last Filed: 09/07/19 16:58> ED HPI GENERAL MEDICAL PROBLEM - General Chief Complaint: Drug or Alcohol Abuse Stated Complaint: [facility] Time Seen by Provider: 09/07/19 16:15 Source of Information: Reports: Patient, EMS, Old Records History Limitations: Reports: No Limitations - History of Present Illness INITIAL COMMENTS - FREE TEXT/NARRATIVE: 69 yo female known alcoholic presents requesting admission to [facility]. Has had yellow diarrhea and several emesis recently. No blood in her emesis. Has been through detox multiple times and also rehab. Last drank right before EMS arrived. Onset: Unknown/Unsure Duration: Chronic, Getting Worse Location: Reports: Generalized Quality: Reports: Dull Severity: Mild (abdomen) Improves with: Reports: None Worsens with: Reports: Other (repetitive vomiting) Context: Reports: Other (see HPI) Associated Symptoms: Reports: Nausea/Vomiting, Other (diarrhea). 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: Other (see below) (EMS gave Versed 1 mg IV and Versed 4 mg IV) Abdominal Pain Score (Numeric/FACES): 2 - Related Data Allergies Allergy/AdvReac Type Severity Reaction Status Date / Time No Known Allergies Allergy Verified 09/07/19 16:15 Home Meds: Home Meds DULoxetine [Cymbalta] 90 mg PO DAILY 02/27/16 [History] Furosemide [Lasix] 20 mg PO ASDIRECTED PRN 02/27/16 [History] Gabapentin [Neurontin] 900 mg PO BID 02/27/16 [History] Levothyroxine 88 mcg PO DAILY 02/27/16 [History] Omeprazole 20 mg PO DAILY 02/27/16 [History] traZODone 200 mg PO BEDTIME PRN 02/27/16 [History] Potassium Chloride [Klor-Con M20] 20 meq PO DAILY PRN 11/22/17 [History] Spironolactone [Aldactone] 25 mg PO DAILY 11/22/17 [History] busPIRone [Buspar] 15 mg PO BID 11/22/17 [History] Metoprolol Succinate 25 mg PO DAILY 07/29/18 [History] Cholecalciferol (Vitamin D3) [Vitamin D3] 1,000 unit PO DAILY 08/22/18 [History] FA/Lycopene/Lut/MV,Ca,Iron,Min [Centrum] 1 tab PO DAILY 08/22/18 [History] Glucosam/Chondr/Collagn/Hyalur [Glucosamine & Chondroitin Cap] 1 tab PO DAILY [History] L.acidoph,Paracasei, B.lactis [Probiotic] 1 tab PO DAILY 08/22/18 [History] Milk Thistle 150 mg PO DAILY 08/22/18 [History] Multivitamin with Minerals [Hair, Skin and Nails] 1 tab PO DAILY 08/22/18 [ History] Turmeric 400 mg PO DAILY 08/22/18 [History] Ubidecarenone/Shannon-3/Vit E [Co Q-10-Vit E-Fish Oil Sfgl] 1 tab PO DAILY [History] Vitamin B Complex [B Complex] 1 each PO DAILY 08/22/18 [History] Past Medical History HEENT History: Reports: Cataract, Impaired Vision Cardiovascular History: Reports: Heart Failure, Hypertension Respiratory History: Reports: None Gastrointestinal History: Reports: GERD Genitourinary History: Reports: None 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: Musculoskeletal History: Reports: Back Pain, Chronic, Fibromyalgia, Neck Pain, Chronic Other Musculoskeletal History: torn rotator cuff Neurological History: Reports: Concussion, Seizure, Other (See Below) Other Neuro History: 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 Psychiatric History: Reports: Addiction, Anxiety, Depression, Panic Attack, PTSD Endocrine/Metabolic History: Reports: Hypothyroidism, Obesity/BMI 30+ Hematologic History: Reports: None Immunologic History: Reports: None Oncologic (Cancer) History: Reports: None Dermatologic History: Reports: None - Past Surgical History Head Surgeries/Procedures: Reports: None HEENT Surgical History: Reports: Cataract Surgery Cardiovascular Surgical History: Reports: None GI Surgical History: Reports: Hernia, Abdominal Other GI Surgeries/Procedures: tummy tuck Female Surgical History: Reports: Cervical Conization Endocrine Surgical History: Reports: None Neurological Surgical History: Reports: Spinal Fusion Musculoskeletal Surgical History: Reports: Shoulder Surgery Oncologic Surgical History: Reports: None Dermatological Surgical History: Reports: None Social & Family History - Family History Family Medical History: Noncontributory - Caffeine Use Caffeine Use: Reports: Coffee Other Caffeine Use: 3 cups per day Caffeine Use Comment: rare ED ROS GENERAL - Review of Systems Review Of Systems: See Below Constitutional: Reports: Malaise HEENT: Reports: No Symptoms Respiratory: Reports: No Symptoms Cardiovascular: Reports: No Symptoms GI/Abdominal: Reports: Diarrhea, Nausea, Vomiting. Denies: Black Stool, Bloody Stool, Constipation, Hematemesis, Hematochezia, Melena : Reports: No Symptoms Musculoskeletal: Reports: No Symptoms Skin: Reports: No Symptoms Neurological: Reports: No Symptoms Psychiatric: Reports: Anxiety ED EXAM, BEHAVIORAL HEALTH - Physical Exam Exam: See Below Exam Limited By: No Limitations General Appearance: Alert, WD/WN, Mild Distress Eye Exam: Bilateral Eye: Normal Inspection Ears: Normal External Exam, Normal Canal, Hearing Grossly Normal, Normal TMs Nose: Normal Inspection, No Blood Throat/Mouth: Normal Inspection, Normal Lips, Normal Oropharynx, Normal Voice, No Airway Compromise Head: Atraumatic, Normocephalic Neck: Normal Inspection Respiratory/Chest: No Respiratory Distress, Lungs Clear, Normal Breath Sounds, No Accessory Muscle Use Cardiovascular: Regular Rate, Rhythm, No Edema, Tachycardia GI/Abdominal: Soft. No: Guarding, Rigid, Rebound Back Exam: Normal Inspection. No: CVA Tenderness (R), CVA Tenderness (L) Extremities: Normal Inspection, Normal Range of Motion, Non-Tender, No Pedal Edema Neurological: Alert, Normal Mood/Affect, CN II-XII Intact, Normal Cognition, No Motor/Sensory Deficits Psychiatric: Alert, Normal Affect, Normal Cognition, Normal Mood, Oriented Skin Exam: Warm, Dry, Intact, Normal color, No rash COURSE, BEHAVIORAL HEALTH COMP - Course Vital Signs: Last Vital Signs Temp 96.7 F L 09/07/19 16:10 Pulse 94 09/07/19 17:34 Resp 18 09/07/19 16:10 BP 130/80 09/07/19 17:34 Pulse Ox 96 09/07/19 16:10 Orders, Labs, Meds: Laboratory Tests 09/07/19 09/07/19 09/07/19 Range/Units 16:32 16:32 17:31 Sodium 141 (140-148) mmol/L Potassium 3.7 (3.6-5.2) mmol/L Chloride 101 (100-108) mmol/L Carbon Dioxide 24 (21-32) mmol/L Anion Gap 16.2 H (5.0-14.0) mmol/L BUN 3 L D (7-18) mg/dL Creatinine 0.6 (0.6-1.0) mg/dL Est Cr Clr Drug Dosing 91.78 mL/min Estimated GFR (MDRD) > 60 (>60) Glucose 75 (74-106) mg/dL Calcium 9.1 (8.5-10.1) mg/dL Total Bilirubin 0.5 D (0.2-1.0) mg/dL AST 22 (15-37) U/L ALT 31 (12-78) U/L Alkaline Phosphatase 62 (46-116) U/L Total Protein 8.0 (6.4-8.2) g/dL Albumin 4.3 (3.4-5.0) g/dL Globulin 3.7 H (2.3-3.5) g/dL Albumin/Globulin Ratio 1.2 (1.2-2.2) Urine Opiates Screen Negative (NEGATIVE) Ur Oxycodone Screen Negative (NEGATIVE) Urine Methadone Screen Negative (NEGATIVE) Ur Propoxyphene Screen Negative (NEGATIVE) Ur Barbiturates Screen Negative (NEGATIVE) Ur Tricyclics Screen Negative (NEGATIVE) Ur Phencyclidine Scrn Negative (NEGATIVE) Ur Amphetamine Screen Negative (NEGATIVE) U Methamphetamines Scrn Negative (NEGATIVE) Urine MDMA Screen Negative (NEGATIVE) U Benzodiazepines Scrn Presumptive positive H (NEGATIVE) U Cocaine Metab Screen Negative (NEGATIVE) U Marijuana (THC) Screen Negative (NEGATIVE) Ethyl Alcohol 221 mg/dL Medications Discontinued Medications Generic Name Dose Route Start Last Admin Trade Name Freq PRN Reason Stop Dose Admin Famotidine 40 mg 09/07/19 16:58 09/07/19 17:06 Pepcid PO 09/07/19 16:59 40 mg ONETIME ONE Administration Lorazepam 1 mg 09/07/19 16:36 09/07/19 16:39 Ativan PO 09/07/19 16:37 1 mg ONETIME ONE Administration Ondansetron HCl 4 mg 09/07/19 16:26 09/07/19 16:38 Zofran Odt PO 09/07/19 16:27 4 mg ONETIME ONE Administration Thiamine HCl 100 mg 09/07/19 16:26 09/07/19 16:38 Vitamin B-1 PO 09/07/19 16:27 100 mg ONETIME ONE Administration Departure - Departure Disposition: DC/Tfer to Other 70 Condition: Fair Clinical Impression: Alcohol intoxication Qualifiers: Complication of substance-induced condition: with unspecified complication Qualified Code(s): F10.929 - Alcohol use, unspecified with intoxication, unspecified Alcohol dependence Qualifiers: Substance use status: with intoxication Complication of substance-induced condition: uncomplicated Qualified Code(s): F10.220 - Alcohol dependence with intoxication, uncomplicated Alcoholic gastritis without bleeding Qualifiers: Chronicity: acute Qualified Code(s): K29.20 - Alcoholic gastritis without bleeding - Discharge Information *PRESCRIPTION DRUG MONITORING PROGRAM REVIEWED*: Not Applicable *COPY OF PRESCRIPTION DRUG MONITORING REPORT IN PATIENT SYEDA: Not Applicable Referrals: PCP,None [Primary Care Provider] - Forms: ED Department Discharge Sepsis Event Note - Evaluation Sepsis Screening Result: No Definite Risk - Focused Exam Vital Signs: Vital Signs Temp Pulse Resp BP Pulse Ox 09/07/19 17:34 94 130/80 09/07/19 16:28 100 122/95 H 09/07/19 16:10 96.7 F L 107 H 18 130/63 96 Date Exam was Performed: 09/07/19 Time Exam was Performed: 16:58 <OfficerLukasz - Last Filed: 09/07/19 18:14> Departure - Departure Time of Disposition: 18:14 Sepsis Event Note - Focused Exam Date Exam was Performed: 09/07/19 Time Exam was Performed: 18:13 - Assessment/Plan Plan: Assessment Alcohol abuse and intoxication Plan Acceptance to [facility] facility will be transported via law enforcement
[2019-09-07] MEDS ORDERED: LORazepam 1 MG Tab PO ONE (16:36)
[2019-09-07] MEDS ORDERED: Famotidine 20 MG Tab PO ONE (16:58)
[2019-09-07 18:36] VITALS: BP 138/86; PULSE 100
== END 2019-09-07 19:03 | disposition other institution (70) ==
LOC: JP.ED 16:02
DX: F10.220 Alcohol dependence with intoxication, uncomplicated (principal); K29.20 Alcoholic gastritis without bleeding; I11.0 Hypertensive heart disease with heart failure; I50.9 Heart failure, unspecified; K21.9 Gastro-esophageal reflux disease without esophagitis; R56.9 Unspecified convulsions; E03.9 Hypothyroidism, unspecified; E66.9 Obesity, unspecified; F41.9 Anxiety disorder, unspecified; F32.9 Major depressive disorder, single episode, unspecified; Z68.27 Body mass index [BMI] 27.0-27.9, adult
CPT/HCPCS: 36415; 80053; 80305; 80307; 99283; 99285; A9270

== ENCOUNTER 2019-10-19 18:06 | Emergency (ER) | payer MEDICARE ==
[2019-10-19 18:27] VITALS: BP 168/76; PULSE 111
[2019-10-19] MEDS ORDERED: LORazepam 1 MG Tab PO ONE (18:43)
--- NOTE | 2019-10-19 19:16 | EDM.PDOCBH ---
ED HPI GENERAL MEDICAL PROBLEM - General Chief Complaint: Drug or Alcohol Abuse Stated Complaint: EVAL Time Seen by Provider: 10/19/19 18:40 Source of Information: Reports: Patient History Limitations: Reports: No Limitations - History of Present Illness INITIAL COMMENTS - FREE TEXT/NARRATIVE: Juanis is a 69 year old female, long standing hx of ETOH abuse, recently at [facility] 2 weeks ago for detox, presents today wanting to return to [facility] to help with her alcoholism, patient has been drinking wine and beer today to help with her shaking, last drink prior to arrival. patient has hx of ETOH withdrawal seizures, started "seeing things" so she figured it was time to get some help. Patient denies any suicidal ideation. Patient denies any other drug use. Patient feels she was doing well until COVID 19, now she hasn't had any AA meetings to go to. Patient arrives here mildly tachycardic and hypertensive. - Related Data Allergies Allergy/AdvReac Type Severity Reaction Status Date / Time No Known Allergies Allergy Verified 10/19/19 18:10 Home Meds: Home Meds DULoxetine [Cymbalta] 90 mg PO DAILY 02/27/16 [History] Furosemide [Lasix] 20 mg PO ASDIRECTED PRN 02/27/16 [History] Gabapentin [Neurontin] 900 mg PO BID 02/27/16 [History] Levothyroxine 88 mcg PO DAILY 02/27/16 [History] Omeprazole 20 mg PO DAILY 02/27/16 [History] traZODone 200 mg PO BEDTIME PRN 02/27/16 [History] Potassium Chloride [Klor-Con M20] 20 meq PO DAILY PRN 11/22/17 [History] Spironolactone [Aldactone] 25 mg PO DAILY 11/22/17 [History] busPIRone [Buspar] 15 mg PO BID 11/22/17 [History] Metoprolol Succinate 25 mg PO DAILY 07/29/18 [History] Cholecalciferol (Vitamin D3) [Vitamin D3] 1,000 unit PO DAILY 08/22/18 [History] FA/Lycopene/Lut/MV,Ca,Iron,Min [Centrum] 1 tab PO DAILY 08/22/18 [History] Glucosam/Chondr/Collagn/Hyalur [Glucosamine & Chondroitin Cap] 1 tab PO DAILY 08/22/18 [History] L.acidoph,Paracasei, B.lactis [Probiotic] 1 tab PO DAILY 08/22/18 [History] Milk Thistle 150 mg PO DAILY 08/22/18 [History] Multivitamin with Minerals [Hair, Skin and Nails] 1 tab PO DAILY 08/22/18 [History] Turmeric 400 mg PO DAILY 08/22/18 [History] Ubidecarenone/Vanleer-3/Vit E [Co Q-10-Vit E-Fish Oil Sfgl] 1 tab PO DAILY 08/22/18 [History] Vitamin B Complex [B Complex] 1 each PO DAILY 08/22/18 [History] Past Medical History HEENT History: Reports: Cataract, Impaired Vision Cardiovascular History: Reports: Heart Failure, Hypertension Respiratory History: Reports: None Gastrointestinal History: Reports: GERD Genitourinary History: Reports: 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: Musculoskeletal History: Reports: Back Pain, Chronic, Fibromyalgia, Neck Pain, Chronic Other Musculoskeletal History: torn rotator cuff Neurological History: Reports: Concussion, Seizure, Other (See Below) Other Neuro History: 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 Psychiatric History: Reports: Addiction, Anxiety, Depression, Panic Attack, PTSD Endocrine/Metabolic History: Reports: Hypothyroidism, Obesity/BMI 30+ Hematologic History: Reports: None Immunologic History: Reports: None Oncologic (Cancer) History: Reports: None Dermatologic History: Reports: None - Past Surgical History Head Surgeries/Procedures: Reports: None HEENT Surgical History: Reports: Cataract Surgery Cardiovascular Surgical History: Reports: None GI Surgical History: Reports: Hernia, Abdominal Other GI Surgeries/Procedures: tummy tuck Female Surgical History: Reports: Cervical Conization Endocrine Surgical History: Reports: None Neurological Surgical History: Reports: Spinal Fusion Musculoskeletal Surgical History: Reports: Shoulder Surgery Oncologic Surgical History: Reports: None Dermatological Surgical History: Reports: None Social & Family History - Family History Family Medical History: Noncontributory - Caffeine Use Caffeine Use: Reports: Coffee Other Caffeine Use: 3 cups per day Caffeine Use Comment: rare - Alcohol Use Days Per Week of Alcohol Use: 7 Number of Drinks Per Day: 2 Total Drinks Per Week: 14 - Recreational Drug Use Recreational Drug Use: No ED ROS GENERAL - Review of Systems Review Of Systems: Comprehensive ROS is negative, except as noted in HPI. ED EXAM, BEHAVIORAL HEALTH - Physical Exam Exam: See Below Exam Limited By: No Limitations General Appearance: Alert, WD/WN, No Apparent Distress, Anxious Eye Exam: Bilateral Eye: EOMI Ears: Normal External Exam Throat/Mouth: Normal Inspection Head: Atraumatic Neck: Normal Inspection, Supple Cardiovascular: Normal Peripheral Pulses, Tachycardia GI/Abdominal: Normal Bowel Sounds, Soft, Non-Tender Back Exam: Normal Inspection Extremities: Normal Inspection Neurological: Alert, Normal Cognition, Oriented x 3, Other (mildly tremulous wi th mild tongue vesiculations) Skin Exam: Warm, Dry, Intact COURSE, BEHAVIORAL HEALTH COMP - Course Vital Signs: Last Vital Signs Temp 35.1 C L 10/19/19 18:39 Pulse 111 H 10/19/19 18:39 Resp 16 10/19/19 18:39 BP 168/76 H 10/19/19 18:39 Pulse Ox 93 L 10/19/19 18:39 Alcohol abuse seeking help at [facility]. Patient has contacted them already. Patient's BA level here is .239, she was given Ativan for her Blood pressure and tachycardia. Blood work and UA unremarkable. [facility] updated, instructed to send patient. Patient discharged from here in stable condition with her family member driving. Orders, Labs, Meds: Laboratory Tests 10/19/19 10/19/19 10/19/19 Range/Units 18:41 18:41 18:41 WBC 5.7 (4.5-11.0) K/uL RBC 4.84 (3.30-5.50) M/uL Hgb 15.1 H (12.0-15.0) g/dL Hct 46.8 (36.0-48.0) % MCV 97 (80-98) fL MCH 31 (27-31) pg MCHC 32 (32-36) % Plt Count 252 (150-400) K/uL Neut % (Auto) 42 (36-66) % Lymph % (Auto) 47 H (24-44) % [place] % (Auto) 10 H (2-6) % Eos % (Auto) 1 L (2-4) % Baso % (Auto) 0 (0-1) % Sodium 143 (140-148) mmol/L Potassium 3.9 (3.6-5.2) mmol/L Chloride 103 (100-108) mmol/L Carbon Dioxide 32 (21-32) mmol/L Anion Gap 8.1 (5.0-14.0) mmol/L BUN 9 D (7-18) mg/dL Creatinine 0.7 (0.6-1.0) mg/dL Est Cr Clr Drug Dosing 67.34 mL/min Estimated GFR (MDRD) > 60 (>60) Glucose 115 H (74-106) mg/dL Calcium 8.6 (8.5-10.1) mg/dL Urine Opiates Screen (NEGATIVE) Ur Oxycodone Screen (NEGATIVE) Urine Methadone Screen (NEGATIVE) Ur Propoxyphene Screen (NEGATIVE) Ur Barbiturates Screen (NEGATIVE) Ur Tricyclics Screen (NEGATIVE) Ur Phencyclidine Scrn (NEGATIVE) Ur Amphetamine Screen (NEGATIVE) U Methamphetamines Scrn (NEGATIVE) Urine MDMA Screen (NEGATIVE) U Benzodiazepines Scrn (NEGATIVE) U Cocaine Metab Screen (NEGATIVE) U Marijuana (THC) Screen (NEGATIVE) Ethyl Alcohol 239 mg/dL 10/19/19 Range/Units 18:45 WBC (4.5-11.0) K/uL RBC (3.30-5.50) M/uL Hgb (12.0-15.0) g/dL Hct (36.0-48.0) % MCV (80-98) fL MCH (27-31) pg MCHC (32-36) % Plt Count (150-400) K/uL Neut % (Auto) (36-66) % Lymph % (Auto) (24-44) % [place] % (Auto) (2-6) % Eos % (Auto) (2-4) % Baso % (Auto) (0-1) % Sodium (140-148) mmol/L Potassium (3.6-5.2) mmol/L Chloride (100-108) mmol/L Carbon Dioxide (21-32) mmol/L Anion Gap (5.0-14.0) mmol/L BUN (7-18) mg/dL Creatinine (0.6-1.0) mg/dL Est Cr Clr Drug Dosing mL/min Estimated GFR (MDRD) (>60) Glucose (74-106) mg/dL Calcium (8.5-10.1) mg/dL Urine Opiates Screen Negative (NEGATIVE) Ur Oxycodone Screen Negative (NEGATIVE) Urine Methadone Screen Negative (NEGATIVE) Ur Propoxyphene Screen Negative (NEGATIVE) Ur Barbiturates Screen Negative (NEGATIVE) Ur Tricyclics Screen Negative (NEGATIVE) Ur Phencyclidine Scrn Negative (NEGATIVE) Ur Amphetamine Screen Negative (NEGATIVE) U Methamphetamines Scrn Negative (NEGATIVE) Urine MDMA Screen Negative (NEGATIVE) U Benzodiazepines Scrn Presumptive positive H (NEGATIVE) U Cocaine Metab Screen Negative (NEGATIVE) U Marijuana (THC) Screen Negative (NEGATIVE) Ethyl Alcohol mg/dL Medications Discontinued Medications Generic Name Dose Route Start Last Admin Trade Name Freq PRN Reason Stop Dose Admin Lorazepam 1 mg 10/19/19 18:43 10/19/19 18:49 Ativan PO 10/19/19 18:44 1 mg ONETIME ONE Administration Departure - Departure Time of Disposition: 19:30 Disposition: DC/Tfer to Other 70 Condition: Good, Fair Clinical Impression: Alcohol withdrawal syndrome Qualifiers: Complication of substance-induced condition: with perceptual disturbance Qualified Code(s): F10.232 - Alcohol dependence with withdrawal with perceptual disturbance Alcohol intoxication Qualifiers: Complication of substance-induced condition: uncomplicated Qualified Code(s): F10.920 - Alcohol use, unspecified with intoxication, uncomplicated - Discharge Information Instructions: Alcohol Intoxication, [id number], Alcohol Withdrawal Syndrome, [id number] Referrals: Van Perez MD [Primary Care Provider] - Forms: ED Department Discharge Sepsis Event Note (ED) - Evaluation Sepsis Screening Result: No Definite Risk - Focused Exam Vital Signs: Vital Signs Temp Pulse Resp BP Pulse Ox 10/19/19 18:39 35.1 C L 111 H 16 168/76 H 93 L 10/19/19 18:24 35.1 C L 111 H 16 168/76 H 93 L
== END 2019-10-19 19:19 | disposition other institution (70) ==
LOC: JP.ED 18:06
DX: F10.232 Alcohol dependence with withdrawal with perceptual disturbance (principal); Y90.7 Blood alcohol level of 200-239 mg/100 ml; I11.0 Hypertensive heart disease with heart failure; I50.9 Heart failure, unspecified; K21.9 Gastro-esophageal reflux disease without esophagitis; F41.9 Anxiety disorder, unspecified; F32.9 Major depressive disorder, single episode, unspecified; E03.9 Hypothyroidism, unspecified; E66.9 Obesity, unspecified; Z68.32 Body mass index [BMI] 32.0-32.9, adult; Z79.899 Other long term (current) drug therapy
CPT/HCPCS: 36415; 80048; 80305; 80307; 85025; 99285; A9270

== ENCOUNTER 2020-04-01 17:59 | Emergency (ER) | payer MEDICARE ==
[2020-04-01] MEDS ORDERED: MVI, Adult with Vitamin K 10 ML, Thiamine 100 MG, Folic Acid 1 MG, Magnesium Sulfate 3 ... IV SCH ×5 (18:45)
--- NOTE | 2020-04-01 18:57 | EDM.PDOC ---
<Oscar Bacon - Last Filed: 04/02/20 06:36> ED HPI GENERAL MEDICAL PROBLEM - General Chief Complaint: Drug or Alcohol Abuse Stated Complaint: [facility] Time Seen by Provider: 04/01/20 18:20 Source of Information: Reports: Patient, EMS History Limitations: Reports: Intoxication - History of Present Illness INITIAL COMMENTS - FREE TEXT/NARRATIVE: 69-year-old female with chronic alcoholism, has been here numerous times usually by EMS for alcohol intoxication looking for detox or treatment. She was last seen in this September, was admitted for long-term treatment for over 2 months. She was discharged in late November or early December, and according to the patient started drinking again in February. She has been drinking daily. She decided today that she wanted to stop again so called the ambulance. No significant nausea or vomiting, denies cough or shortness of breath but she is persistently mildly hypoxic with O2 sats in the high 80s on room air. She is in no distress. She is obviously intoxicated. Onset: Unknown/Unsure Associated Symptoms: Reports: Other (Patient has chronic low back pain) Back Pain Score (Numeric/FACES): 9 - Related Data Allergies Allergy/AdvReac Type Severity Reaction Status Date / Time No Known Allergies Allergy Verified 04/01/20 18:05 Home Meds: Home Meds DULoxetine [Cymbalta] 90 mg PO DAILY 02/27/16 [History] Furosemide [Lasix] 20 mg PO ASDIRECTED PRN 02/27/16 [History] Gabapentin [Neurontin] 900 mg PO TID 02/27/16 [History] Levothyroxine 88 mcg PO DAILY 02/27/16 [History] Omeprazole 20 mg PO DAILY 02/27/16 [History] traZODone 200 mg PO BEDTIME PRN 02/27/16 [History] Potassium Chloride [Klor-Con M20] 20 meq PO DAILY PRN 11/22/17 [History] Spironolactone [Aldactone] 25 mg PO DAILY 11/22/17 [History] Metoprolol Succinate 25 mg PO DAILY 07/29/18 [History] Past Medical History HEENT History: Reports: Cataract, Impaired Vision Cardiovascular History: Reports: Heart Failure, Hypertension Respiratory History: Reports: None Gastrointestinal History: Reports: GERD Genitourinary History: Reports: None 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: Musculoskeletal History: Reports: Back Pain, Chronic, Fibromyalgia, Neck Pain, Chronic Other Musculoskeletal History: torn rotator cuff Neurological History: Reports: Concussion, Seizure, Other (See Below) Other Neuro History: 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 Psychiatric History: Reports: Addiction, Anxiety, Depression, Panic Attack, PTSD Endocrine/Metabolic History: Reports: Hypothyroidism, Obesity/BMI 30+ Hematologic History: Reports: None Immunologic History: Reports: None Oncologic (Cancer) History: Reports: None Dermatologic History: Reports: None - Infectious Disease History Infectious Disease History: Reports: None - Past Surgical History Head Surgeries/Procedures: Reports: None HEENT Surgical History: Reports: Cataract Surgery Cardiovascular Surgical History: Reports: None GI Surgical History: Reports: Hernia, Abdominal Other GI Surgeries/Procedures: tummy tuck Female Surgical History: Reports: Cervical Conization Endocrine Surgical History: Reports: None Neurological Surgical History: Reports: Spinal Fusion Musculoskeletal Surgical History: Reports: Shoulder Surgery Oncologic Surgical History: Reports: None Dermatological Surgical History: Reports: None Social & Family History - Family History Family Medical History: No Pertinent Family History - Tobacco Use Tobacco Use Status *Q: Never Tobacco User - Caffeine Use Caffeine Use: Reports: Coffee Other Caffeine Use: 3 cups per day Caffeine Use Comment: rare - Alcohol Use Date of Last Drink: 04/01/20 - Recreational Drug Use Recreational Drug Use: No ED ROS GENERAL - Review of Systems Review Of Systems: See Below Constitutional: Reports: Malaise. Denies: Fever, Chills Respiratory: Denies: Shortness of Breath, Wheezing, Cough Cardiovascular: Denies: Chest Pain, Palpitations GI/Abdominal: Denies: Hematemesis, Hematochezia, Vomiting : Reports: No Symptoms Musculoskeletal: Reports: Back Pain Neurological: Denies: Dizziness, Headache Psychiatric: Reports: Anxiety ED EXAM, GENERAL - Physical Exam Exam: See Below Exam Limited By: Intoxication General Appearance: Alert, No Apparent Distress Head: Atraumatic Neck: Non-Tender Respiratory/Chest: No Respiratory Distress, Lungs Clear, Decreased Breath Sounds (Diffuse decreased breath sounds but no asymmetry, rales or rhonchi) Cardiovascular: Regular Rate, Rhythm. No: Tachycardia Extremities: No Pedal Edema Neurological: Alert, Oriented, Other (Fairly intoxicated) Psychiatric: Flat Affect Skin Exam: Warm, Dry Course - Re-Assessments/Exams Free Text/Narrative Re-Assessment/Exam: 04/01/20 18:56 1 L of O2 by nasal cannula was applied and it brought the patient's saturations into the mid 90s. CBC, CMP, EtOH and Covid testing was ordered as well as a two-view chest x-ray. A banana bag was started at 250 cc an hour. Unfortunately our local detox center is full. We also have no beds available in our hospital locally. 04/01/20 19:18 EtOH is 0.359, chest x-ray is normal and Covid is negative. Her oxygen saturations actually improved as she became more alert. A D-dimer was added to the testing. CBC and CMP were reassuring. Apparently she was hospitalized long-term at [facility] last summer with good success for at least a few months, our hope was to get her readmitted to [place] for detox and treatment. 04/01/20 22:09 Unfortunately there are no beds available at [place] or at [facility]. The patient can be admitted to [facility] tomorrow morning so we will have to spend the night here and have her medications brought in by family. She was given 900 mg of p.o. gabapentin which is her usual medication, and a CT angiogram of the chest was done which was negative. She was acting anxious and asking for Ativan but with her alcohol level at 0.36 this is not necessary. 04/02/20 06:38 At 1:30 AM the patient was very agitated, twitching and unable to sleep so was given 1 mg of IV Ativan. Care was turned over to Dr. Reynolds in the a.m. waiting for her transfer to [facility]. Departure - Departure Disposition: Home, Self-Care 01 Clinical Impression: Alcohol abuse Alcohol dependence Qualifiers: Substance use status: with intoxication Complication of substance-induced condition: uncomplicated Qualified Code(s): F10.220 - Alcohol dependence with intoxication, uncomplicated - Discharge Information Instructions: Alcohol Use Disorder Referrals: PCP,None [Primary Care Provider] - Forms: ED Department Discharge Additional Instructions: See your doctor for recheck margarita if you think you are going to need more Ativan. No drinking. No driving this morning. Sepsis Event Note (ED) - Evaluation Sepsis Screening Result: No Definite Risk <Omar Reynolds - Last Filed: 12/09/20 08:12> Course - Vital Signs Last Recorded V/S: Last Vital Signs Temp 36.0 C L 04/01/20 18:04 Pulse 107 H 04/02/20 06:00 Resp 20 04/02/20 06:00 BP 136/77 04/02/20 06:00 Pulse Ox 95 04/02/20 06:00 - Orders/Labs/Meds Orders: Active Orders 24 hr Category Date Time Status Chest 2V [CR] Routine Exams 04/01/20 18:30 Taken CORONAVIRUS COVID-19 PRABHAKAR [MOLEC] Stat Lab 04/01/20 18:41 Stop Req Iopamidol [Isovue-370 (76%)] Med 04/01/20 20:45 Active 100 ml IV . DIRECTED MVI, Adult with Vitamin K [Infuvite Adult] 10 ml Med 04/01/20 18:45 Active Thiamine [Vitamin B-1] 100 mg Folic Acid 1 mg Magnesium Sulfate [Magnesium Sulfate 50%] 3 gm Sodium Chloride 0.9% [Normal Saline] 1,000 ml IV ASDIRECTED Sodium Chloride 0.9% [Normal Saline] 100 ml Med 04/01/20 20:45 Active IV ASDIRECTED Sodium Chloride 0.9% [Saline Flush] Med 04/01/20 20:34 Active 10 ml FLUSH ASDIRECTED PRN Medication Orders Multivitamins/Minerals 10 ml/Thiamine HCl 100 mg/ Folic Acid 1 mg/ Magnesium Sulfate 3 gm/ Sodium Chloride 1,017.2 mls @ 250 mls/hr IV ASDIRECTED [facility], [facility] Last Admin: 04/01/20 19:09 Dose: 250 mls/hr Documented by: AIDAN Sodium Chloride (Normal Saline) 100 mls @ 3 mls/sec IV ASDIRECTED [facility], [facility] Last Admin: 04/01/20 22:56 Dose: 3 mls/sec Documented by: VENANCIOALY Iopamidol (Isovue-370 (76%)) 100 ml IV . DIRECTED [facility] Last Admin: 04/01/20 22:56 Dose: 100 ml Documented by: VENANCIOALY Sodium Chloride (Saline Flush) 10 ml FLUSH ASDIRECTED PRN PRN Reason: Keep Vein Open Last Admin: 04/01/20 22:57 Dose: 10 ml Documented by: AIDAN Labs: Laboratory Tests 04/01/20 04/01/20 04/01/20 Range/Units 18:30 18:38 18:38 WBC 7.0 (4.5-11.0) K/uL RBC 4.91 (3.30-5.50) M/uL Hgb 14.7 (12.0-15.0) g/dL Hct 46.2 (36.0-48.0) % MCV 94 (80-98) fL MCH 30 (27-31) pg MCHC 32 (32-36) % Plt Count 283 (150-400) K/uL Neut % (Auto) 49 (36-66) % Lymph % (Auto) 42 (24-44) % Forrest % (Auto) 7 H (2-6) % Eos % (Auto) 1 L (2-4) % Baso % (Auto) 1 (0-1) % D-Dimer, Quantitative (0.0-500.0) ng/mL Sodium 141 (140-148) mmol/L Potassium 4.6 (3.6-5.2) mmol/L Chloride 99 L (100-108) mmol/L Carbon Dioxide 31 (21-32) mmol/L Anion Gap 15.6 H (5.0-14.0) mmol/L BUN 10 (7-18) mg/dL Creatinine 0.6 (0.6-1.0) mg/dL Est Cr Clr Drug Dosing 75.26 mL/min Estimated GFR (MDRD) > 60 (>60) Glucose 81 (74-106) mg/dL Calcium 8.7 (8.5-10.1) mg/dL Total Bilirubin 0.3 (0.2-1.0) mg/dL AST 45 H D (15-37) U/L ALT 60 D (12-78) U/L Alkaline Phosphatase 59 (46-116) U/L Total Protein 7.4 (6.4-8.2) g/dL Albumin 4.0 (3.4-5.0) g/dL Globulin 3.4 (2.3-3.5) g/dL Albumin/Globulin Ratio 1.2 (1.2-2.2) Urine Color Yellow (YELLOW) Urine Appearance Clear (CLEAR) Urine pH 5.0 (5.0-8.0) Ur Specific Gibson <= 1.005 L (1.008-1.030) Urine Protein Negative (NEGATIVE) mg/dL Urine Glucose (UA) Negative (NEGATIVE) mg/dL Urine Ketones Negative (NEGATIVE) mg/dL Urine Occult Blood Negative (NEGATIVE) Urine Nitrite Negative (NEGATIVE) Urine Bilirubin Negative (NEGATIVE) Urine Urobilinogen 0.2 (0.2-1.0) EU/dL Ur Leukocyte Esterase Negative (NEGATIVE) Urine RBC Not seen (0-5) Urine WBC 0-5 (0-5) Ur Epithelial Cells Rare Amorphous Sediment Rare Urine Bacteria Not seen Urine Mucus Not seen Ethyl Alcohol mg/dL SARS CoV-2 RNA Rapid PRABHAKAR 04/01/20 04/01/20 04/01/20 Range/Units 18:38 18:47 19:13 WBC (4.5-11.0) K/uL RBC (3.30-5.50) M/uL Hgb (12.0-15.0) g/dL Hct (36.0-48.0) % MCV (80-98) fL MCH (27-31) pg MCHC (32-36) % Plt Count (150-400) K/uL Neut % (Auto) (36-66) % Lymph % (Auto) (24-44) % Forrest % (Auto) (2-6) % Eos % (Auto) (2-4) % Baso % (Auto) (0-1) % D-Dimer, Quantitative 1127.34 H (0.0-500.0) ng/mL Sodium (140-148) mmol/L Potassium (3.6-5.2) mmol/L Chloride (100-108) mmol/L Carbon Dioxide (21-32) mmol/L Anion Gap (5.0-14.0) mmol/L BUN (7-18) mg/dL Creatinine (0.6-1.0) mg/dL Est Cr Clr Drug Dosing mL/min Estimated GFR (MDRD) (>60) Glucose (74-106) mg/dL Calcium (8.5-10.1) mg/dL Total Bilirubin (0.2-1.0) mg/dL AST (15-37) U/L ALT (12-78) U/L Alkaline Phosphatase (46-116) U/L Total Protein (6.4-8.2) g/dL Albumin (3.4-5.0) g/dL Globulin (2.3-3.5) g/dL Albumin/Globulin Ratio (1.2-2.2) Urine Color (YELLOW) Urine Appearance (CLEAR) Urine pH (5.0-8.0) Ur Specific Gibson (1.008-1.030) Urine Protein (NEGATIVE) mg/dL Urine Glucose (UA) (NEGATIVE) mg/dL Urine Ketones (NEGATIVE) mg/dL Urine Occult Blood (NEGATIVE) Urine Nitrite (NEGATIVE) Urine Bilirubin (NEGATIVE) Urine Urobilinogen (0.2-1.0) EU/dL Ur Leukocyte Esterase (NEGATIVE) Urine RBC (0-5) Urine WBC (0-5) Ur Epithelial Cells Amorphous Sediment Urine Bacteria Urine Mucus Ethyl Alcohol 359 mg/dL SARS CoV-2 RNA Rapid PRABHAKAR Negative Meds: Medications Generic Name Dose Route Start Last Admin Trade Name Anu PRN Reason Stop Dose Admin Multivitamins/Minerals 10 ml/ 1,017.2 mls @ 250 mls/hr 04/01/20 18:45 04/01/20 19:09 Thiamine HCl 100 mg/ Folic IV 250 mls/hr Acid 1 mg/ Magnesium Sulfate 3 ASDIRECTED NIRAJ Administration gm/ Sodium Chloride Sodium Chloride 100 mls @ 3 mls/sec 04/01/20 20:45 04/01/20 22:56 Normal Saline IV 3 mls/sec ASDIRECTED NIRAJ Administration Iopamidol 100 ml 04/01/20 20:45 04/01/20 22:56 Isovue-370 (76%) IV 100 ml . DIRECTED NIRAJ Administration Sodium Chloride 10 ml 04/01/20 20:34 04/01/20 22:57 Saline Flush FLUSH 10 ml ASDIRECTED PRN Administration Keep Vein Open Discontinued Medications Generic Name Dose Route Start Last Admin Trade Name Anu PRN Reason Stop Dose Admin Gabapentin 900 mg 04/01/20 21:00 04/01/20 21:15 Neurontin PO 04/01/20 21:01 900 mg ONETIME ONE Administration Gabapentin 900 mg 04/01/20 20:32 04/01/20 22:56 Neurontin PO 04/01/20 20:33 Not Given ONETIME ONE Lorazepam 1 mg 04/02/20 01:51 04/02/20 01:53 Ativan IVPUSH 04/02/20 01:52 1 mg ONETIME ONE Administration Lorazepam 1 mg 04/02/20 07:50 04/02/20 07:55 Ativan PO 04/02/20 07:51 1 mg ONETIME ONE Administration Departure - Departure Time of Disposition: 08:11 Condition: Fair - Discharge Information *PRESCRIPTION DRUG MONITORING PROGRAM REVIEWED*: Not Applicable *COPY OF PRESCRIPTION DRUG MONITORING REPORT IN PATIENT SYEDA: Not Applicable Sepsis Event Note (ED) - Focused Exam Vital Signs: Vital Signs Pulse Resp BP Pulse Ox 04/02/20 06:00 107 H 20 136/77 95 04/02/20 00:04 95 21 H 109/60 91 L 04/01/20 20:30 90 20 97/48 L 87 L
[2020-04-01] MEDS ORDERED: Gabapentin 300 MG Cap PO ONE ×2 (20:32→21:00)
[2020-04-01] MEDS ORDERED: Sodium Chloride 0.9% 10 ML Syringe FLUSH PRN (20:34)
[2020-04-01] MEDS ORDERED: Iopamidol 755 Mg/ML 100 ML Bottle IV SCH (20:45)
[2020-04-01] MEDS ORDERED: Sodium Chloride 0.9% 100 ML IV SCH (20:45)
[2020-04-02] MEDS ORDERED: LORazepam 2 MG/ML SDV IVPUSH ONE (01:51)
[2020-04-02 06:01] VITALS: BP 136/77; PULSE 107
--- NOTE | 2020-04-02 07:18 | CRLCT ---
Final Report: INDICATION: Elevated D-dimer, hypoxia TECHNIQUE: CT chest pulmonary angiogram acquired with IV contrast. 100 cc Isovue 370 COMPARISON: None FINDINGS: Cardiovascular structures: Normal vascular enhancement of the pulmonary arteries, no sign of pulmonary embolism. Heart size is normal. No sign of aneurysm or dissection in the thoracic aorta. Mediastinum and darcie: No mass or adenopathy. Lungs: Clear. Pleura and pericardium: No effusions. Chest wall and axilla: No mass or adenopathy. Bones: No significant findings. Upper abdomen: Ataxia ptosis. Distended gallbladder. IMPRESSION: Unremarkable chest CT angiogram. Specifically, no pulmonary embolism, aortic dissection, or pneumonia. Distended gallbladder. Correlate with right upper quadrant pain. Please note that all CT scans at this facility use dose modulation, iterative reconstruction, and/or weight-based dosing when appropriate to reduce radiation dose to as low as reasonably achievable. Dictated by Joseph Bettencourt MD @ Apr 01 2020 9:57PM Signed by: Joseph Bettencourt MD @04/01/2020 9:57:50 PM (Electronic Signature) MTDD
[2020-04-02] MEDS ORDERED: LORazepam 1 MG Tab PO ONE (07:50)
--- NOTE | 2020-04-02 09:03 | CR ---
CHEST: 2 view CLINICAL HISTORY:Dyspnea COMPARISON:August 2018 FINDINGS: There is less than optimal inspiratory level. There is prominence of the lower lung markings which may be exaggerated. Heart size and pulmonary vascularity are normal. No definite infiltrates are seen. There are atherosclerotic changes in the aorta. IMPRESSION: Limited study due to poor inspiration. Mild prominence of the lung markings in the lower lung varghese is likely exaggerated
== END 2020-04-02 08:26 | disposition home or self-care (01) ==
LOC: JP.ED 17:59
DX: F10.220 Alcohol dependence with intoxication, uncomplicated (principal); I11.0 Hypertensive heart disease with heart failure; I50.9 Heart failure, unspecified; K21.9 Gastro-esophageal reflux disease without esophagitis; F41.9 Anxiety disorder, unspecified; F32.9 Major depressive disorder, single episode, unspecified; E03.9 Hypothyroidism, unspecified; E66.9 Obesity, unspecified; Y90.8 Blood alcohol level of 240 mg/100 ml or more; Z68.34 Body mass index [BMI] 34.0-34.9, adult; Z20.828 Contact with and (suspected) exposure to other viral communicable diseases; Z79.899 Other long term (current) drug therapy
CPT/HCPCS: 36415; 71046; 71275; 80053; 80307; 81001; 85025; 85379; 96365; 96366; 96375; 99284; 99285; A9270; J2060; J3411; J3475; J7030; Q9967; U0002; J3490

== ENCOUNTER 2020-06-20 10:50 | Emergency (ER) | payer MEDICARE ==
--- NOTE | 2020-06-20 11:24 | EDM.PDOCBH ---
ED HPI GENERAL MEDICAL PROBLEM - General Chief Complaint: Behavioral/Psych Stated Complaint: EVAL FOR [place] Time Seen by Provider: 06/20/20 11:18 Source of Information: Reports: Patient, Family, RN Notes Reviewed History Limitations: Reports: No Limitations - History of Present Illness INITIAL COMMENTS - FREE TEXT/NARRATIVE: 69-year-old female presents emergency department today complaint of screening for [facility] detoxification. She last used wine Gatorade and vodka this morning. She needs her Covid test and alcohol screen before she report to [facility] - Related Data Allergies Allergy/AdvReac Type Severity Reaction Status Date / Time No Known Allergies Allergy Verified 04/01/20 18:05 Home Meds: Home Meds DULoxetine [Cymbalta] 90 mg PO DAILY 02/27/16 [History] Gabapentin [Neurontin] 900 mg PO TID 02/27/16 [History] Levothyroxine 88 mcg PO DAILY 02/27/16 [History] traZODone 200 mg PO BEDTIME PRN 02/27/16 [History] Spironolactone [Aldactone] 25 mg PO DAILY 11/22/17 [History] Metoprolol Succinate 25 mg PO DAILY 07/29/18 [History] Past Medical History HEENT History: Reports: Cataract, Impaired Vision Cardiovascular History: Reports: Heart Failure, Hypertension Respiratory History: Reports: None Gastrointestinal History: Reports: GERD Genitourinary History: Reports: None [facility] SPECIALIST History: Reports: Musculoskeletal History: Reports: Back Pain, Chronic, Fibromyalgia, Neck Pain, Chronic Other Musculoskeletal History: torn rotator cuff Neurological History: Reports: Concussion, Seizure, Other (See Below) Other Neuro History: 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 Psychiatric History: Reports: Addiction, Anxiety, Depression, Panic Attack, PTSD Endocrine/Metabolic History: Reports: Hypothyroidism, Obesity/BMI 30+ Hematologic History: Reports: None Immunologic History: Reports: None Oncologic (Cancer) History: Reports: None Dermatologic History: Reports: None - Infectious Disease History Infectious Disease History: Reports: None - Past Surgical History Head Surgeries/Procedures: Reports: None HEENT Surgical History: Reports: Cataract Surgery Cardiovascular Surgical History: Reports: None GI Surgical History: Reports: Hernia, Abdominal Other GI Surgeries/Procedures: tummy tuck Female Surgical History: Reports: Cervical Conization Endocrine Surgical History: Reports: None Neurological Surgical History: Reports: Spinal Fusion Musculoskeletal Surgical History: Reports: Shoulder Surgery Oncologic Surgical History: Reports: None Dermatological Surgical History: Reports: None Social & Family History - Family History Family Medical History: No Pertinent Family History - Caffeine Use Caffeine Use: Reports: Coffee Other Caffeine Use: 3 cups per day Caffeine Use Comment: rare ED ROS GENERAL - Review of Systems Review Of Systems: See Below Constitutional: Reports: No Symptoms Respiratory: Reports: No Symptoms Cardiovascular: Reports: No Symptoms GI/Abdominal: Reports: No Symptoms ED EXAM, BEHAVIORAL HEALTH - Physical Exam Exam: See Below Exam Limited By: No Limitations General Appearance: Alert, WD/WN, No Apparent Distress Respiratory/Chest: No Respiratory Distress, Lungs Clear, Normal Breath Sounds, No Accessory Muscle Use, Chest Non-Tender Cardiovascular: Regular Rate, Rhythm, No Murmur COURSE, BEHAVIORAL HEALTH COMP - Course Vital Signs: Last Vital Signs Temp 97.3 F 06/20/20 11:39 Pulse 76 06/20/20 11:39 Resp 16 06/20/20 11:39 BP 129/54 L 06/20/20 11:39 Pulse Ox 94 L 06/20/20 11:39 Orders, Labs, Meds: Laboratory Tests 06/20/20 06/20/20 06/20/20 Range/Units 11:13 11:44 11:44 Urine Opiates Screen Negative (NEGATIVE) Ur Oxycodone Screen Negative (NEGATIVE) Urine Methadone Screen Negative (NEGATIVE) Ur Propoxyphene Screen Negative (NEGATIVE) Ur Barbiturates Screen Negative (NEGATIVE) Ur Tricyclics Screen Negative (NEGATIVE) Ur Phencyclidine Scrn Negative (NEGATIVE) Ur Amphetamine Screen Negative (NEGATIVE) U Methamphetamines Scrn Negative (NEGATIVE) Urine MDMA Screen Negative (NEGATIVE) U Benzodiazepines Scrn Negative (NEGATIVE) U Cocaine Metab Screen Negative (NEGATIVE) U Marijuana (THC) Screen Negative (NEGATIVE) Ethyl Alcohol 296 mg/dL SARS CoV-2 RNA Rapid PRABHAKAR Negative Departure - Departure Time of Disposition: 12:16 Disposition: DC/Tfer to Inpt Rehab Fac 62 Condition: Poor Clinical Impression: Acute alcohol intoxication Qualifiers: Complication of substance-induced condition: uncomplicated Qualified Code(s): F10.920 - Alcohol use, unspecified with intoxication, uncomplicated - Discharge Information Instructions: Alcohol Intoxication, [id number] Referrals: Joseph Muniz MD [Primary Care Provider] - Forms: ED Department Discharge Additional Instructions: Please report to [facility] for further treatment Sepsis Event Note (ED) - Focused Exam Vital Signs: Vital Signs Temp Pulse Resp BP Pulse Ox 06/20/20 11:39 97.3 F 76 16 129/54 L 94 L - Assessment/Plan Plan: Assessment Acuity = acute Site and laterality = alcohol intoxication and dependence Etiology = EtOH Manifestations = none Location of injury = Home Lab values = urine drug screen was negative alcohol was 296 Covid negative Plan Discharge to [facility] for further treatment detoxification This note was dictated using enavu voice recognition software please call with any questions on syntax or grammar.
[2020-06-20 11:46] VITALS: BP 129/54; PULSE 76
== END 2020-06-20 12:26 ==
LOC: JP.ED 10:50
DX: F10.120 Alcohol abuse with intoxication, uncomplicated (principal); I11.0 Hypertensive heart disease with heart failure; I50.9 Heart failure, unspecified; K21.9 Gastro-esophageal reflux disease without esophagitis; E03.9 Hypothyroidism, unspecified; E66.9 Obesity, unspecified; Z68.29 Body mass index [BMI] 29.0-29.9, adult; Z20.822 Contact with and (suspected) exposure to COVID-19; Y90.8 Blood alcohol level of 240 mg/100 ml or more
CPT/HCPCS: 36415; 80305; 80307; 99283; U0002

== ENCOUNTER 2020-08-25 11:16 | Emergency (ER) | payer MEDICARE ==
[2020-08-25 11:49] VITALS: BP 159/80; PULSE 72
--- NOTE | 2020-08-25 12:37 | EDM.PDOC ---
ED HPI GENERAL MEDICAL PROBLEM - General Chief Complaint: Gastrointestinal Problem Stated Complaint: SHARP PAIN ON CHEST / CONGESTED Time Seen by Provider: 08/25/20 12:25 Source of Information: Reports: Patient, Old Records, RN History Limitations: Reports: No Limitations - History of Present Illness INITIAL COMMENTS - FREE TEXT/NARRATIVE: 70 yo female called the clinic today to report that she had a small amt of bright red blood in her stool once on Tuesday. She was told to come to the ER. The problem has not recurred and she feels fine. Denies pain. She is on Plavix daily. Is on Metamucil daily. Onset: Sudden Onset Date: 08/23/20 Duration: Minutes:, Other (one occurrence) Location: Reports: Other (rectal) Quality: Reports: Other (no pain) Improves with: Reports: Other (? 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: Reports: Other (see below) (none) - Related Data Allergies Allergy/AdvReac Type Severity Reaction Status Date / Time No Known Allergies Allergy Verified 08/25/20 11:58 Home Meds: Home Meds DULoxetine [Cymbalta] 90 mg PO DAILY 02/27/16 [History] Gabapentin [Neurontin] 900 mg PO TID 02/27/16 [History] Levothyroxine 88 mcg PO DAILY 02/27/16 [History] traZODone 200 mg PO BEDTIME PRN 02/27/16 [History] Spironolactone [Aldactone] 25 mg PO DAILY 11/22/17 [History] Metoprolol Succinate 25 mg PO DAILY 07/29/18 [History] Past Medical History HEENT History: Reports: Cataract, Impaired Vision Cardiovascular History: Reports: Heart Failure, Hypertension Respiratory History: Reports: None Gastrointestinal History: Reports: GERD Genitourinary History: Reports: None 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: Musculoskeletal History: Reports: Back Pain, Chronic, Fibromyalgia, Neck Pain, Chronic Other Musculoskeletal History: torn rotator cuff Neurological History: Reports: Concussion, Seizure, Other (See Below) Other Neuro History: 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 Psychiatric History: Reports: Addiction, Anxiety, Depression, Panic Attack, PTSD Endocrine/Metabolic History: Reports: Hypothyroidism, Obesity/BMI 30+ Hematologic History: Reports: None Immunologic History: Reports: None Oncologic (Cancer) History: Reports: None Dermatologic History: Reports: None - Infectious Disease History Infectious Disease History: Reports: None - Past Surgical History Head Surgeries/Procedures: Reports: None HEENT Surgical History: Reports: Cataract Surgery GI Surgical History: Reports: Hernia, Abdominal Other GI Surgeries/Procedures: tummy tuck Female Surgical History: Reports: Cervical Conization Neurological Surgical History: Reports: Spinal Fusion Musculoskeletal Surgical History: Reports: Shoulder Surgery Social & Family History - Family History Family Medical History: No Pertinent Family History - Tobacco Use Tobacco Use Status *Q: Never Tobacco User - Caffeine Use Caffeine Use: Reports: Coffee Other Caffeine Use: 3 cups per day Caffeine Use Comment: rare - Recreational Drug Use Recreational Drug Use: No ED ROS GENERAL - Review of Systems Review Of Systems: See Below Constitutional: Reports: No Symptoms HEENT: Reports: No Symptoms Respiratory: Reports: No Symptoms Cardiovascular: Reports: No Symptoms GI/Abdominal: Reports: Bloody Stool, Hematochezia. Denies: Abdominal Pain, Black Stool, Constipation, Diarrhea, Hematemesis, Melena, Nausea, Vomiting Skin: Reports: No Symptoms ED EXAM, GI/ABD - Physical Exam Exam: See Below Exam Limited By: No Limitations General Appearance: Alert, WD/WN, No Apparent Distress Eyes: Bilateral: Normal Appearance Ears: Normal External Exam, Normal Canal, Hearing Grossly Normal Nose: Normal Inspection, No Blood Throat/Mouth: Normal Inspection, Normal Lips, Normal Oropharynx, Normal Voice, No Airway Compromise Head: Atraumatic, Normocephalic Neck: Normal Inspection Respiratory/Chest: No Respiratory Distress, Lungs Clear, Normal Breath Sounds, Chest Non-Tender Cardiovascular: Regular Rate, Rhythm, No Edema GI/Abdominal Exam: Normal Bowel Sounds, Soft, Non-Tender, No Distention, Other (anoscopy shows a small, superficial erosion at 4 pm). No: Distended, Guarding, Rigid, Rebound, Tender Rectal (Female) Exam: Rectal Fissure (small, superficial at 4pm). No: Black Stool, Bloody Stool, Heme - Stool, Heme + Stool, Hemorrhoids, Tenderness Extremities: Normal Inspection Course - Vital Signs Last Recorded V/S: Last Vital Signs Temp 36.3 C 08/25/20 11:57 Pulse 72 08/25/20 11:57 Resp 15 08/25/20 11:57 BP 159/80 H 08/25/20 11:57 Pulse Ox 95 08/25/20 11:57 Departure - Departure Time of Disposition: 12:41 Disposition: Home, Self-Care 01 Condition: Good Clinical Impression: Rectal fissure - Discharge Information *PRESCRIPTION DRUG MONITORING PROGRAM REVIEWED*: Not Applicable *COPY OF PRESCRIPTION DRUG MONITORING REPORT IN PATIENT SYEDA: Not Applicable Instructions: Anal Fissure, Adult, [id number] Referrals: Jamil Hollis MD [Primary Care Provider] - Forms: ED Department Discharge Additional Instructions: Increase your Metamucil by 50% to keep your stools softer. Recheck as needed. Sepsis Event Note (ED) - Evaluation Sepsis Screening Result: No Definite Risk - Focused Exam Vital Signs: Vital Signs Temp Pulse Resp BP Pulse Ox 08/25/20 11:57 36.3 C 72 15 159/80 H 95 08/25/20 11:48 36.3 C 72 15 159/80 H 95
== END 2020-08-25 12:45 | disposition home or self-care (01) ==
LOC: JP.ED 11:16
DX: K60.2 Anal fissure, unspecified (principal); I11.0 Hypertensive heart disease with heart failure; I50.9 Heart failure, unspecified; E03.9 Hypothyroidism, unspecified; E66.9 Obesity, unspecified; Z79.899 Other long term (current) drug therapy; Z68.31 Body mass index [BMI] 31.0-31.9, adult
CPT/HCPCS: 99284

== ENCOUNTER 2020-10-09 13:17 | Emergency (ER) | payer MEDICARE ==
[2020-10-09] MEDS ORDERED: Thiamine 100 MG Tab PO ONE (13:25)
--- NOTE | 2020-10-09 13:34 | EDM.PDOC ---
ED HPI GENERAL MEDICAL PROBLEM - General Chief Complaint: Drug or Alcohol Abuse Stated Complaint: DRINKING ABUSE Time Seen by Provider: 10/09/20 13:30 Source of Information: Reports: Patient, EMS, Old Records History Limitations: Reports: No Limitations - History of Present Illness INITIAL COMMENTS - FREE TEXT/NARRATIVE: 70 yo female was checking into [facility] and mentioned intermittent chest pains so was sent to the ER via EMS. Drank some ETOH through the night last night attempting to stop her shaking. Has had nausea and vomiting. Has no pain now. 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: Reports: Other (see below) (none) - Related Data Allergies Allergy/AdvReac Type Severity Reaction Status Date / Time No Known Allergies Allergy Verified 10/09/20 13:39 Home Meds: Home Meds DULoxetine [Cymbalta] 90 mg PO DAILY 02/27/16 [History] Gabapentin [Neurontin] 900 mg PO TID 02/27/16 [History] Levothyroxine 88 mcg PO DAILY 02/27/16 [History] traZODone 200 mg PO BEDTIME PRN 02/27/16 [History] Spironolactone [Aldactone] 25 mg PO DAILY 11/22/17 [History] Metoprolol Succinate 25 mg PO DAILY 07/29/18 [History] Omeprazole 20 mg PO DAILY 10/09/20 [History] Past Medical History HEENT History: Reports: Cataract, Impaired Vision Cardiovascular History: Reports: Heart Failure, Hypertension Respiratory History: Reports: None Gastrointestinal History: Reports: GERD Genitourinary History: Reports: 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: Musculoskeletal History: Reports: Back Pain, Chronic, Fibromyalgia, Neck Pain, Chronic Other Musculoskeletal History: torn rotator cuff Neurological History: Reports: Concussion, Seizure, Other (See Below) Other Neuro History: 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 Psychiatric History: Reports: Addiction, Anxiety, Depression, Panic Attack, PTSD Endocrine/Metabolic History: Reports: Hypothyroidism, Obesity/BMI 30+ Hematologic History: Reports: None Immunologic History: Reports: None Oncologic (Cancer) History: Reports: None Dermatologic History: Reports: None - Infectious Disease History Infectious Disease History: Reports: None - Past Surgical History Head Surgeries/Procedures: Reports: None HEENT Surgical History: Reports: Cataract Surgery Cardiovascular Surgical History: Reports: None GI Surgical History: Reports: Hernia, Abdominal Other GI Surgeries/Procedures: tummy tuck Female Surgical History: Reports: Cervical Conization Endocrine Surgical History: Reports: None Neurological Surgical History: Reports: Spinal Fusion Musculoskeletal Surgical History: Reports: Shoulder Surgery Oncologic Surgical History: Reports: None Dermatological Surgical History: Reports: None Social & Family History - Family History Family Medical History: No Pertinent Family History - Caffeine Use Caffeine Use: Reports: Coffee Other Caffeine Use: 3 cups per day Caffeine Use Comment: rare ED ROS GENERAL - Review of Systems Review Of Systems: See Below Constitutional: Reports: No Symptoms HEENT: Reports: No Symptoms Respiratory: Reports: Shortness of Breath (mild) Cardiovascular: Reports: Chest Pain Endocrine: Reports: No Symptoms GI/Abdominal: Reports: Diarrhea, Nausea, Vomiting. Denies: Black Stool, Bloody Stool, Constipation, Distension, Hematemesis, Hematochezia, Melena : Reports: No Symptoms Musculoskeletal: Reports: No Symptoms Skin: Reports: No Symptoms Neurological: Reports: No Symptoms ED EXAM, GENERAL - Physical Exam Exam: See Below Exam Limited By: No Limitations General Appearance: Alert, WD/WN, Mild Distress Eye Exam: Bilateral Eye: Conjunctival Injection Ears: Normal External Exam, Normal Canal, Hearing Grossly Normal Ear Exam: Bilateral Ear: Auricle Normal, Canal Normal Nose: Normal Inspection, No Blood Throat/Mouth: Normal Inspection, Normal Lips, Normal Oropharynx, Normal Voice, No Airway Compromise Head: Atraumatic, Normocephalic Neck: Normal Inspection Respiratory/Chest: No Respiratory Distress, Lungs Clear, Normal Breath Sounds, No Accessory Muscle Use, Chest Non-Tender. No: Respiratory Distress Cardiovascular: Regular Rate, Rhythm, No Edema, Tachycardia GI/Abdominal: Normal Bowel Sounds, Soft, Non-Tender, No Distention Back Exam: Normal Inspection. No: CVA Tenderness (R), CVA Tenderness (L) Extremities: Normal Inspection, Normal Range of Motion, Non-Tender, No Pedal Edema. No: Pedal Edema Neurological: Alert, Oriented, CN II-XII Intact, Normal Cognition, No Motor/Sensory Deficits, Other (course tremors noted) Psychiatric: Normal Affect, Normal Mood Skin Exam: Warm, Dry, Intact, Normal Color, No Rash Course - Vital Signs Text/Narrative:: EKG per EMS shows no ischemia or ectopy. Last Recorded V/S: Last Vital Signs Temp 36.2 C 10/09/20 13:38 Pulse 94 10/09/20 14:08 Resp 18 10/09/20 14:08 BP 130/67 10/09/20 14:08 Pulse Ox 95 10/09/20 14:08 - Orders/Labs/Meds Orders: Active Orders 24 hr Category Date Time Status EKG Documentation Completion [RC] ASDIRECTED Care 10/09/20 13:24 Active EKG 12 Lead [EK] Routine Ther 10/09/20 13:24 Stop Req Labs: Laboratory Tests 10/09/20 Range/Units 13:36 Sodium 138 L (140-148) mmol/L Potassium 3.6 (3.6-5.2) mmol/L Chloride 97 L (100-108) mmol/L Carbon Dioxide 28 (21-32) mmol/L Anion Gap 16.6 H (5.0-14.0) mmol/L BUN 10 (7-18) mg/dL Creatinine 0.9 (0.6-1.0) mg/dL Est Cr Clr Drug Dosing 53.83 mL/min Estimated GFR (MDRD) > 60 (>60) Glucose 120 H (74-106) mg/dL Calcium 9.0 (8.5-10.1) mg/dL Troponin I < 0.017 (0.000-0.056) ng/mL Meds: Medications Discontinued Medications Generic Name Dose Route Start Last Admin Trade Name Anu PRN Reason Stop Dose Admin Lorazepam 2 mg 10/09/20 13:38 10/09/20 14:07 Lorazepam 1 Mg Tab PO 10/09/20 13:39 2 mg ONETIME ONE Administration Ondansetron HCl 4 mg 10/09/20 13:38 10/09/20 14:05 Ondansetron 4 Mg/2 Ml Sdv IVPUSH 10/09/20 13:39 4 mg ONETIME ONE Administration Thiamine HCl 100 mg 10/09/20 13:25 10/09/20 14:07 Thiamine 100 Mg Tab PO 10/09/20 13:26 100 mg ONETIME ONE Administration - Re-Assessments/Exams Free Text/Narrative Re-Assessment/Exam: 10/09/20 14:22 Medically cleared to return to [facility]. 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 Sepsis Event Note (ED) - Evaluation Current Stage of Sepsis: Ruled Out (initial lactate normal, will continue to assess.) Reason for Ruling Out Sepsis: possible very early sepsis is a likelihood. Initial lactate is normal. Possible Source of Sepsis: Genitourinary - Focused Exam Vital Signs: Vital Signs Temp Pulse Resp BP Pulse Ox 10/09/20 14:08 94 18 130/67 95 10/09/20 13:38 36.2 C 105 H 18 139/73 96 Respiratory Effort Without Exertion: Other (see below) (normal) Heart Sounds: Other (see below) (normal) Capillary Refill, Detail: Less than/Equal to (</=) 2 Seconds Pulse Description: 2+ Normal Skin Exam (Focused Sepsis): Normal Turgor, Pale - My Orders Last 24 Hours: My Active Orders 10/09/20 13:24 EKG Documentation Completion [RC] ASDIRECTED EKG 12 Lead [EK] Routine - Assessment/Plan Last 24 Hours: My Active Orders 10/09/20 13:24 EKG Documentation Completion [RC] ASDIRECTED EKG 12 Lead [EK] Routine
[2020-10-09] MEDS ORDERED: LORazepam 1 MG Tab PO ONE (13:38)
[2020-10-09] MEDS ORDERED: Ondansetron 4 MG/2 ML SDV IVPUSH ONE (13:38)
[2020-10-09 14:08] VITALS: BP 130/67; PULSE 94
== END 2020-10-09 15:26 | disposition other institution (70) ==
LOC: JP.ED 13:17
DX: R07.89 Other chest pain (principal); F10.232 Alcohol dependence with withdrawal with perceptual disturbance; I11.0 Hypertensive heart disease with heart failure; I50.9 Heart failure, unspecified; K21.9 Gastro-esophageal reflux disease without esophagitis; E03.9 Hypothyroidism, unspecified; E66.9 Obesity, unspecified; Z68.30 Body mass index [BMI] 30.0-30.9, adult; Z79.899 Other long term (current) drug therapy
CPT/HCPCS: 36415; 80048; 84484; 93010; 96374; 99284; 99285; A9270; J2405

== ENCOUNTER 2020-10-24 07:34 | Emergency (ER) | payer MEDICARE ==
[2020-10-24] MEDS ORDERED: Thiamine 100 MG Tab PO ONE (07:36)
--- NOTE | 2020-10-24 08:01 | EDM.PDOCBH ---
ED HPI GENERAL MEDICAL PROBLEM - General Chief Complaint: Drug or Alcohol Abuse Stated Complaint: [facility] Time Seen by Provider: 10/24/20 07:50 Source of Information: Reports: Patient, EMS, Old Records History Limitations: Reports: No Limitations - History of Present Illness INITIAL COMMENTS - FREE TEXT/NARRATIVE: 70 yo female alcoholic arrives via EMS from her home in [place], [place] requesting medical clearance for Samantha Person. She was already there in the past 2 weeks. Says she awoke in the night last night about 2:30 am and started drinking. Denies any hx of tobacco use. Has no current respiratory complaints. 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 (see below) (none) Lower Back Pain Score (Numeric/FACES): 8 - Related Data Allergies Allergy/AdvReac Type Severity Reaction Status Date / Time No Known Allergies Allergy Verified 10/09/20 13:39 Home Meds: Home Meds DULoxetine [Cymbalta] 120 mg PO DAILY 02/27/16 [History] Gabapentin [Neurontin] 900 mg PO TID 02/27/16 [History] Levothyroxine 88 mcg PO DAILY 02/27/16 [History] traZODone 200 mg PO BEDTIME PRN 02/27/16 [History] Spironolactone [Aldactone] 25 mg PO DAILY 11/22/17 [History] Metoprolol Succinate 25 mg PO DAILY 07/29/18 [History] Omeprazole 20 mg PO DAILY 10/09/20 [History] Cyclobenzaprine [Flexeril] 10 mg PO TID PRN 10/24/20 [History] Desvenlafaxine [Desvenlafaxine ER] 100 mg PO DAILY 10/24/20 [History] Glucosam/Chond-Msm1/C/Jakub/Bor [Rwckgyd-Ixhpg-QGQ Complex Cplt] 1 each PO DAILY 10/24/20 [History] Naproxen Sodium [Aleve] 220 mg PO BID 10/24/20 [History] Psyllium Husk [Metamucil] 0.4 gm PO DAILY 10/24/20 [History] Past Medical History HEENT History: Reports: Cataract, Impaired Vision Cardiovascular History: Reports: Heart Failure, Hypertension Respiratory History: Reports: None Gastrointestinal History: Reports: GERD Genitourinary History: Reports: None 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: Musculoskeletal History: Reports: Back Pain, Chronic, Fibromyalgia, Neck Pain, Chronic Other Musculoskeletal History: torn rotator cuff Neurological History: Reports: Concussion, Seizure, Other (See Below) Other Neuro History: 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 Psychiatric History: Reports: Addiction, Anxiety, Depression, Panic Attack, PTSD Endocrine/Metabolic History: Reports: Hypothyroidism, Obesity/BMI 30+ Hematologic History: Reports: None Immunologic History: Reports: None Oncologic (Cancer) History: Reports: None Dermatologic History: Reports: None - Infectious Disease History Infectious Disease History: Reports: Chicken Pox - Past Surgical History Head Surgeries/Procedures: Reports: None HEENT Surgical History: Reports: Cataract Surgery Cardiovascular Surgical History: Reports: None GI Surgical History: Reports: Hernia, Abdominal Other GI Surgeries/Procedures: tummy tuck Female Surgical History: Reports: Cervical Conization Endocrine Surgical History: Reports: None Neurological Surgical History: Reports: Spinal Fusion Musculoskeletal Surgical History: Reports: Shoulder Surgery Oncologic Surgical History: Reports: None Dermatological Surgical History: Reports: None Social & Family History - Family History Family Medical History: No Pertinent Family History - Tobacco Use Tobacco Use Status *Q: Never Tobacco User - Caffeine Use Caffeine Use: Reports: None Other Caffeine Use: 3 cups per day Caffeine Use Comment: rare - Alcohol Use Days Per Week of Alcohol Use: 7 Number of Drinks Per Day: 0 Total Drinks Per Week: 0 Date of Last Drink: 10/24/20 Time of Last Drink: 04:00 - Recreational Drug Use Recreational Drug Use: No ED ROS GENERAL - Review of Systems Review Of Systems: See Below Constitutional: Reports: Malaise HEENT: Reports: No Symptoms Respiratory: Reports: No Symptoms Cardiovascular: Reports: No Symptoms GI/Abdominal: Reports: No Symptoms : Reports: No Symptoms Musculoskeletal: Reports: No Symptoms Skin: Reports: No Symptoms Neurological: Reports: No Symptoms Psychiatric: Reports: No Symptoms ED EXAM, BEHAVIORAL HEALTH - Physical Exam Exam: See Below Exam Limited By: No Limitations General Appearance: Alert, WD/WN, No Apparent Distress Eye Exam: Bilateral Eye: Conjunctival Injection Ears: Normal External Exam, Normal Canal, Hearing Grossly Normal Nose: Normal Inspection, No Blood Throat/Mouth: Normal Inspection, Normal Lips, Normal Oropharynx, Normal Voice, No Airway Compromise Head: Atraumatic, Normocephalic Neck: Normal Inspection Respiratory/Chest: No Respiratory Distress, Lungs Clear, Normal Breath Sounds, No Accessory Muscle Use Cardiovascular: Regular Rate, Rhythm, No Edema GI/Abdominal: Normal Bowel Sounds, Soft, Non-Tender, No Distention Extremities: Normal Inspection, Normal Range of Motion, No Pedal Edema Neurological: Alert, Normal Mood/Affect, CN II-XII Intact, No Motor/Sensory Deficits, Oriented x 3 Psychiatric: Alert, Normal Affect, Normal Cognition, Normal Mood, Oriented Skin Exam: Warm, Dry, Intact, Normal color, No rash COURSE, BEHAVIORAL HEALTH COMP - Course Vital Signs: Last Vital Signs Temp 36.6 C 10/24/20 07:36 Pulse 84 10/24/20 10:01 Resp 18 10/24/20 07:36 BP 116/59 L 10/24/20 10:01 Pulse Ox 90 L 10/24/20 10:01 Orders, Labs, Meds: Active Orders 24 hr Category Date Time Status Iopamidol [Isovue-370 (76%)] Med 10/24/20 10:30 Active 85 ml IV . DIRECTED Sodium Chloride 0.9% [Saline Flush] Med 10/24/20 10:23 Active 10 ml FLUSH ONETIME PRN Medication Orders Iopamidol (Iopamidol 755 Mg/Ml 100 Ml Bottle) 85 ml IV . DIRECTED [facility] Last Admin: 10/24/20 10:42 Dose: 85 ml Documented by: SHAHRIAR Sodium Chloride (Sodium Chloride 0.9% 10 Ml Syringe) 10 ml FLUSH ONETIME PRN PRN Reason: PER RADIOLOGY PROTOCOL Last Admin: 10/24/20 10:42 Dose: 10 ml Documented by: SHAHRIAR Laboratory Tests 10/24/20 10/24/20 10/24/20 Range/Units 07:45 07:45 07:45 WBC 6.5 (4.5-11.0) K/uL RBC 4.59 (3.30-5.50) M/uL Hgb 14.6 D (12.0-15.0) g/dL Hct 45.1 (36.0-48.0) % MCV 98 (80-98) fL MCH 32 H (27-31) pg MCHC 32 (32-36) % Plt Count 258 (150-400) K/uL D-Dimer, Quantitative (0.0-500.0) ng/mL Puncture Site ABG pH (7.350-7.450) ABG pCO2 (35.0-42.0) mmHg ABG pO2 (75.0-100.0) mmHg ABG HCO3 (22.0-26.0) mmol/L ABG Total CO2 (21.0-25.0) mmol/L ABG O2 Saturation (95.0-98.0) % ABG O2 Content (15.0-23.0) %vol ABG Base Excess mm/L ABG Hemoglobin (12.0-16.0) g/dL ABG Oxyhemoglobin % ABG Carboxyhemoglobin (0.0-1.6) % ABG Methemoglobin % Juan Test O2 Delivery Device Sodium 145 (140-148) mmol/L Potassium 4.4 (3.6-5.2) mmol/L Chloride 104 (100-108) mmol/L Carbon Dioxide 33 H (21-32) mmol/L Anion Gap 12.4 (5.0-14.0) mmol/L BUN 9 (7-18) mg/dL Creatinine 0.6 (0.6-1.0) mg/dL Est Cr Clr Drug Dosing 87.27 mL/min Estimated GFR (MDRD) > 60 (>60) Glucose 100 (74-106) mg/dL Calcium 8.7 (8.5-10.1) mg/dL TSH, Ultra Sensitive (0.358-3.740) uIU/mL Ethyl Alcohol 224 mg/dL SARS CoV-2 RNA Rapid PRABHAKAR 10/24/20 10/24/20 10/24/20 Range/Units 07:45 07:57 09:25 WBC (4.5-11.0) K/uL RBC (3.30-5.50) M/uL Hgb (12.0-15.0) g/dL Hct (36.0-48.0) % MCV (80-98) fL MCH (27-31) pg MCHC (32-36) % Plt Count (150-400) K/uL D-Dimer, Quantitative 738.42 H (0.0-500.0) ng/mL Puncture Site Left radial ABG pH 7.387 (7.350-7.450) ABG pCO2 51.3 H (35.0-42.0) mmHg ABG pO2 58.9 L (75.0-100.0) mmHg ABG HCO3 30.2 H (22.0-26.0) mmol/L ABG Total CO2 26.6 H (21.0-25.0) mmol/L ABG O2 Saturation 88.3 L (95.0-98.0) % ABG O2 Content 17.4 (15.0-23.0) %vol ABG Base Excess 4.4 mm/L ABG Hemoglobin 14.2 (12.0-16.0) g/dL ABG Oxyhemoglobin 87.0 % ABG Carboxyhemoglobin 0.8 (0.0-1.6) % ABG Methemoglobin 0.7 % Juan Test Passed O2 Delivery Device Room air Sodium (140-148) mmol/L Potassium (3.6-5.2) mmol/L Chloride (100-108) mmol/L Carbon Dioxide (21-32) mmol/L Anion Gap (5.0-14.0) mmol/L BUN (7-18) mg/dL Creatinine (0.6-1.0) mg/dL Est Cr Clr Drug Dosing mL/min Estimated GFR (MDRD) (>60) Glucose (74-106) mg/dL Calcium (8.5-10.1) mg/dL TSH, Ultra Sensitive 2.280 (0.358-3.740) uIU/mL Ethyl Alcohol mg/dL SARS CoV-2 RNA Rapid PRABHAKAR 10/24/20 Range/Units 09:32 WBC (4.5-11.0) K/uL RBC (3.30-5.50) M/uL Hgb (12.0-15.0) g/dL Hct (36.0-48.0) % MCV (80-98) fL MCH (27-31) pg MCHC (32-36) % Plt Count (150-400) K/uL D-Dimer, Quantitative (0.0-500.0) ng/mL Puncture Site ABG pH (7.350-7.450) ABG pCO2 (35.0-42.0) mmHg ABG pO2 (75.0-100.0) mmHg ABG HCO3 (22.0-26.0) mmol/L ABG Total CO2 (21.0-25.0) mmol/L ABG O2 Saturation (95.0-98.0) % ABG O2 Content (15.0-23.0) %vol ABG Base Excess mm/L ABG Hemoglobin (12.0-16.0) g/dL ABG Oxyhemoglobin % ABG Carboxyhemoglobin (0.0-1.6) % ABG Methemoglobin % Juan Test O2 Delivery Device Sodium (140-148) mmol/L Potassium (3.6-5.2) mmol/L Chloride (100-108) mmol/L Carbon Dioxide (21-32) mmol/L Anion Gap (5.0-14.0) mmol/L BUN (7-18) mg/dL Creatinine (0.6-1.0) mg/dL Est Cr Clr Drug Dosing mL/min Estimated GFR (MDRD) (>60) Glucose (74-106) mg/dL Calcium (8.5-10.1) mg/dL TSH, Ultra Sensitive (0.358-3.740) uIU/mL Ethyl Alcohol mg/dL SARS CoV-2 RNA Rapid PRABHAKAR Negative Medications Generic Name Dose Route Start Last Admin Trade Name Freq PRN Reason Stop Dose Admin Iopamidol 85 ml 10/24/20 10:30 10/24/20 10:42 Iopamidol 755 Mg/Ml 100 Ml Bottle IV 85 ml . DIRECTED NIRAJ Administration Sodium Chloride 10 ml 10/24/20 10:23 10/24/20 10:42 Sodium Chloride 0.9% 10 Ml Syringe FLUSH 10 ml ONETIME PRN Administration PER RADIOLOGY PROTOCOL Discontinued Medications Generic Name Dose Route Start Last Admin Trade Name Freq PRN Reason Stop Dose Admin Sodium Chloride 90 mls @ 3 mls/sec 10/24/20 10:23 10/24/20 10:42 Normal Saline IV 10/24/20 10:24 3 mls/sec ONETIME ONE Administration Thiamine HCl 100 mg 10/24/20 07:36 10/24/20 07:54 Thiamine 100 Mg Tab PO 10/24/20 07:37 100 mg ONETIME ONE Administration Re-Assessment/Re-Exam Date: 10/24/20 (The nearest detox bed is [facility], she doesn't want to go there. Will give an Rx for Ativan and discharge. ) Departure - Departure Time of Disposition: 12:55 Disposition: Home, Self-Care 01 Condition: Fair Clinical Impression: Alcohol dependence Qualifiers: Substance use status: with intoxication Complication of substance-induced condition: uncomplicated Qualified Code(s): F10.220 - Alcohol dependence with intoxication, uncomplicated Alcohol intoxication Qualifiers: Complication of substance-induced condition: with unspecified complication Qualified Code(s): F10.929 - Alcohol use, unspecified with intoxication, unspecified - Discharge Information *PRESCRIPTION DRUG MONITORING PROGRAM REVIEWED*: Not Applicable *COPY OF PRESCRIPTION DRUG MONITORING REPORT IN PATIENT SYEDA: Not Applicable Instructions: Alcohol Intoxication, Typv-[id number], Alcohol Abuse and Dependence Information, Adult Referrals: PCP,None [Primary Care Provider] - Forms: ED Department Discharge Additional Instructions: No alcohol. Take lorazepam as needed for signs of withdrawal. Follow up with you r doctor early next week. No driving today. Sepsis Event Note (ED) - Evaluation Sepsis Screening Result: No Definite Risk - Focused Exam Vital Signs: Vital Signs Temp Pulse Resp BP Pulse Ox 10/24/20 10:01 84 116/59 L 90 L 10/24/20 09:31 79 117/57 L 88 L 10/24/20 09:20 82 123/55 L 90 L 10/24/20 09:01 100/68 10/24/20 08:32 75 106/70 89 L 10/24/20 08:01 81 98/58 L 87 L 10/24/20 07:36 36.6 C 87 18 105/40 L 89 L 10/24/20 07:35 36.6 C 87 18 105/40 L 89 L - My Orders Last 24 Hours: My Active Orders 10/24/20 10:23 Sodium Chloride 0.9% [Saline Flush] 10 ml FLUSH ONETIME PRN 10/24/20 10:30 Iopamidol [Isovue-370 (76%)] 85 ml IV . DIRECTED - Assessment/Plan Last 24 Hours: My Active Orders 10/24/20 10:23 Sodium Chloride 0.9% [Saline Flush] 10 ml FLUSH ONETIME PRN 10/24/20 10:30 Iopamidol [Isovue-370 (76%)] 85 ml IV . DIRECTED
[2020-10-24] MEDS ORDERED: Sodium Chloride 0.9% 90 ML IV ONE (10:23)
[2020-10-24] MEDS ORDERED: Sodium Chloride 0.9% 10 ML Syringe FLUSH PRN (10:23)
--- NOTE | 2020-10-24 10:25 | CR ---
CHEST: 2 view CLINICAL HISTORY:Hypoxia COMPARISON:2020 FINDINGS: The heart size, pulmonary vascularity and hilar structures are normal. No infiltrate effusion or pneumothorax is seen. IMPRESSION: No acute cardiopulmonary process.
[2020-10-24 10:26] VITALS: BP 116/59; PULSE 84
[2020-10-24] MEDS ORDERED: Iopamidol 755 Mg/ML 100 ML Bottle IV SCH (10:30)
--- NOTE | 2020-10-24 11:01 | CT ---
Ang Chest CLINICAL HISTORY: Elevated d-dimer, hypoxia TECHNIQUE: Thin section axial contiguous tomographic sections were taken through the chest after bolus IV iodinated contrast administration. Coronal and sagittal images were reconstructed. Auto dosage reduction and iterative reconstruction techniques employed. FINDINGS: There is some breathing motion artifact. There is some minimal streaky scarring or atelectasis in the right upper lobe and both lung bases. No pulmonary mass or infiltrate is seen. There are no pleural effusions. No mediastinal mass or suspicious lymphadenopathy is seen. There are no filling defects identified in the pulmonary arteries. There is some atheromatous and widening of the aortic arch and proximal brachycephalic vessels. There is no evidence of aneurysm or dissection. IMPRESSION: No evidence of pulmonary embolus No acute cardiac pulmonary process
[2020-10-24] MEDS ORDERED: LORazepam 1 MG Tab PO ONE (12:41)
== END 2020-10-24 13:40 | disposition home or self-care (01) ==
LOC: JP.ED 07:34
DX: F10.220 Alcohol dependence with intoxication, uncomplicated (principal); Y90.7 Blood alcohol level of 200-239 mg/100 ml; K21.9 Gastro-esophageal reflux disease without esophagitis; I11.0 Hypertensive heart disease with heart failure; I50.9 Heart failure, unspecified; E03.9 Hypothyroidism, unspecified; E66.9 Obesity, unspecified; Z20.822 Contact with and (suspected) exposure to COVID-19; Z68.30 Body mass index [BMI] 30.0-30.9, adult; Z79.899 Other long term (current) drug therapy
CPT/HCPCS: 36415; 36600; 71046; 71275; 80048; 80307; 82803; 84443; 85027; 85379; 99284; A9270; Q9967; U0002

== ENCOUNTER 2021-03-30 15:56 | Emergency (ER) | payer MEDICARE ==
[2021-03-30 16:27] VITALS: BP 138/88; PULSE 108
--- NOTE | 2021-03-30 16:52 | EDM.PDOCBH ---
ED HPI GENERAL MEDICAL PROBLEM - General Chief Complaint: Drug or Alcohol Abuse Stated Complaint: EVAL Time Seen by Provider: 03/30/21 16:30 Source of Information: Reports: Patient, Family History Limitations: Reports: Intoxication - History of Present Illness INITIAL COMMENTS - FREE TEXT/NARRATIVE: 70-year-old female who has had numerous ER visits for chronic alcoholism, numer ous detox visits to [facility] presents again for detox. She claims she has been drinking for several weeks after a period of sobriety. Just is tired of drinking and wants to sober up again. No nausea or vomiting, no other complaints. Onset: Unknown/Unsure Duration: Week(s): (Has been drinking for several weeks) Associated Symptoms: Reports: Malaise, Weakness. Denies: Confusion, Chest Pain, Fever/Chills, Nausea/Vomiting, Shortness of Breath - Related Data Allergies Allergy/AdvReac Type Severity Reaction Status Date / Time No Known Allergies Allergy Verified 03/30/21 16:19 Home Meds: Home Meds DULoxetine [Cymbalta] 120 mg PO DAILY 02/27/16 [History] Gabapentin [Neurontin] 900 mg PO TID 02/27/16 [History] Levothyroxine 88 mcg PO DAILY 02/27/16 [History] traZODone 200 mg PO BEDTIME PRN 02/27/16 [History] Spironolactone [Aldactone] 25 mg PO DAILY 11/22/17 [History] Metoprolol Succinate 25 mg PO DAILY 07/29/18 [History] Omeprazole 20 mg PO DAILY 10/09/20 [History] Cyclobenzaprine [Flexeril] 10 mg PO TID PRN 10/24/20 [History] Desvenlafaxine [Desvenlafaxine ER] 100 mg PO DAILY 10/24/20 [History] Glucosam/Chond-Msm1/C/Jakub/Bor [Cnzefik-Wypcd-VXV Complex Cplt] 1 each PO DAILY 10/24/20 [History] LORazepam [Ativan] 1 mg PO QID PRN #18 tab 10/24/20 [Rx] Naproxen Sodium [Aleve] 220 mg PO BID 10/24/20 [History] Psyllium Husk [Metamucil] 0.4 gm PO DAILY 10/24/20 [History] Past Medical History HEENT History: Reports: Cataract, Impaired Vision Cardiovascular History: Reports: Heart Failure, Hypertension Respiratory History: Reports: None Gastrointestinal History: Reports: GERD Genitourinary History: Reports: None 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: Musculoskeletal History: Reports: Back Pain, Chronic, Fibromyalgia, Neck Pain, Chronic Other Musculoskeletal History: torn rotator cuff Neurological History: Reports: Concussion, Seizure, Other (See Below) Other Neuro History: 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 Psychiatric History: Reports: Addiction, Anxiety, Depression, Panic Attack, PTSD Endocrine/Metabolic History: Reports: Hypothyroidism, Obesity/BMI 30+ Hematologic History: Reports: None Immunologic History: Reports: None Oncologic (Cancer) History: Reports: None Dermatologic History: Reports: None - Infectious Disease History Infectious Disease History: Reports: Chicken Pox - Past Surgical History Head Surgeries/Procedures: Reports: None HEENT Surgical History: Reports: Cataract Surgery Cardiovascular Surgical History: Reports: None GI Surgical History: Reports: Hernia, Abdominal Other GI Surgeries/Procedures: tummy tuck Female Surgical History: Reports: Cervical Conization Endocrine Surgical History: Reports: None Neurological Surgical History: Reports: Spinal Fusion Musculoskeletal Surgical History: Reports: Shoulder Surgery Oncologic Surgical History: Reports: None Dermatological Surgical History: Reports: None Social & Family History - Family History Family Medical History: No Pertinent Family History - Tobacco Use Tobacco Use Status *Q: Never Tobacco User - Caffeine Use Caffeine Use: Reports: None Other Caffeine Use: 3 cups per day Caffeine Use Comment: rare - Recreational Drug Use Recreational Drug Use: Yes Recreational Drug Type: Reports: Marijuana/Hashish Recreational Drug Use Frequency: Weekly ED ROS GENERAL - Review of Systems Review Of Systems: See Below Constitutional: Reports: Malaise. Denies: Fever, Chills HEENT: Reports: No Symptoms Respiratory: Reports: No Symptoms GI/Abdominal: Reports: No Symptoms : Reports: No Symptoms Skin: Reports: No Symptoms Neurological: Reports: Weakness ED EXAM, BEHAVIORAL HEALTH - Physical Exam Exam: See Below Exam Limited By: Intoxication General Appearance: Alert, No Apparent Distress, Other (Somewhat slurred speech, very cooperative) Eye Exam: Bilateral Eye: Normal Inspection Head: Atraumatic, Normocephalic Neck: Supple, Non-Tender Respiratory/Chest: Lungs Clear Cardiovascular: Regular Rate, Rhythm, Tachycardia (Mild tachycardia) GI/Abdominal: Non-Tender Extremities: Normal Inspection Neurological: Alert, No Motor/Sensory Deficits, Oriented x 3 Psychiatric: Flat Affect, Other (Patient is intoxicated but cooperative) Skin Exam: Warm, Dry COURSE, BEHAVIORAL HEALTH COMP - Course Vital Signs: Last Vital Signs Temp 97.3 F 03/30/21 16:27 Pulse 108 H 03/30/21 16:27 Resp 16 03/30/21 16:27 BP 138/88 03/30/21 16:27 Pulse Ox 92 L 03/30/21 16:27 Orders, Labs, Meds: Laboratory Tests 03/30/21 03/30/21 03/30/21 Range/Units 16:36 16:36 16:36 WBC 10.2 (4.5-11.0) K/uL RBC 5.26 (3.30-5.50) M/uL Hgb 16.0 H (12.0-15.0) g/dL Hct 48.1 H (36.0-48.0) % MCV 91 (80-98) fL MCH 30 (27-31) pg MCHC 33 (32-36) % Plt Count 331 (150-400) K/uL Neut % (Auto) 60.0 (36-66) % Lymph % (Auto) 33.9 (24-44) % [place] % (Auto) 5.2 (2-6) % Eos % (Auto) 0.5 L (2-4) % Baso % (Auto) 0.4 (0-1) % Sodium 139 L (140-148) mmol/L Potassium 4.0 (3.6-5.2) mmol/L Chloride 99 L (100-108) mmol/L Carbon Dioxide 29 (21-32) mmol/L Anion Gap 15.0 H (5.0-14.0) mmol/L BUN 8 (7-18) mg/dL Creatinine 0.6 (0.6-1.0) mg/dL Est Cr Clr Drug Dosing 77.49 mL/min Estimated GFR (MDRD) > 60 (>60) Glucose 72 L (74-106) mg/dL Calcium 9.2 (8.5-10.1) mg/dL Urine Opiates Screen Negative (NEGATIVE) Ur Oxycodone Screen Negative (NEGATIVE) Urine Methadone Screen Negative (NEGATIVE) Ur Propoxyphene Screen Negative (NEGATIVE) Ur Barbiturates Screen Negative (NEGATIVE) Ur Tricyclics Screen Negative (NEGATIVE) Ur Phencyclidine Scrn Negative (NEGATIVE) Ur Amphetamine Screen Negative (NEGATIVE) U Methamphetamines Scrn Negative (NEGATIVE) Urine MDMA Screen Negative (NEGATIVE) U Benzodiazepines Scrn Negative (NEGATIVE) U Cocaine Metab Screen Negative (NEGATIVE) U Marijuana (THC) Screen Presumptive positive H (NEGATIVE) Ethyl Alcohol mg/dL SARS CoV-2 RNA Rapid PRABHAKAR 03/30/21 03/30/21 Range/Units 16:36 16:44 WBC (4.5-11.0) K/uL RBC (3.30-5.50) M/uL Hgb (12.0-15.0) g/dL Hct (36.0-48.0) % MCV (80-98) fL MCH (27-31) pg MCHC (32-36) % Plt Count (150-400) K/uL Neut % (Auto) (36-66) % Lymph % (Auto) (24-44) % [place] % (Auto) (2-6) % Eos % (Auto) (2-4) % Baso % (Auto) (0-1) % Sodium (140-148) mmol/L Potassium (3.6-5.2) mmol/L Chloride (100-108) mmol/L Carbon Dioxide (21-32) mmol/L Anion Gap (5.0-14.0) mmol/L BUN (7-18) mg/dL Creatinine (0.6-1.0) mg/dL Est Cr Clr Drug Dosing mL/min Estimated GFR (MDRD) (>60) Glucose (74-106) mg/dL Calcium (8.5-10.1) mg/dL Urine Opiates Screen (NEGATIVE) Ur Oxycodone Screen (NEGATIVE) Urine Methadone Screen (NEGATIVE) Ur Propoxyphene Screen (NEGATIVE) Ur Barbiturates Screen (NEGATIVE) Ur Tricyclics Screen (NEGATIVE) Ur Phencyclidine Scrn (NEGATIVE) Ur Amphetamine Screen (NEGATIVE) U Methamphetamines Scrn (NEGATIVE) Urine MDMA Screen (NEGATIVE) U Benzodiazepines Scrn (NEGATIVE) U Cocaine Metab Screen (NEGATIVE) U Marijuana (THC) Screen (NEGATIVE) Ethyl Alcohol 283 mg/dL SARS CoV-2 RNA Rapid PRABHAKAR Negative Re-Assessment/Re-Exam: CBC, BMP, EtOH and urine drug screen was ordered. Patient is already called [facility] and a bed is being saved for the patient. EtOH is 0.283, other labs were stable. Patient is cleared for detox and will be transferred by her significant other. Departure - Departure Time of Disposition: 17:14 Disposition: DC/Tfer to Other 70 Clinical Impression: Alcohol abuse Acute alcohol intoxication Qualifiers: Complication of substance-induced condition: uncomplicated Qualified Code(s): F10.920 - Alcohol use, unspecified with intoxication, uncomplicated - Discharge Information Instructions: Alcohol Abuse and Dependence Information, Adult Referrals: Van Perez MD [Primary Care Provider] - Forms: ED Department Discharge Care Plan Goals: Go directly out to [facility] to be admitted for treatment and observation of alcohol abuse and possible treatment for withdrawal. Sepsis Event Note (ED) - Evaluation Sepsis Screening Result: No Definite Risk - Focused Exam Vital Signs: Vital Signs Temp Pulse Resp BP Pulse Ox 03/30/21 16:27 97.3 F 108 H 16 138/88 92 L 03/30/21 16:17 97.3 F 108 H 16 138/88 92 L
== END 2021-03-30 17:20 | disposition other institution (70) ==
LOC: JP.ED 15:56
DX: F10.129 Alcohol abuse with intoxication, unspecified (principal); K21.9 Gastro-esophageal reflux disease without esophagitis; I11.0 Hypertensive heart disease with heart failure; I50.9 Heart failure, unspecified; E03.9 Hypothyroidism, unspecified; Z79.899 Other long term (current) drug therapy; Z20.822 Contact with and (suspected) exposure to COVID-19
CPT/HCPCS: 36415; 80048; 80305; 80307; 85025; 99284; U0002

== ENCOUNTER 2021-07-02 15:39 | Emergency (ER) | payer MEDICARE ==
[2021-07-02 16:46] LABS: CORONAVIRUS COVID-19 NAA NEGATIVE (NEGATIVE)
[2021-07-02 17:03] VITALS: BP 130/86; PULSE 86
== END 2021-07-02 17:38 | disposition other institution (70) ==
LOC: JP.ED 15:39
DX: F10.220 Alcohol dependence with intoxication, uncomplicated (principal); Y90.8 Blood alcohol level of 240 mg/100 ml or more; I11.0 Hypertensive heart disease with heart failure; I50.9 Heart failure, unspecified; K21.9 Gastro-esophageal reflux disease without esophagitis; F41.9 Anxiety disorder, unspecified; F32.A Depression, unspecified; E03.9 Hypothyroidism, unspecified; E66.9 Obesity, unspecified; Z68.31 Body mass index [BMI] 31.0-31.9, adult; Z20.822 Contact with and (suspected) exposure to COVID-19; Z79.899 Other long term (current) drug therapy
CPT/HCPCS: 0241U; 36415; 80048; 80305-QW; 80307; 85025; 99282; 99284

== ENCOUNTER 2021-09-22 10:39 | Emergency (ER) | payer MEDICARE ==
[2021-09-22] MEDS: LORazepam 2 MG/ML SDV IVPUSH ONE (11:39)
[2021-09-22] MEDS: Sodium Chloride 0.9% 1,000 ML IV SCH (12:21)
[2021-09-22] MEDS: Ondansetron 4 MG Tab.DIS PO ONE (19:36)
[2021-09-22] MEDS: LORazepam 1 MG Tab PO ONE (20:39)
[2021-09-22] MEDS: Propranolol 40 MG Tab PO ONE (21:22)
[2021-09-22] MEDS: MVI, Adult with Vitamin K 10 ML, Thiamine 100 MG, Folic Acid 1 MG, Magnesium Sulfate 3 ... IV SCH ×5 (22:20)
[2021-09-23] MEDS: Acetaminophen 500 MG Tab PO ONE (01:57)
[2021-09-23] MEDS: LORazepam 1 MG Tab PO ONE (04:08)
[2021-09-23 08:52] VITALS: BP 119/63; PULSE 90
== END 2021-09-23 08:50 ==
LOC: JP.ED 10:39
DX: F10.232 Alcohol dependence with withdrawal with perceptual disturbance (principal); F12.90 Cannabis use, unspecified, uncomplicated; Z20.822 Contact with and (suspected) exposure to COVID-19
CPT/HCPCS: 36415; 70450; 80053; 80305; 80307; 81001; 82140; 85025; 86140; 87086; 87088; 87186; 96361; 96365; 96375; 99285; A9270; J2060; J3411; J3475; J7030; Q0162; U0002; J3490

== ENCOUNTER 2021-11-12 07:58 | Emergency (ER) | payer MEDICARE ==
[2021-11-12 08:09] VITALS: BP 127/63; PULSE 68
[2021-11-12] MEDS ORDERED: LORazepam 2 MG/ML SDV IM ONE (08:22)
[2021-11-12] MEDS ORDERED: LORazepam 1 MG Tab PO ONE (08:52)
[2021-11-12 08:59] LABS: ESTIMATED GFR 97 mL/min (>60)
== END 2021-11-12 10:11 ==
LOC: JP.ED 07:58
DX: F10.920 Alcohol use, unspecified with intoxication, uncomplicated (principal); I11.0 Hypertensive heart disease with heart failure; I50.9 Heart failure, unspecified; E66.9 Obesity, unspecified; Z68.30 Body mass index [BMI] 30.0-30.9, adult; Z20.822 Contact with and (suspected) exposure to COVID-19; Z79.899 Other long term (current) drug therapy; Z86.16 Personal history of COVID-19
CPT/HCPCS: 36415; 80048; 80305; 80307; 85025; 96372; 99284; A9270; U0002; 99283

== ENCOUNTER 2022-01-31 11:33 | Emergency (ER) | payer MEDICARE ==
[2022-01-31] MEDS ORDERED: Sodium Chloride 0.9% 500 ML IV ONE (12:30)
[2022-02-26 04:47] LABS: ESTIMATED GFR 94 mL/min (>60)
== END 2022-01-31 15:30 | disposition home or self-care (01) ==
LOC: JP.ED 11:33
DX: F10.129 Alcohol abuse with intoxication, unspecified (principal); F19.10 Other psychoactive substance abuse, uncomplicated; F12.10 Cannabis abuse, uncomplicated
CPT/HCPCS: 36415; 80053; 80305; 80307; 81001; 83690; 85025; 99284; J7040

== ENCOUNTER 2022-03-10 17:42 | Emergency (ER) | payer MEDICARE ==
[2022-03-10] MEDS ORDERED: Ondansetron 4 MG Tab.DIS PO ONE (18:08)
[2022-03-10 18:22] LABS: ESTIMATED GFR 101 mL/min (>60)
[2022-03-11] MEDS ORDERED: OLANZapine 5 MG Tab PO ONE (00:33)
[2022-03-11] MEDS ORDERED: LORazepam 1 MG Tab PO SCH (05:30)
[2022-03-11] MEDS: Ondansetron 4 MG Tab.DIS PO PRN ×2 (05:36→08:52)
[2022-03-11] MEDS ORDERED: LORazepam 1 MG Tab PO ONE (08:45)
[2022-03-11 08:59] VITALS: BP 161/70; PULSE 81
== END 2022-03-11 09:50 | disposition home or self-care (01) ==
LOC: JP.ED 17:42
DX: U07.1 COVID-19 (principal); F10.220 Alcohol dependence with intoxication, uncomplicated; I11.0 Hypertensive heart disease with heart failure; I50.9 Heart failure, unspecified; E66.9 Obesity, unspecified; Z68.27 Body mass index [BMI] 27.0-27.9, adult; Z79.899 Other long term (current) drug therapy
CPT/HCPCS: 36415; 80053; 80307; 85025; 99284; A9270; Q0162; U0002

== ENCOUNTER 2022-05-26 10:24 | Emergency (ER) | payer MEDICARE ==
[2022-05-26 10:46] VITALS: BP 127/74; PULSE 84
== END 2022-05-26 12:09 | disposition home or self-care (01) ==
LOC: JP.ED 10:24
DX: F10.920 Alcohol use, unspecified with intoxication, uncomplicated (principal); I11.0 Hypertensive heart disease with heart failure; I50.9 Heart failure, unspecified; E03.9 Hypothyroidism, unspecified; E66.9 Obesity, unspecified; Z68.30 Body mass index [BMI] 30.0-30.9, adult; Z86.16 Personal history of COVID-19; Z79.899 Other long term (current) drug therapy; Z20.822 Contact with and (suspected) exposure to COVID-19; Y90.8 Blood alcohol level of 240 mg/100 ml or more
CPT/HCPCS: 36415; 80305; 80307; 99284; U0002

== ENCOUNTER 2022-08-21 12:58 | Emergency (ER) | payer MEDICARE ==
[2022-08-21 13:15] VITALS: BP 130/64; PULSE 91
== END 2022-08-21 14:03 | disposition home or self-care (01) ==
LOC: JP.ED 12:58
DX: G89.11 Acute pain due to trauma (principal); R07.81 Pleurodynia; I11.0 Hypertensive heart disease with heart failure; I50.9 Heart failure, unspecified; K21.9 Gastro-esophageal reflux disease without esophagitis; E03.9 Hypothyroidism, unspecified; E66.9 Obesity, unspecified; Z68.29 Body mass index [BMI] 29.0-29.9, adult; Z86.16 Personal history of COVID-19; Z79.899 Other long term (current) drug therapy
CPT/HCPCS: 99283